=== PATIENT | male | born 2000 | race Caucasian/White ===

== ENCOUNTER 2025-04-09 11:07 | Inpatient (IN) | payer MEDICARE, MEDICAID, SELFPAY ==
[2025-04-09 11:44] VITALS: BP 115/53; PULSE 50; RESP 14; TEMP 36.3; O2SAT 100; BMI 29.8
--- NOTE | 2025-04-09 11:44 | ED.PSYCH ---
HPI - Psych General Chief Complaint: Psychiatric Symptoms Stated Complaint: Crisis Time Seen by Provider: 04/09/25 12:05 Source: patient Mode of arrival: ambulatory Limitations: no limitations History of Present Illness ED Provider: Hallie Núñez PA-C HPI Narrative: 25-year-old male with history of schizophrenia, recent homelessness who presents to the ER for psychiatric evaluation. He states he would like to talk to a psychiatric doctor because he is not feeling safe. He states he has been homeless for the last couple of days, previously residing at a friend's house but it ?was not a permanent solution. ? He states he has been hearing and seeing his uncle when he wakes up from sleeping and he is talking a lot of craziness. He also reports he is worried that his mom is in a gang and he feels unsafe. He states he is on risperidone, unknown dose, from [facility] and has been taking as prescribed. He is unable to endorse if the seeing/hearing his uncle is hallucinations or not. He denies any suicidal or homicidal thoughts. He states he is anxious and worried. He does not feel safe. MD complaint: anxiety Onset (ago): day(s) Duration: getting worse Context: significant life stressor Associated symptoms: denies other symptoms Treatments prior to arrival: none Related Data Home Medications ?Medication ?Instructions ?Recorded ?Confirmed lurasidone 40 mg tablet (Latuda) 40 mg PO DAILY@1700 04/10/25 04/10/25 melatonin 3 mg tablet 3 mg PO BEDTIME 04/10/25 04/10/25 Allergies Allergy/AdvReac Type Severity Reaction Status Date / Time peanut Allergy Hives Verified 04/09/25 11:48 Review of Systems Review of Systems: Yes all other systems are reviewed and are negative PMFSH Social History Social History Household Members: None Housing: Homeless Do you presently have visiting nurse or other home services: No Patient Tobacco Use Status: Never used Tobacco Smoked in Last 30 Days: No Use of substances other than those prescribed or required for medical reasons: Yes Substance Use Type: Marijuana Substance Use Frequency: Chronic Longstanding Last Used Substance: Hours (ago) Currently Displaying Signs/Symptoms of Drug Intoxication Withdrawal: No Any prior treatment program specific to substance use: No Have you been hit, kicked, punched, or otherwise hurt by someone within the past year? If so, by whom?: No Do you feel safe in your current relationship?: No Current Relationship Is there a partner from a previous relationship who is making you feel unsafe now?: No Are you made to feel afraid or neglected: No Advance Directives: No Advance Directives Information Provided: No Do you have thoughts of harming others: None Do you have a plan to hurt others: No Plan Recently lost weight without trying: No Eating poorly because of decreased appetite: No Nutrition Risks: No Nutritional Risk Poor oral hygiene: No service: No Sexual orientation: Decline to Answer Physical Exam Exam: Exam: Appearance: Alert. Oriented X3. No acute distress. Head: normocephalic, atraumatic. Eyes: Pupils equal, round and reactive to light. ENT: Pharynx normal. No tonsillar swelling or exudate. Neck: Normal inspection. Neck supple. CVS: Normal heart rate and rhythm. Pulses normal. Respiratory: No respiratory distress. Breath sounds normal. Abdomen: Soft and nontender. +BS x4 Skin: Skin warm and dry. Normal skin color. Normal skin turgor. No rashes. Extremities: No lower extremity edema. No joint swelling. Neuro/psych: Oriented X 3. No motor deficit. No sensory deficit. CN II-XII intact. Flat affect, makes eye contact. Difficulty answering some questions, delayed responses. no SI or HI. does not seem to be responding to any internal stimuli Vital Signs: Vital Signs: Last Vital Signs Temp 96.9 F 04/12/25 08:00 Pulse 71 04/12/25 08:00 Resp 18 04/12/25 08:00 BP 134/85 04/12/25 08:00 Pulse Ox 98 04/12/25 08:00 O2 Del Method Room Air 04/12/25 08:00 BMI result Body Mass Index 29.8 Course Course Course Narrative: This is a rapid medical exam performed by Jermaine Bruno NP: Additional HPI, ROS, PE not included below will be deferred to primary provider. Patient is a 25-year-old male presenting to the ED stating that he feels unsafe, but denies SI, HI, AH, VH. Flat affect in triage. States he is on the waiting list for a therapist, currently has a psychiatrist. Plan: Med clearance, CARE team eval Reevaluation(s) Reevaluation #1: Physician observation started at 12:44. Patient placed in physician observation because patient is awaiting CARE team evaluation for the possible need of inpatient psych admission. At the time observation was started patient's vital signs were stable. Patient is alert and oriented. Neuro exam is non-focal. CV: RRR and lungs are clear. Will continue to monitor. Time: 12:44 Reevaluation #2: patient seen by CARE team - recommending inpatient level of care, will be a section 12 Time: 13:28 Reevaluation #3: Time: 06:47 Date: 04/10/25 Provider: Giuliano Morgan MD Patient in physician observation for psychiatric evaluation.? No acute events reported overnight. No current complaints. VS stable.? Patient is in bed search status/pending CARE team evaluation. Will continue to monitor. Medications Administered Generic Name Dose Route Start Last Admin Trade Name Freq PRN Reason Stop Dose Admin Lurasidone HCl 40 mg 04/09/25 17:00 04/11/25 17:25 Lurasidone Hcl 40 Mg Tablet PO 40 mg DAILY@1700 RIKKI Administration Magnesium Hydroxide 30 ml 04/10/25 17:11 04/11/25 13:51 Milk Of Magnesia 30 Ml Oral.Susp PO 30 ml DAILY PRN Administration Constipation Melatonin 3 mg 04/10/25 21:00 04/11/25 21:03 Melatonin 3 Mg Tablet PO Not Given BEDTIME [facility] Medical Decision Making Medical Decision Making [facility] Narrative: 25 yo male with history of schizophrenia, homeless presenting with anxiety, feeling unsafe with concerns for his seeing and hearing of his uncle being hallucinations. labs show some mildly elevated bicarb 31, BUN 21 with normal SCr. likely due to some mild dehydration. he also has mildly elevated transaminases with normal bilirubin and ALP. no RUQ pain. denies drug use. does not have previous labs to compare. PO tray ordered. Will have the crisis team evaluate him for possible need of inpatient psychiatric care - admit to [facility] Differential Diagnosis Differential Diagnoses: The differential diagnosis associated with the presentation includes substance induced mood disorder, acute psychosis, schizophrenia, schizoaffective disorder, PTSD, bipolar disorder, major depression with psychotic features Admission/Observation Consideration of admission/observation: Escalation of care including admission/observation considered Lab Data [facility] Lab Attestation statement: I reviewed the patient's lab results. mild anemia, leukopenia, mildly elevated bicarb 04/09/25 11:54 04/11/25 09:09 Labs: Lab Results 04/09/25 04/09/25 Range/Units 11:54 12:23 WBC 3.0 L (4.8-10.8) X10*3/uL RBC 3.97 L (4.60-5.80) X10*6/uL Hgb 12.5 L (14.0-18.0) g/dl Hct 37.1 L (42.0-52.0) % MCV 93.5 (80.0-98.0) fL MCH 31.5 (27.0-33.0) pg MCHC 33.7 (31.0-36.0) g/dl RDW 13.2 (11.0-16.0) % Plt Count 236 (160-400) X10*3/uL MPV 9.9 (9.4-12.4) fL Immature Gran % (Auto) 0.0 (0.0-0.4) % Neut % (Auto) 45.0 (45-73) % Lymph % (Auto) 36.9 (20-40) % [place] % (Auto) 10.4 (2-11) % Eos % (Auto) 6.4 H (0-4) % Baso % (Auto) 1.3 (0-2) % Lymph # (Auto) 1.1 L (1.2-4.9) X10*3/uL [place] # (Auto) 0.3 (0.1-1.2) X10*3/uL Eos # (Auto) 0.2 (0.0-0.4) X10*3/uL Baso # (Auto) 0.0 (0.0-0.2) X10*3/uL Abs Immat Gran (auto) 0.00 (0.00-0.03) X10*3/uL Absolute Neuts (auto) 1.3 L (2.0-8.3) x10*3/uL Absolute Nucleated RBC 0.000 (0.0-0.012) X10*3/uL Nucleated RBC % (auto) 0.0 (0.0-0.2) /100WBC Sodium 140 (135-145) mmol/L Potassium 4.1 (3.3-5.1) mmol/L Chloride 103 (96-108) mmol/L Carbon Dioxide 31 H (22-29) mmol/L Anion Gap 10 L (12-20) BUN 21 H (9-16) mg/dL Creatinine 1.03 (0.5-1.4) mg/dL Estim Creat Clear Calc 122.5 Estimated GFR > 60 Random Glucose 93 (60-115) mg/dL Calcium 8.5 (8.4-10.2) mg/dL Total Bilirubin 0.4 (0.0-1.0) mg/dL AST 52 H (5-37) U/L ALT 45 H (0-40) U/L Alkaline Phosphatase 60 (39-117) U/L Total Protein 6.3 L (6.5-8.0) g/dL Albumin 4.3 (3.5-5.0) g/dL Urine Color Yellow Urine Appearance Clear Urine pH 7.0 (5.0-9.0) Ur Specific [place] <= 1.005 (1.005-1.025) Urine Protein Negative (Neg-Trace) mg/dL Urine Glucose (UA) Negative (Negative) mg/dL Urine Ketones Negative (Negative) mg/dL Urine Blood Negative (Negative) Urine Nitrite Negative (Negative) Ur Leukocyte Esterase Trace H (Negative) Urine RBC 0-2 (0-2) /HPF Urine WBC 0-5 (0-5) /HPF Ur Squamous Epith Cells 0-2 (0-2) /HPF Urine Bacteria None Seen (None Seen) Hyaline Casts 0-2 (0-2) /LPF Urine Opiates Screen Not Detected (Not Detect) Ur Buprenorphine Scrn Not Detected (Not Detect) ng/mL Ur Oxycodone Screen Not Detected (Not Detect) ng/mL Urine Methadone Screen Not Detected (Not Detect) ng/mL Urine Fentanyl Screen Not Detected (Not Detect) Ur Barbiturates Screen Not Detected (Not Detect) Ur Phencyclidine Scrn Not Detected (Not Detect) Ur Amphetamines Screen Not Detected (Not Detect) U Benzodiazepines Scrn Not Detected (Not Detect) Urine Cocaine Screen Not Detected (Not Detect) U Marijuana (THC) Screen POSITIVE H (Not Detect) Ethyl Alcohol 10 mg/dL Influenza Type A (PCR) NEGATIVE (Negative) Influenza Type B (PCR) NEGATIVE (Negative) RSV RNA Qual (PCR) NEGATIVE (Negative) SARS-CoV-2 RNA (RT-PCR) NEGATIVE (Negative) Prescription Management I considered prescription management with: Other (antipsychotic) Chronic Conditions Patient?s care impacted by: Other (schizophrenia) Social Determinants Patient?s care significantly limited by Social Determinants of Health including: Inadequate housing, Problems related to primary support group and Other Social Determinant of Health Critical Care Time Critical Care Time Critical Care Time: No Discharge Plan Discharge Clinical Impression: Schizophrenia Qualifiers: Schizophrenia type: unspecified Qualified Code(s): F20.9 - Schizophrenia, unspecified Patient Disposition: Admitted As Inpatient Interventions: Admission Worksheet (ED) Last Done: 04/10/25 17:39 Discharge Date/Time: 04/10/25 17:57
[2025-04-09 12:04] LABS: MANUAL DIFF FLAG NO
[2025-04-09 12:06] LABS: Hematocrit 37.1 % (42.0-52.0); Hemoglobin 12.5 g/dl (14.0-18.0); Imm Gran Abs Auto 0.00 X10*3/uL (0.00-0.03); Imm Gran Pct Auto 0.0 % (0.0-0.4); Lymphocytes Absolute Auto 1.1 X10*3/uL (1.2-4.9); Mean Corpuscular HGB Conc 33.7 g/dl (31.0-36.0); Mean Corpuscular Hemoglobin 31.5 pg (27.0-33.0); Mean Corpuscular Volume 93.5 fL (80.0-98.0); NRBC Abs Auto 0.000 X10*3/uL (0.0-0.012); NRBC Pct Auto 0.0 /100WBC (0.0-0.2); Platelet Count 236 X10*3/uL (160-400); Red Blood Count 3.97 X10*6/uL (4.60-5.80); White Blood Count 3.0 X10*3/uL (4.8-10.8)
[2025-04-09 12:27] LABS: Alanine Aminotransferase 45 U/L (0-40); Albumin Level 4.3 g/dL (3.5-5.0); Alkaline Phosphatase 60 U/L (39-117); Anion Gap 10 (12-20); Aspartate Amino Transferase 52 U/L (5-37); Blood Urea Nitrogen 21 mg/dL (9-16); Calcium 8.5 mg/dL (8.4-10.2); Carbon Dioxide 31 mmol/L (22-29); Chloride 103 mmol/L (96-108); Creatinine Clr Calc Pharmacy 122.5; Estimated Glomerular Filt Rate > 60; Potassium 4.1 mmol/L (3.3-5.1); Sodium 140 mmol/L (135-145); Total Protein 6.3 g/dL (6.5-8.0)
--- OUTSIDE RECORDS SUMMARY | 2025-04-09 12:33 | XMS_ITS | Clinical Summary ---
Author Organization [facility] Address [address] [place] [address] Phone Care Team Providers Care Mental Retardation Aide Name Role Phone Physician, Pcp Unknown Primary Care Provider Tomasa vailable Allergies Active Allergy Reactions Criticality Noted Date Comments Peanut 03/14/2025 Shellfish Derived 03/15/2025 Medications Lactobacillus acidophilus 100 mg (1 billion cell) capsule Take 1 capsule by mouth 2 (two) times a day. 60 each 5 04/14/20 25 Active metoclopramide (REGLAN) 10 mg tablet Take 1 tablet (10 mg total) by mouth every 6 (six) hours for 3 days. 12 each 5 03/18/20 25 Encounters Date Type Department Care Team Description 03/15/2025 10:20 PM EDT - 03/16/2025 12:12 AM EDT Emergency [facility] Emergency [address] [place] [phone] Nauseated (Primary Dx); Homeless Discharge Disposition: Home or Self Care 03/15/2025 12:12 AM EDT - 03/15/2025 12:29 AM EDT Emergency [facility] Emergency [address] [place] [phone] Lalit Garcia MD Diarrhea, unspecified type (Primary Dx) Discharge Disposition: Home or Self Care from Last 3 Months Social History Tobacco Use Types Packs/Day Years Used Date Smoking Tobacco: Never Smokeless Tobacco: Never Tobacco Cessation:Counseling Given: Not Answered Sex and Gender Information Value Date Recorded Sex Assigned at Not on file Legal Sex Male 1:55 PM EST Gender Identity Not on file Sexual Orientation Not on file Obstetrics History Last Filed Vital Signs Vital Sign Reading Time Taken Comments Blood Pressure 115/70 03/15/2025 9:38 PM EDT Pulse 56 03/15/2025 9:38 PM EDT Temperature 36.5 C (97.7 F) 03/15/2025 9:38 PM EDT Respiratory Rate 16 03/15/2025 9:38 PM EDT Oxygen Saturation 97% 03/15/2025 9:38 PM EDT Inhaled Oxygen Concentration - - Weight 85.3 kg (188 lb) 03/14/2025 10:48 PM EDT Height 175.3 cm (5' 9 ) 03/14/2025 10:48 PM EDT Body Mass Index 27.76 03/14/2025 10:48 PM EDT Plan of Treatment Health Maintenance Due Date Last Done Comments Pneumococcal Vaccine: Pediatrics (0 to 5 Years) and At-Risk Patients (6 to 49 Years) (1 of 1 - PPSV23) 2006 02/06/2002, 2000, 2000, Additional history exists HIV Screening 07/29/2022 Hepatitis C Screening 07/29/2022 Medicare Annual Wellness Visit 07/29/2022 Social Influencers of Health Screening 07/29/2022 COVID-19 Vaccine ( season) 2024 Depression Screening 08/30/2024 Influenza Vaccine (#1) 2025 , 11/27/2021, 06/17/2018, Additional history exists DTaP,Tdap,and Td Vaccines (8 - Td or Tdap) 02/14/2030 02/15/2020, 12/02/2011, 05/27/2005, Additional history exists Hepatitis B Vaccines Completed 2000, 2000, 2000 HIB Vaccines Completed 02/06/2002, 11/29, 2000, Additional history exists IPV Vaccines Completed 05/27/2005, 10/28, 2000, Additional history exists MMR Vaccines Completed 05/27/2005, 02/06/2002 Varicella Vaccines Completed 09/17/2010, 04/18/2001 Hepatitis A Vaccines Completed 12/02/2011, 12/07/19 08 HPV Vaccines Completed 03/30/2013, 05/01, 02/24/2012 Meningococcal ACWY Vaccine Completed 04/28/2016, Meningococcal B Vaccine Aged Out No l onger eligible based on patient's age to complete this topic RSV Immunization Patients Under 20 months Aged Out No longer eligible based on patient's age to complete this topic Insurance MEDICAID - [place] MEDICARE Care Teams Mental Retardation Aide Relationship Specialty Start Date End Date Physician, Pcp Unknown PCP - General 03/15/25
[2025-04-09 12:39] LABS: Appearance Urine Clear; Glucose Urine UA Negative (Negative); PH 7.0 (5.0-9.0); Specific Gravity - Urine <= 1.005 (1.005-1.025); UMIC TRIGGER UACC YES
[2025-04-09 12:42] LABS: Resp Syncy Virus RNA Qual PCR NEGATIVE (Negative); SARS COV2 PCR INHOUSE NEGATIVE (Negative)
[2025-04-09 12:47] LABS: Cannabinoid Screen Urine POSITIVE (Not Detect)
--- NOTE | 2025-04-09 14:01 | MHC.CARE ---
Patient will be ADULT IPLOC. Section 12a in chart for safety.
[2025-04-09 15:45] VITALS: BP 120/65; PULSE 58; RESP 16; TEMP 36.6; O2SAT 99
[2025-04-09 21:46] VITALS: BP 118/63; PULSE 56; RESP 16; TEMP 37.3; O2SAT 100
--- NOTE | 2025-04-10 | ECG_ITS ---
Test Reason : R/O PROLONGED QT Blood Pressure : */* mmHG Vent. Rate : 55 BPM Atrial Rate : 55 BPM P-R Int : 154 ms QRS Dur : 108 ms QT Int : 418 ms P-R-T Axes : 44 19 1 degrees QTcB Int : 399 ms Sinus bradycardia Nonspecific T wave abnormality Abnormal ECG No previous ECGs available Referred By: Valencia Núñez Electronically Signed By: Leif Ramsey
[2025-04-10 06:28] VITALS: BP 117/65; PULSE 60; RESP 16; TEMP 37.2; O2SAT 99
--- NOTE | 2025-04-10 07:58 | PC.NURSE ---
Assumed care of patient at 0645, patient appears to be in no apparent distress this am, calm and cooperative, resting on couch in BH 8. Continue plan of care for IPLOC
[2025-04-10 09:41] VITALS: BP 121/59; PULSE 68; RESP 16; TEMP 37.1; O2SAT 97
--- NOTE | 2025-04-10 10:51 | PHA.MEDREC ---
Addendum entered by Heidi Graf RPh 04/10/25 10:53: reviewed by ady Original Note: Pharmacy Consult ? Medication Reconciliation Pharmacy has completed the medication reconciliation. Spoke with pt and he confirmed he is only taking Lurasidone 40mg 1 QD and Melatonin 3mg tabs 1 at bedtime for sleep and nothing else at this time.
[2025-04-10 14:47] VITALS: BP 126/68; PULSE 78; RESP 15; TEMP 36; O2SAT 98
--- NOTE | 2025-04-10 18:47 | PC.ADMIT ---
PT IS A 25 YEAR OLD, MALE ADMITTED TO [facility] FROM [facility] ON A CONDITIONAL VOLUNTARY. PT HAS A PREVIOUS DIAGNOSIS OF SCHIZOPHRENIA. PT REPORTS THAT HE HAS BEEN MED COMPLIANT BUT NURSE TO NURSE FROM ED RN EXPRESSED NON-COMPLIANCE WITH PSYCHIATRIC MEDICATIONS PRIOR TO ARRIVAL TO HOSPITAL. PT IS INDEPENDENT WITH AMBULATION AND ADLS. DENIES ANY MEDICAL CONDITIONS. PT WAS COMPLIANT WITH FASHION MERCHANDISER AND SKIN CHECK WAS UNREMARKABLE. PT REPORTS THAT HE CAME IN BECAUSE HE HAS BEEN LIVING ON THE STREETS, HAS NO FAMILY OR SUPPORT SYSTEM OTHER THAN A FEW FRIENDS AND WAS SCARED FOR HIS LIFE . WHEN RN ASKED IF PT WAS AFRAID OF HIMSELF OR OTHERS, HE STATED MYSELF BUT DENIED ANY THOUGHTS TO HARM OR KILL HIMSELF. PT DENIES SI/HI. DENIES ANY AUDITORY, VISUAL, OR TACTILE DISTURBANCES. PT REPORTS SLEEPING WELL AND EATING WELL. PT HAS A CONSTRICTED AFFECT AND REPLIES IN WORD WORD ANSWERS. PT IS GUARDED AND DISMISSIVE BUT PLEASANT. DENIES HAVING ANY RESTRAINTS OR ASSAULTIVE BEHAVIORS DURING PRIOR HOSPITALIZATIONS. FEELS SAFE ON UNIT.
[2025-04-10 20:00] VITALS: BP 134/73; PULSE 82; RESP 16; TEMP 36.6; O2SAT 98
--- NOTE | 2025-04-10 20:29 | HO.PSYADMNOT ---
HPI Date of Service: 04/10/25 Chief Complaint: decompensated Sources of Information: patient interviewed, chart reviewed and crisis/core team assessment reviewed HPI Subjective Notes: Ward Warning and Conditional Voluntary Healthcare Proxy: No Guardianship: No Medical Problems Affecting Mental Status: No Narrative: Per care team note, patient is a 25 years old single Slovak-speaking male with history of schizophrenic who self presented to the ED reporting feeling unsafe and homelessness. Patient reports he has been seeing and hearing his uncle and unable to identify if this is a hallucinations or not. He also will believe his mom is in a gang. Precipitants: Been homeless for about a month, and feel unsafe in community, I was feeling unsafe, I do not want to get worse as I am on the street . Not able to identify what his mental health worse, increased depression anxiety Patient able to disclose more details why he does not feel safe, he reports that he getting sick easily, specific saying that he may get fever. Reports has no family support, no outpatient supports except for psychiatrist. He has not talking to family for a long time, as I do not want to talk to them. We are not understanding, and can not communicate well . Sometimes he stay with his friend. Denies any legal issues. However reports that the charge of stealing was dropped of this year Denies access to guns. Denies SI/SIB/HI/AVH. Denies suicidal thoughts history. Denies suicide attempt history. Mood is moderate anxiety and depression, denies sleep or appetite issues, speech is monotone, ? Thought blocks, he is limited, slow to respond, poor insight and judgment. Do not appear to be psychotic, do not make any delusional or paranoid statements. reports consistently taking medication. Housing is unstable, he is able to advocate for self. He has been staying with a friend for the past couple of weeks. He can not identify goals that he wants work on while he is here. . Past Psychiatric History: Reports at least 10 inpatient level of care admissions, with last admission was in January at [facility] for the same reason: Being homeless. No history of PHP, this tox. Outpatient psychiatrist Betzy Ribera- [facility]: Last seen was last month. He is on waiting list for therapist. He has PCP, however not sure when he last seen. Medication trials: Latuda. He can not recall any trials before. Medical Evaluation Reviewed: Yes PMFSH Narrative: Reports having asthma. Narrative: Surgery on left arm hx Family History: Reported that he left his parents at 18 years old, has not talking to them, feel like they can not communicate well, I do not want to talk to them we are not understanding . Reported that his parents have mental health illnesses, unsure in details. Reports that he is not sure if any substance use in his family. He also has a older brother who is autistic. Social History: He is single, never , has no children, graduated from high school, was in 1st year of college but dropped out. He used to work at [employer] in the [employer] back in 2022. Currently unemployed. Being homeless, sometimes stay with a friend. Substance History: Denies substance use. Denies cigarette smoking. However reports smoking marijuana daily. Trauma History: Denies trauma history Diagnostics Vital Signs (24Hr): Vital Signs - 24 hr 04/09/25 21:46 04/10/25 06:28 04/10/25 09:41 Temperature 99.2 F 98.9 F 98.7 F Pulse Rate 56 60 68 Respiratory Rate 16 16 16 Blood Pressure 118/63 117/65 121/59 L Pulse Oximetry 100 99 97 Oxygen Delivery Method Room Air Room Air Room Air 04/10/25 14:47 Temperature 96.8 F Pulse Rate 78 Respiratory Rate 15 Blood Pressure 126/68 Pulse Oximetry 98 Oxygen Delivery Method Room Air BMI result Body Mass Index 29.8 Labs 04/09/25 11:54 04/09/25 11:54 Labs: Laboratory Results - last 48 hr 04/09/25 04/09/25 11:54 12:23 WBC 3.0 L RBC 3.97 L Hgb 12.5 L Hct 37.1 L MCV 93.5 MCH 31.5 MCHC 33.7 RDW 13.2 Plt Count 236 MPV 9.9 Immature Gran % (Auto) 0.0 Neut % (Auto) 45.0 Lymph % (Auto) 36.9 [place] % (Auto) 10.4 Eos % (Auto) 6.4 H Baso % (Auto) 1.3 Lymph # (Auto) 1.1 L [place] # (Auto) 0.3 Eos # (Auto) 0.2 Baso # (Auto) 0.0 Abs Immat Gran (auto) 0.00 Absolute Neuts (auto) 1.3 L Absolute Nucleated RBC 0.000 Nucleated RBC % (auto) 0.0 Sodium 140 Potassium 4.1 Chloride 103 Carbon Dioxide 31 H Anion Gap 10 L BUN 21 H Creatinine 1.03 Estim Creat Clear Calc 122.5 Estimated GFR > 60 Random Glucose 93 Calcium 8.5 Total Bilirubin 0.4 AST 52 H ALT 45 H Alkaline Phosphatase 60 Total Protein 6.3 L Albumin 4.3 Urine Color Yellow Urine Appearance Clear Urine pH 7.0 Ur Specific [place] <= 1.005 Urine Protein Negative Urine Glucose (UA) Negative Urine Ketones Negative Urine Blood Negative Urine Nitrite Negative Ur Leukocyte Esterase Trace H Urine RBC 0-2 Urine WBC 0-5 Ur Squamous Epith Cells 0-2 Urine Bacteria None Seen Hyaline Casts 0-2 Urine Opiates Screen Not Detected Ur Buprenorphine Scrn Not Detected Ur Oxycodone Screen Not Detected Urine Methadone Screen Not Detected Urine Fentanyl Screen Not Detected Ur Barbiturates Screen Not Detected Ur Phencyclidine Scrn Not Detected Ur Amphetamines Screen Not Detected U Benzodiazepines Scrn Not Detected Urine Cocaine Screen Not Detected U Marijuana (THC) Screen POSITIVE H Ethyl Alcohol 10 Influenza Type A (PCR) NEGATIVE Influenza Type B (PCR) NEGATIVE RSV RNA Qual (PCR) NEGATIVE SARS-CoV-2 RNA (RT-PCR) NEGATIVE Meds/Allergies Meds Home Medications ?Medication ?Instructions ?Recorded ?Confirmed ?Type lurasidone 40 mg tablet (Latuda) 40 mg PO DAILY@1700 04/10/25 04/10/25 History melatonin 3 mg tablet 3 mg PO BEDTIME 04/10/25 04/10/25 History Allergies Allergies Allergy/AdvReac Type Severity Reaction Status Date / Time peanut Allergy Hives Verified 04/09/25 11:48 Mental Status Exam Mental Status Exam Narrative: Patient is alert and oriented; behavior is cooperative, with mild to moderate anxiety and depression; patient is not in distress; dressed in hospital attire with kempt hair and adequate hygiene; mood is described as anxious and affect congruent; eye contact appropriate; Speech is normal rate, not talkative, poverty of thoughts, volume and prosody and not pressured; no psychomotor agitation/retardation present; thought process is organized and goal directed; Thought content is WNL, pertinent to relevant topics and without any delusional content, paranoid ideation or grandiosity; ? if thought blocked or at baseline, slow to respond. denies any SI/SIB/HI. Denies AH and there is no evidence of perceptual disturbance. Patient's insight and judgment poor. Assessment & Plan Assessment & Plan (1) Schizophrenia: Status: Acute Qualifiers: Schizophrenia type: unspecified Qualified Code(s): F20.9 - Schizophrenia, unspecified Code(s): F20.9 - Schizophrenia, unspecified Plan HPI: patient is a 25 years old single Slovak-speaking male with history of schizophrenic who self presented to the ED reporting feeling unsafe and homelessness. Patient reports he has been seeing and hearing his uncle and unable to identify if this is a hallucinations or not. He also will believe his mom is in a gang. Formulation/clinical reasoning: Feeling unsafe in community, being homeless which increased depression and anxiety, no family support, no support system, self for the psychiatry. History of schizophrenic, potential not compliant with medication, or at risk of not able to access to care. Increased marijuana use, presented with paranoid thoughts. Given the above information, patient could be benefit to admitted to the restrictive environment, monitor for safety, monitor for mental status, monitor psychosis, provide therapeutic environment where patient can learn coping skills for his depression and anxiety. Possible refer patient back to outpatient psychiatry services, plus therapist for aftercare. Hospital course: 04/10/25: Continue with home medication. Educate patient on Latuda which should be taken with food. Plan Patient on 15 minute checks for safety. Admitted to M3. CV. Diagnosis if necessary. Work with treatment team to do collateral and possible senior living for aftercare. Refer patient back to outpatient psychiatric services. He is on waiting list for therapist. Patient educated on: diagnosis, medication risk/benefits, substance abuse and therapeutic strategies Reason for continued inpatient stay Substantial Risk for: med/psych decompensation Statement Statement: I have reviewed the history and physical and performed a pertinent examination on my patient. No changes have occurred unless specified. If the History and Physical was not performed prior to admission, the Hospitalist's service will be consulted for completing the admission physical. Time Spent With Patient Time: Total time managing care of this patient today ____ minutes.
[2025-04-11 07:51] VITALS: BP 149/96; PULSE 54; RESP 16; TEMP 36.2; O2SAT 98
--- NOTE | 2025-04-11 09:07 | P.PNPSI_ITS ---
Subjective Subjective Date of Service: 04/11/25 Reason For Visit: decompensated Subjective Notes: Conditional Voluntary Interim History: Patient notes that he is feeling good. He slept well last night. He denies anxiety or depression. He denies SI/HI/AH/VH. He notes that he has been homeless for a long time and has been struggling to find a jail. Medication Compliance: Yes Side effects from medications: No Attending Groups: Intermittent Review of Systems Acute medical concerns: No Mental Status Exam Mental Status Exam Narrative: Appearance: Casually dressed, adequate hygiene Behavior: Calm and cooperative throughout the interview. Eye contact is appropriate, and there are no signs of psychomotor agitation or retardation Speech: Normal volume and prosody Thought process: Logical and goal-directed Thought content: Future oriented no self-harming thoughts Mood: Calm Affect: Flat SI:denies HI:denies VH/AH:none Delusions: None Insight/judgment: Fair insight and judgment Memory/cog: Alert, oriented x 4. grossly intact to conversational testing Diagnostics Vital Signs (24Hr): Vital Signs - 24 hr 04/10/25 09:41 04/10/25 14:47 04/10/25 20:00 Temperature 98.7 F 96.8 F 97.8 F Pulse Rate 68 78 82 Respiratory Rate 16 15 16 Blood Pressure 121/59 L 126/68 134/73 Pulse Oximetry 97 98 98 Oxygen Delivery Method Room Air Room Air Room Air 04/11/25 07:51 Temperature 97.2 F Pulse Rate 54 Respiratory Rate 16 Blood Pressure 149/96 H Pulse Oximetry 98 Oxygen Delivery Method Room Air BMI result Body Mass Index 29.8 Labs 04/09/25 11:54 04/11/25 09:09 Labs: Laboratory Results - last 48 hr 04/09/25 04/09/25 11:54 12:23 WBC 3.0 L RBC 3.97 L Hgb 12.5 L Hct 37.1 L MCV 93.5 MCH 31.5 MCHC 33.7 RDW 13.2 Plt Count 236 MPV 9.9 Immature Gran % (Auto) 0.0 Neut % (Auto) 45.0 Lymph % (Auto) 36.9 [place] % (Auto) 10.4 Eos % (Auto) 6.4 H Baso % (Auto) 1.3 Lymph # (Auto) 1.1 L [place] # (Auto) 0.3 Eos # (Auto) 0.2 Baso # (Auto) 0.0 Abs Immat Gran (auto) 0.00 Absolute Neuts (auto) 1.3 L Absolute Nucleated RBC 0.000 Nucleated RBC % (auto) 0.0 Sodium 140 Potassium 4.1 Chloride 103 Carbon Dioxide 31 H Anion Gap 10 L BUN 21 H Creatinine 1.03 Estim Creat Clear Calc 122.5 Estimated GFR > 60 Random Glucose 93 Calcium 8.5 Total Bilirubin 0.4 AST 52 H ALT 45 H Alkaline Phosphatase 60 Total Protein 6.3 L Albumin 4.3 Urine Color Yellow Urine Appearance Clear Urine pH 7.0 Ur Specific [place] <= 1.005 Urine Protein Negative Urine Glucose (UA) Negative Urine Ketones Negative Urine Blood Negative Urine Nitrite Negative Ur Leukocyte Esterase Trace H Urine RBC 0-2 Urine WBC 0-5 Ur Squamous Epith Cells 0-2 Urine Bacteria None Seen Hyaline Casts 0-2 Urine Opiates Screen Not Detected Ur Buprenorphine Scrn Not Detected Ur Oxycodone Screen Not Detected Urine Methadone Screen Not Detected Urine Fentanyl Screen Not Detected Ur Barbiturates Screen Not Detected Ur Phencyclidine Scrn Not Detected Ur Amphetamines Screen Not Detected U Benzodiazepines Scrn Not Detected Urine Cocaine Screen Not Detected U Marijuana (THC) Screen POSITIVE H Ethyl Alcohol 10 Influenza Type A (PCR) NEGATIVE Influenza Type B (PCR) NEGATIVE RSV RNA Qual (PCR) NEGATIVE SARS-CoV-2 RNA (RT-PCR) NEGATIVE Medications Medications Current Medications Acetaminophen (Acetaminophen 325 Mg Tablet) 650 mg PO Q6H PRN PRN Reason: Headache/Pain, Scale 1-10 Al Hydroxide/Mg Hydroxide (Magnesium Hydrox/Alum Hydrox 30 Ml Oral.Susp) 30 ml PO Q6H PRN PRN Reason: Heartburn/Nausea Hydroxyzine HCl (Hydroxyzine Hcl 25 Mg Tablet) 25 mg PO Q6H PRN PRN Reason: mild anxiety Lurasidone HCl (Lurasidone Hcl 40 Mg Tablet) 40 mg PO DAILY@1700 [facility] Last Admin: 04/10/25 16:16 Dose: 40 mg Magnesium Hydroxide (Milk Of Magnesia 30 Ml Oral.Susp) 30 ml PO DAILY PRN PRN Reason: Constipation Melatonin (Melatonin 3 Mg Tablet) 3 mg PO BEDTIME [facility] Last Admin: 04/10/25 21:05 Dose: Not Given Nicotine (Nicotine 21 Mg Patch.Td24) 21 mg TRANSDERMA DAILY PRN PRN Reason: smoking cessation Nicotine Polacrilex (Nicotine Polacrilex 2 Mg Gum) 4 mg BUCCAL Q2H PRN PRN Reason: Nicotine Cravings Olanzapine (Olanzapine 5 Mg Tablet) 5 mg PO TID PRN PRN Reason: agitation Trazodone HCl (Trazodone Hcl 50 Mg Tablet) 50 mg PO BEDTIME MRX1 PRN PRN Reason: Insomnia Allergies Allergies Allergy/AdvReac Type Severity Reaction Status Date / Time peanut Allergy Hives Verified 04/09/25 11:48 Assessment & Plan Assessment & Plan (1) Schizophrenia: Qualifiers: Schizophrenia type: unspecified Qualified Code(s): F20.9 - Schizophrenia, unspecified Status: Acute Code(s): F20.9 - Schizophrenia, unspecified Plan HPI: patient is a 25 years old single [place] Islander-speaking male with history of schizophrenic who self presented to the ED reporting feeling unsafe and homelessness. Patient reports he has been seeing and hearing his uncle and unable to identify if this is a hallucinations or not. He also will believe his mom is in a gang. Formulation/clinical reasoning: Feeling unsafe in community, being homeless which increased depression and anxiety, no family support, no support system, self for the psychiatry. History of schizophrenic, potential not compliant with medication, or at risk of not able to access to care. Increased marijuana use, presented with paranoid thoughts. Given the above information, patient could be benefit to admitted to the restrictive environment, monitor for safety, monitor for mental status, monitor psychosis, provide therapeutic environment where patient can learn coping skills for his depression and anxiety. Possible refer patient back to outpatient psychiatry services, plus therapist for aftercare. Hospital course: 04/10/25: Continue with home medication. Educate patient on Latuda which should be taken with food. 04/11: Continue current treatment regimen. aircraft layout worker to assist with housing placement. Plan Patient on 15 minute checks for safety. Admitted to M3. CV. Diagnosis if necessary. Work with treatment team to do collateral and possible jail for aftercare. Refer patient back to outpatient psychiatric services. He is on waiting list for therapist. Patient educated on: therapeutic strategies Reason for continued inpatient stay Substantial Risk for: rapid decompensation Time Spent With Patient Time: Total time managing care of this patient today ____ minutes.
[2025-04-11 09:43] LABS: Alanine Aminotransferase 47 U/L (0-40); Albumin Level 4.7 g/dL (3.5-5.0); Alkaline Phosphatase 65 U/L (39-117); Anion Gap 12 (12-20); Aspartate Amino Transferase 36 U/L (5-37); Blood Urea Nitrogen 18 mg/dL (9-16); Calcium 9.3 mg/dL (8.4-10.2); Carbon Dioxide 29 mmol/L (22-29); Chloride 100 mmol/L (96-108); Cholesterol 171 mg/dL (<200); Creatinine Clr Calc Pharmacy 124.9; Estimated Glomerular Filt Rate > 60; HDL Cholesterol 66 mg/dL (>40); Potassium 4.4 mmol/L (3.3-5.1); Sodium 137 mmol/L (135-145); Total Protein 7.0 g/dL (6.5-8.0); Triglycerides 92 mg/dL (<150)
[2025-04-11 11:24] LABS: Hemoglobin A1C 161.3151 umol/L; Total Hemoglobin (HGBA1C) 4438.5322 umol/L
[2025-04-11] MEDS: Milk of Magnesia 30 ML ORAL.SUSP PO (13:51)
[2025-04-11 20:14] VITALS: BP 116/58; PULSE 84; RESP 16; TEMP 36.3; O2SAT 97
[2025-04-12 08:00] VITALS: BP 134/85; PULSE 71; RESP 18; TEMP 36.1; O2SAT 98
--- NOTE | 2025-04-12 09:14 | P.PNPSI_ITS ---
Subjective Subjective Date of Service: 04/12/25 Reason For Visit: decompensated Subjective Notes: Conditional Voluntary Interim History: She notes that he is feeling good. He denies anxiety or depression. He denies SI/HI/AVH. Observed pacing the hallway. Medication Compliance: Yes Side effects from medications: No Attending Groups: Intermittent Review of Systems Acute medical concerns: No Mental Status Exam Mental Status Exam Narrative: Appearance: Casually dressed, adequate hygiene Behavior: Calm and cooperative throughout the interview. Eye contact is appropriate, and there are no signs of psychomotor agitation or retardation Speech: Normal volume and prosody Thought process: Logical and goal-directed Thought content: Future oriented no self-harming thoughts Mood: Calm Affect: Flat SI:denies HI:denies VH/AH:none Delusions: None Insight/judgment: Fair insight and judgment Memory/cog: Alert, oriented x 4. grossly intact to conversational testing Diagnostics Vital Signs (24Hr): Vital Signs - 24 hr 04/11/25 20:14 04/12/25 08:00 Temperature 97.4 F 96.9 F Pulse Rate 84 71 Respiratory Rate 16 18 Blood Pressure 116/58 L 134/85 Pulse Oximetry 97 98 Oxygen Delivery Method Room Air Room Air BMI result Body Mass Index 29.8 Labs 04/09/25 11:54 04/11/25 09:09 Labs: Laboratory Results - last 48 hr 04/11/25 09:09 Sodium 137 Potassium 4.4 Chloride 100 Carbon Dioxide 29 Anion Gap 12 BUN 18 H Creatinine 1.01 Estim Creat Clear Calc 124.9 Estimated GFR > 60 Random Glucose 97 Estimat Average Glucose 111 Hemoglobin A1c % 5.5 Calcium 9.3 D Total Bilirubin 0.3 Direct Bilirubin 0.1 AST 36 ALT 47 H Alkaline Phosphatase 65 Total Protein 7.0 Albumin 4.7 Triglycerides 92 Cholesterol 171 LDL Cholesterol, Calc 87 HDL Cholesterol 66 Medications Medications Current Medications Acetaminophen (Acetaminophen 325 Mg Tablet) 650 mg PO Q6H PRN PRN Reason: Headache/Pain, Scale 1-10 Al Hydroxide/Mg Hydroxide (Magnesium Hydrox/Alum Hydrox 30 Ml Oral.Susp) 30 ml PO Q6H PRN PRN Reason: Heartburn/Nausea Hydroxyzine HCl (Hydroxyzine Hcl 25 Mg Tablet) 25 mg PO Q6H PRN PRN Reason: mild anxiety Lurasidone HCl (Lurasidone Hcl 40 Mg Tablet) 40 mg PO DAILY@1700 [id number] Last Admin: 04/11/25 17:25 Dose: 40 mg Magnesium Hydroxide (Milk Of Magnesia 30 Ml Oral.Susp) 30 ml PO DAILY PRN PRN Reason: Constipation Last Admin: 04/11/25 13:51 Dose: 30 ml Melatonin (Melatonin 3 Mg Tablet) 3 mg PO BEDTIME [facility] Last Admin: 04/11/25 21:03 Dose: Not Given Nicotine (Nicotine 21 Mg Patch.Td24) 21 mg TRANSDERMA DAILY PRN PRN Reason: smoking cessation Nicotine Polacrilex (Nicotine Polacrilex 2 Mg Gum) 4 mg BUCCAL Q2H PRN PRN Reason: Nicotine Cravings Olanzapine (Olanzapine 5 Mg Tablet) 5 mg PO TID PRN PRN Reason: agitation Trazodone HCl (Trazodone Hcl 50 Mg Tablet) 50 mg PO BEDTIME MRX1 PRN PRN Reason: Insomnia Allergies Allergies Allergy/AdvReac Type Severity Reaction Status Date / Time peanut Allergy Hives Verified 04/09/25 11:48 Assessment & Plan Assessment & Plan (1) Schizophrenia: Qualifiers: Schizophrenia type: unspecified Qualified Code(s): F20.9 - Schizophrenia, unspecified Status: Acute Code(s): F20.9 - Schizophrenia, unspecified Plan HPI: patient is a 25 years old single Stateless-speaking male with history of schizophrenic who self presented to the ED reporting feeling unsafe and homelessness. Patient reports he has been seeing and hearing his uncle and unable to identify if this is a hallucinations or not. He also will believe his mom is in a gang. Formulation/clinical reasoning: Feeling unsafe in community, being homeless which increased depression and anxiety, no family support, no support system, self for the psychiatry. History of schizophrenic, potential not compliant with medication, or at risk of not able to access to care. Increased marijuana use, presented with paranoid thoughts. Given the above information, patient could be benefit to admitted to the restrictive environment, monitor for safety, monitor for mental status, monitor psychosis, provide therapeutic environment where patient can learn coping skills for his depression and anxiety. Possible refer patient back to outpatient psychiatry services, plus therapist for aftercare. Hospital course: 04/10/25: Continue with home medication. Educate patient on Latuda which should be taken with food. 04/11: Continue current treatment regimen. pond worker to assist with housing placement. 04/12: Continue current treatment regimen. Plan Patient on 15 minute checks for safety. Admitted to M3. CV. Diagnosis if necessary. Work with treatment team to do collateral and possible custodial for aftercare. Refer patient back to outpatient psychiatric services. He is on waiting list for therapist. Patient educated on: therapeutic strategies Reason for continued inpatient stay Substantial Risk for: rapid decompensation Time Spent With Patient Time: Total time managing care of this patient today ____ minutes.
[2025-04-12 20:00] VITALS: BP 149/78; PULSE 75; RESP 18; TEMP 36.4; O2SAT 98
[2025-04-13 08:00] VITALS: BP 108/61; PULSE 70; RESP 18; TEMP 36.2; O2SAT 100
--- NOTE | 2025-04-13 09:53 | P.PNPSI_ITS ---
Subjective Subjective Date of Service: 04/13/25 Reason For Visit: decompensated Healthcare Proxy: No Guardianship: No Medical Problems Affecting Mental Status: No Interim History: Romeo is visable on the unit, yet isolative, walking the haley, appears focused, preoccupied and irritated. Questionably responding to internal stimuli. Denies questions or concerns when we met, denies symptoms of depression, anxiety. Denies AH, VH. Not attending milieu groups. Reports eating and sleeping are intact. Team is in the process of working on pt attending [facility] for housing. Pt reports, that is why he is here, for help with housing. Compliant with Latuda. Medication Compliance: Yes Side effects from medications: No Attending Groups: No Review of Systems Acute medical concerns: No Medical Review of Systems: unchanged Review of Systems Review of Systems Denies Mental Status Exam Mental Status Exam Patient Appearance: Appropriate Patient Orientation: Person, Place, Time and Situation Level of Consciousness: Alert Patient Behavior: Guarded, Suspicious, Avoidant and Good Eye Contact Mood Description: Constricted Affect Description: Constricted Patient Cognition Impaired: No Ability to Follow Directions: Good Speech Pattern: Spontaneous Speech Memory Description: Intact Hallucinations: None (denies) Thought Process: Distracted and Goal Oriented Thought Content: positive for Circumstantial, positive for Suicidal Ideation (denies) and positive for Homicidal Ideation (denies) Judgement: Fair Diagnostics Vital Signs (24Hr): Vital Signs - 24 hr 04/12/25 20:00 04/13/25 08:00 Temperature 97.6 F 97.1 F Pulse Rate 75 70 Respiratory Rate 18 18 Blood Pressure 149/78 H 108/61 Pulse Oximetry 98 100 Oxygen Delivery Method Room Air Room Air BMI result Body Mass Index 30.0 Labs 04/09/25 11:54 04/11/25 09:09 Labs: Laboratory Results - last 48 hr 04/11/25 09:09 Estimat Average Glucose 111 Hemoglobin A1c % 5.5 Medications Medications Current Medications Acetaminophen (Acetaminophen 325 Mg Tablet) 650 mg PO Q6H PRN PRN Reason: Headache/Pain, Scale 1-10 Al Hydroxide/Mg Hydroxide (Magnesium Hydrox/Alum Hydrox 30 Ml Oral.Susp) 30 ml PO Q6H PRN PRN Reason: Heartburn/Nausea Hydroxyzine HCl (Hydroxyzine Hcl 25 Mg Tablet) 25 mg PO Q6H PRN PRN Reason: mild anxiety Lurasidone HCl (Lurasidone Hcl 40 Mg Tablet) 40 mg PO DAILY@1700 [facility] Last Admin: 04/12/25 16:52 Dose: 40 mg Magnesium Hydroxide (Milk Of Magnesia 30 Ml Oral.Susp) 30 ml PO DAILY PRN PRN Reason: Constipation Last Admin: 04/11/25 13:51 Dose: 30 ml Melatonin (Melatonin 3 Mg Tablet) 3 mg PO BEDTIME [facility]KKI Last Admin: 04/12/25 20:30 Dose: Not Given Nicotine (Nicotine 21 Mg Patch.Td24) 21 mg TRANSDERMA DAILY PRN PRN Reason: smoking cessation Nicotine Polacrilex (Nicotine Polacrilex 2 Mg Gum) 4 mg BUCCAL Q2H PRN PRN Reason: Nicotine Cravings Olanzapine (Olanzapine 5 Mg Tablet) 5 mg PO TID PRN PRN Reason: agitation Trazodone HCl (Trazodone Hcl 50 Mg Tablet) 50 mg PO BEDTIME MRX1 PRN PRN Reason: Insomnia Allergies Allergies Allergy/AdvReac Type Severity Reaction Status Date / Time peanut Allergy Hives Verified 04/09/25 11:48 Assessment & Plan Assessment & Plan (1) Schizophrenia: Qualifiers: Schizophrenia type: unspecified Qualified Code(s): F20.9 - Schizophrenia, unspecified Status: Acute Code(s): F20.9 - Schizophrenia, unspecified Plan HPI: patient is a 25 years old single Trinidadian-speaking male with history of schizophrenic who self presented to the ED reporting feeling unsafe and homelessness. Patient reports he has been seeing and hearing his uncle and unable to identify if this is a hallucinations or not. He also will believe his mom is in a gang. Formulation/clinical reasoning: Feeling unsafe in community, being homeless which increased depression and anxiety, no family support, no support system, self for the psychiatry. History of schizophrenic, potential not compliant with medication, or at risk of not able to access to care. Increased marijuana use, presented with paranoid thoughts. Given the above information, patient could be benefit to admitted to the restrictive environment, monitor for safety, monitor for mental status, monitor psychosis, provide therapeutic environment where patient can learn coping skills for his depression and anxiety. Possible refer patient back to outpatient psychiatry services, plus therapist for aftercare. Hospital course: 04/10/25: Continue with home medication. Educate patient on Latuda which should be taken with food. 8/13: Continue current treatment regimen. sheet metal worker maintenance to assist with housing placement. 04/12: Continue current treatment regimen. 04/13: Continue tx Plan Patient on 15 minute checks for safety. Admitted to M3. CV. Diagnosis if necessary. Work with treatment team to do collateral and possible [facility] for aftercare. Refer patient back to outpatient psychiatric services. He is on waiting list for therapist. Reason for continued inpatient stay Substantial Risk for: rapid decompensation Time Spent With Patient Time: Total time managing care of this patient today ____ minutes.
[2025-04-14 08:00] VITALS: BP 124/61; PULSE 57; RESP 16; TEMP 36.4; O2SAT 100
--- NOTE | 2025-04-14 09:19 | P.PNPSI_ITS ---
Subjective Subjective Date of Service: 04/14/25 Reason For Visit: decompensated Interim History: met with patient; discussed with team Patient remains pacing by himself throughout the day; guarded but overall cooperative on approach. He says that he is good when asked and says that AH has resolved since getting on Latuda. Janitor And Cleaner discussed further increasing dose (as patient remains internally preoccupied and with some disorganized behavior, i.e. pacing nonstop, not interacting with peers) however patient declines, does not want increase at all because he feels it was enough to take the voices away. Asks about discharge and will discuss with primary team provider when she return. Mental Status Exam Mental Status Exam Narrative: Pt is alert and oriented; behavior is guarded but cooperative (superficially) on approach; pacing the halls most of the day by himself, not interacting much with others; patient is not in distress; dressed in casual attire with unkempt hair but adequate hygiene; mood is described as good and affect both blunted and constricted; eye contact appropriate; Speech is sparse but normal rate, volume and prosody and not pressured; some psychomotor agitation present; thought process is goal directed, though concrete; Thought content is on not disclosed other than discharge; no expressions of paranoid ideations; denies any SI/HI. Denies AVH (who appears internally preoccupied). Patients insight and judgment improved Diagnostics Vital Signs (24Hr): Vital Signs - 24 hr 04/14/25 08:00 Temperature 97.6 F Pulse Rate 57 Respiratory Rate 16 Blood Pressure 124/61 Pulse Oximetry 100 Oxygen Delivery Method Room Air BMI result Body Mass Index 30.0 Labs 04/09/25 11:54 04/11/25 09:09 Medications Medications Current Medications Acetaminophen (Acetaminophen 325 Mg Tablet) 650 mg PO Q6H PRN PRN Reason: Headache/Pain, Scale 1-10 Al Hydroxide/Mg Hydroxide (Magnesium Hydrox/Alum Hydrox 30 Ml Oral.Susp) 30 ml PO Q6H PRN PRN Reason: Heartburn/Nausea Hydroxyzine HCl (Hydroxyzine Hcl 25 Mg Tablet) 25 mg PO Q6H PRN PRN Reason: mild anxiety Lurasidone HCl (Lurasidone Hcl 40 Mg Tablet) 40 mg PO DAILY@1700 [facility] Last Admin: 04/13/25 17:03 Dose: 40 mg Magnesium Hydroxide (Milk Of Magnesia 30 Ml Oral.Susp) 30 ml PO DAILY PRN PRN Reason: Constipation Last Admin: 04/11/25 13:51 Dose: 30 ml Melatonin (Melatonin 3 Mg Tablet) 3 mg PO BEDTIME RIKKI Last Admin: 04/13/25 22:00 Dose: Not Given Nicotine (Nicotine 21 Mg Patch.Td24) 21 mg TRANSDERMA DAILY PRN PRN Reason: smoking cessation Nicotine Polacrilex (Nicotine Polacrilex 2 Mg Gum) 4 mg BUCCAL Q2H PRN PRN Reason: Nicotine Cravings Olanzapine (Olanzapine 5 Mg Tablet) 5 mg PO TID PRN PRN Reason: agitation Trazodone HCl (Trazodone Hcl 50 Mg Tablet) 50 mg PO BEDTIME MRX1 PRN PRN Reason: Insomnia Allergies Allergies Allergy/AdvReac Type Severity Reaction Status Date / Time peanut Allergy Hives Verified 04/09/25 11:48 Assessment & Plan Assessment & Plan (1) Schizophrenia: Qualifiers: Schizophrenia type: unspecified Qualified Code(s): F20.9 - Schizophrenia, unspecified Status: Acute Code(s): F20.9 - Schizophrenia, unspecified Plan HPI: patient is a 25 years old single Occitan-speaking male with history of schizophrenic who self presented to the ED reporting feeling unsafe and homelessness. Patient reports he has been seeing and hearing his uncle and unable to identify if this is a hallucinations or not. He also will believe his mom is in a gang. Formulation/clinical reasoning: Feeling unsafe in community, being homeless which increased depression and anxiety, no family support, no support system, self for the psychiatry. History of schizophrenic, potential not compliant with medication, or at risk of not able to access to care. Increased marijuana use, presented with paranoid thoughts. Given the above information, patient could be benefit to admitted to the restrictive environment, monitor for safety, monitor for mental status, monitor psychosis, provide therapeutic environment where patient can learn coping skills for his depression and anxiety. Possible refer patient back to outpatient psychiatry services, plus therapist for aftercare. Hospital course: 04/10/25: Continue with home medication. Educate patient on Latuda which should be taken with food. 04/11: Continue current treatment regimen. intake worker to assist with housing placement. 04/12: Continue current treatment regimen. 04/14 Patient remains pacing by himself throughout the day; guarded but overall cooperative on approach. He says that he is good when asked and says that AH has resolved since getting on Latuda. Janitor And Cleaner discussed further increasing dose (as patient remains internally preoccupied and with some disorganized behavior, i.e. pacing nonstop, not interacting with peers) however patient declines, does not want increase at all because he feels it was enough to take the voices away. Asks about discharge and will discuss with primary team provider when she return. -continue current treatment regimen Plan Patient on 15 minute checks for safety. Admitted to M3. CV. Diagnosis if necessary. Work with treatment team to do collateral and possible longterm for aftercare. Refer patient back to outpatient psychiatric services. He is on waiting list for therapist. Patient educated on: diagnosis and medication risk/benefits Informed Consent: understands and further education needed Reason for continued inpatient stay Substantial Risk for: med/psych decompensation Time Spent With Patient Time: Total time managing care of this patient today ____ minutes.
[2025-04-14 20:00] VITALS: RESP 18
[2025-04-15 07:59] VITALS: BP 127/79; PULSE 76; RESP 18; TEMP 36.8; O2SAT 99
--- NOTE | 2025-04-15 11:20 | HO.PSYCHPN ---
Subjective Subjective Date of Service: 04/15/25 Reason For Visit: decompensated Interim History: met with patient; discussed with team much more expressively paranoid today. refused Latuda last night; told nurse she's lying about chicken dinner....and therefore would not take Latuda -stands in front of nursing station...not saying anything, will slap counter...then if asked says yes he wants water... -oddly picking different foods, saying ill take this since it's sealed To television script writer pt saying his life is in danger, life is at risk due to kitchen food and wrong orders and thinks food is unsafe and perhaps mis-ordered on purpose. Pt asks for video to be watched of food prepares and if he can be transferred to a different hospital Discussed meds and since Latuda is supposed to be take with food (even though television script writer said he could take it w/out) he won't take it but agrees to reisperdal which he says he's been on before Mental Status Exam Mental Status Exam Narrative: Pt is alert and oriented; behavior is guarded, paranoid, pacing the halls much of the day by himself, not interacting much with others; patient is not in distress; dressed in casual attire with unkempt hair but adequate hygiene; mood is described as anxious-upset and affect constricted; eye contact appropriate; Speech normal rate, volume and prosody and not pressured; some psychomotor agitation present; thought process is goal directed, though concrete; Thought content is paranoid ideations, unsafe food; denies any SI/HI. Denies AVH (but internally preoccupied). Patients insight and judgment Diagnostics Vital Signs (24Hr): Vital Signs - 24 hr 04/14/25 20:00 04/15/25 07:59 Temperature 98.2 F Pulse Rate 76 Respiratory Rate 18 18 Blood Pressure 127/79 Pulse Oximetry 99 Oxygen Delivery Method Room Air BMI result Body Mass Index 30.0 Labs 04/09/25 11:54 04/11/25 09:09 Medications Medications Current Medications Acetaminophen (Acetaminophen 325 Mg Tablet) 650 mg PO Q6H PRN PRN Reason: Headache/Pain, Scale 1-10 Al Hydroxide/Mg Hydroxide (Magnesium Hydrox/Alum Hydrox 30 Ml Oral.Susp) 30 ml PO Q6H PRN PRN Reason: Heartburn/Nausea Hydroxyzine HCl (Hydroxyzine Hcl 25 Mg Tablet) 25 mg PO Q6H PRN PRN Reason: mild anxiety Lurasidone HCl (Lurasidone Hcl 40 Mg Tablet) 40 mg PO DAILY@1700 [facility] Last Admin: 04/14/25 17:52 Dose: Not Given Magnesium Hydroxide (Milk Of Magnesia 30 Ml Oral.Susp) 30 ml PO DAILY PRN PRN Reason: Constipation Last Admin: 04/11/25 13:51 Dose: 30 ml Melatonin (Melatonin 3 Mg Tablet) 3 mg PO BEDTIME [facility] Last Admin: 04/14/25 22:28 Dose: Not Given Nicotine (Nicotine 21 Mg Patch.Td24) 21 mg TRANSDERMA DAILY PRN PRN Reason: smoking cessation Nicotine Polacrilex (Nicotine Polacrilex 2 Mg Gum) 4 mg BUCCAL Q2H PRN PRN Reason: Nicotine Cravings Olanzapine (Olanzapine 5 Mg Tablet) 5 mg PO TID PRN PRN Reason: agitation Trazodone HCl (Trazodone Hcl 50 Mg Tablet) 50 mg PO BEDTIME MRX1 PRN PRN Reason: Insomnia Allergies Allergies Allergy/AdvReac Type Severity Reaction Status Date / Time peanut Allergy Hives Verified 04/09/25 11:48 Assessment & Plan Assessment & Plan (1) Schizophrenia: Qualifiers: Schizophrenia type: unspecified Qualified Code(s): F20.9 - Schizophrenia, unspecified Status: Acute Code(s): F20.9 - Schizophrenia, unspecified Plan HPI: patient is a 25 years old single Dive[place]-speaking male with history of schizophrenic who self presented to the ED reporting feeling unsafe and homelessness. Patient reports he has been seeing and hearing his uncle and unable to identify if this is a hallucinations or not. He also will believe his mom is in a gang. Formulation/clinical reasoning: Feeling unsafe in community, being homeless which increased depression and anxiety, no family support, no support system, self for the psychiatry. History of schizophrenic, potential not compliant with medication, or at risk of not able to access to care. Increased marijuana use, presented with paranoid thoughts. Given the above information, patient could be benefit to admitted to the restrictive environment, monitor for safety, monitor for mental status, monitor psychosis, provide therapeutic environment where patient can learn coping skills for his depression and anxiety. Possible refer patient back to outpatient psychiatry services, plus therapist for aftercare. Hospital course: 04/10/25: Continue with home medication. Educate patient on Latuda which should be taken with food. 04/11: Continue current treatment regimen. forensic social worker to assist with housing placement. 04/12: Continue current treatment regimen. 04/14 Patient remains pacing by himself throughout the day; guarded but overall cooperative on approach. He says that he is good when asked and says that AH has resolved since getting on Latuda. Home Energy Consultant Supervisor discussed further increasing dose (as patient remains internally preoccupied and with some disorganized behavior, i.e. pacing nonstop, not interacting with peers) however patient declines, does not want increase at all because he feels it was enough to take the voices away. Asks about discharge and will discuss with primary team provider when she return. -continue current treatment regimen 04/15 much more expressively paranoid today. refused Latuda last night; told nurse she's lying about chicken dinner....and therefore would not take Latuda -stands in front of nursing station...not saying anything, will slap counter...then if asked says yes he wants water... -oddly picking different foods, saying ill take this since it's sealed To television script writer pt saying his life is in danger, life is at risk due to kitchen food and wrong orders and thinks food is unsafe and perhaps mis-ordered on purpose. Pt asks for video to be watched of food prepares and if he can be transferred to a different hospital Discussed meds and since Latuda is supposed to be take with food (even though television script writer said he could take it w/out) he won't take it but agrees to reisperdal which he says he's been on before Plan Patient on 15 minute checks for safety. Admitted to M3. CV. HOLD Latuda START Risperdal 2mg bid (pt psychotic and has tolerated risperdal before) Diagnosis if necessary. Work with treatment team to do collateral and possible [facility] for aftercare. Refer patient back to outpatient psychiatric services. He is on waiting list for therapist. Patient educated on: diagnosis and medication risk/benefits Informed Consent: understands, does not understand and further education needed Reason for continued inpatient stay Substantial Risk for: inability to function Time Spent With Patient Time: Total time managing care of this patient today ____ minutes.
[2025-04-15] MEDS: Milk of Magnesia 30 ML ORAL.SUSP PO (14:30)
[2025-04-15 20:00] VITALS: BP 107/55; PULSE 80; TEMP 37.1; O2SAT 99
[2025-04-16 07:58] VITALS: BP 118/61; PULSE 65; RESP 18; TEMP 36.8; O2SAT 100
--- NOTE | 2025-04-16 10:01 | P.PNPSI_ITS ---
Subjective Subjective Date of Service: 04/16/25 Reason For Visit: decompensated Subjective Notes: Conditional Voluntary Healthcare Proxy: No Guardianship: No Medical Problems Affecting Mental Status: No Interim History: Pt approachable today. Latuda changed to Risperdal over the weekend. I think it will be better-I feel a lot of stress to eat something before I take the other med and sometimes I don't want to eat anything. This med is better for me . Discussed MURRAY if Risperdal continues to be tolerated-pt to consider. Today, visable on the unit, attentive to unit activity and process, responding to peers, team, with some improvement. Medication Compliance: Yes Side effects from medications: No Attending Groups: No Review of Systems Acute medical concerns: No Medical Review of Systems: unchanged Review of Systems Review of Systems no Mental Status Exam Mental Status Exam Patient Appearance: Appropriate Patient Orientation: Person, Place and Situation Level of Consciousness: Alert Patient Behavior: Guarded, Talkative and Good Eye Contact Mood Description: Constricted Affect Description: Constricted Patient Cognition Impaired: No Ability to Follow Directions: Good Speech Pattern: Spontaneous Speech Memory Description: Episodic Impaired Hallucinations: None (denies) Delusions: Present Thought Content: positive for [place] and positive for Circumstantial Judgement: Fair Diagnostics Vital Signs (24Hr): Vital Signs - 24 hr 04/15/25 20:00 04/16/25 07:58 Temperature 98.7 F 98.2 F Pulse Rate 80 65 Respiratory Rate 18 Blood Pressure 107/55 L 118/61 Pulse Oximetry 99 100 Oxygen Delivery Method Room Air Room Air BMI result Body Mass Index 30.0 Labs 04/09/25 11:54 04/11/25 09:09 Medications Medications Current Medications Acetaminophen (Acetaminophen 325 Mg Tablet) 650 mg PO Q6H PRN PRN Reason: Headache/Pain, Scale 1-10 Al Hydroxide/Mg Hydroxide (Magnesium Hydrox/Alum Hydrox 30 Ml Oral.Susp) 30 ml PO Q6H PRN PRN Reason: Heartburn/Nausea Hydroxyzine HCl (Hydroxyzine Hcl 25 Mg Tablet) 25 mg PO Q6H PRN PRN Reason: mild anxiety Lurasidone HCl (Lurasidone Hcl 40 Mg Tablet) 40 mg PO DAILY@1700 RIKKI On Hold: 04/15/25 11:49 Last Admin: 04/14/25 17:52 Dose: Not Given Magnesium Hydroxide (Milk Of Magnesia 30 Ml Oral.Susp) 30 ml PO DAILY PRN PRN Reason: Constipation Last Admin: 04/15/25 14:30 Dose: 30 ml Melatonin (Melatonin 3 Mg Tablet) 3 mg PO BEDTIME [facility] Last Admin: 04/15/25 21:23 Dose: Not Given Nicotine (Nicotine 21 Mg Patch.Td24) 21 mg TRANSDERMA DAILY PRN PRN Reason: smoking cessation Nicotine Polacrilex (Nicotine Polacrilex 2 Mg Gum) 4 mg BUCCAL Q2H PRN PRN Reason: Nicotine Cravings Olanzapine (Olanzapine 5 Mg Tablet) 5 mg PO TID PRN PRN Reason: agitation Risperidone (Risperidone 2 Mg Tablet) 2 mg PO BEDTIME RIKKI Last Admin: 04/15/25 21:22 Dose: 2 mg Risperidone (Risperidone 2 Mg Tablet) 2 mg PO DAILY [facility] Last Admin: 04/16/25 08:34 Dose: 2 mg Trazodone HCl (Trazodone Hcl 50 Mg Tablet) 50 mg PO BEDTIME MRX1 PRN PRN Reason: Insomnia Allergies Allergies Allergy/AdvReac Type Severity Reaction Status Date / Time peanut Allergy Hives Verified 04/09/25 11:48 Assessment & Plan Assessment & Plan (1) Schizophrenia: Qualifiers: Schizophrenia type: unspecified Qualified Code(s): F20.9 - Schizophrenia, unspecified Status: Acute Code(s): F20.9 - Schizophrenia, unspecified Plan HPI: patient is a 25 years old single Citizen [place]-speaking male with history of schizophrenic who self presented to the ED reporting feeling unsafe and homelessness. Patient reports he has been seeing and hearing his uncle and unable to identify if this is a hallucinations or not. He also will believe his mom is in a gang. Formulation/clinical reasoning: Feeling unsafe in community, being homeless which increased depression and anxiety, no family support, no support system, self for the psychiatry. History of schizophrenic, potential not compliant with medication, or at risk of not able to access to care. Increased marijuana use, presented with paranoid thoughts. Given the above information, patient could be benefit to admitted to the restrictive environment, monitor for safety, monitor for mental status, monitor psychosis, provide therapeutic environment where patient can learn coping skills for his depression and anxiety. Possible refer patient back to outpatient psychiatry services, plus therapist for aftercare. Hospital course: 04/10/25: Continue with home medication. Educate patient on Latuda which should be taken with food. 04/11: Continue current treatment regimen. dairy machine operator farmworker to assist with housing placement. 04/12: Continue current treatment regimen. 04/14 Patient remains pacing by himself throughout the day; guarded but overall cooperative on approach. He says that he is good when asked and says that AH has resolved since getting on Latuda. Packaging Coordinator discussed further increasing dose (as patient remains internally preoccupied and with some disorganized behavior, i.e. pacing nonstop, not interacting with peers) however patient declines, does not want increase at all because he feels it was enough to take the voices away. Asks about discharge and will discuss with primary team provider when she return. -continue current treatment regimen 04/15 much more expressively paranoid today. refused Latuda last night; told nurse she's lying about chicken dinner....and therefore would not take Latuda -stands in front of nursing station...not saying anything, will slap counter...then if asked says yes he wants water... -oddly picking different foods, saying ill take this since it's sealed To senior copywriter pt saying his life is in danger, life is at risk due to kitchen food and wrong orders and thinks food is unsafe and perhaps mis-ordered on purpose. Pt asks for video to be watched of food prepares and if he can be transferred to a different hospital Discussed meds and since Latuda is supposed to be take with food (even though senior copywriter said he could take it w/out) he won't take it but agrees to reisperdal which he says he's been on before 04/16: Continue Risperdal Plan Patient on 15 minute checks for safety. Admitted to M3. CV. HOLD Latuda START Risperdal 2mg bid (pt psychotic and has tolerated risperdal before) Diagnosis if necessary. Work with treatment team to do collateral and possible detention for aftercare. Refer patient back to outpatient psychiatric services. He is on waiting list for therapist. Reason for continued inpatient stay Substantial Risk for: rapid decompensation Time Spent With Patient Time: Total time managing care of this patient today ____ minutes.
[2025-04-16 19:38] VITALS: BP 136/83; PULSE 112; RESP 14; TEMP 36.6; O2SAT 98
[2025-04-17 08:00] VITALS: BP 149/76; PULSE 65; RESP 16; TEMP 36.9; O2SAT 99
--- NOTE | 2025-04-17 13:12 | P.PNPSI_ITS ---
Subjective Subjective Date of Service: 04/17/25 Reason For Visit: decompensated Subjective Notes: Conditional Voluntary and 3 Day Healthcare Proxy: No Guardianship: No Medical Problems Affecting Mental Status: No Interim History: I feel good, I want to leave. TDN submitted. Reports he does not have a home to return to. Team is working on fdc referrals. Declined team BAKARI for [facility] contact throughout this admission. Denies SI,HI, AH,VH Discussed difficulties with not getting what he ordered on his tray- discussed with pt and team with a positive outcome and plan for pt to approach team as needed if changes need to be made. Medication Compliance: Yes Side effects from medications: No Attending Groups: No Review of Systems Acute medical concerns: No Review of Systems Review of Systems Denies Mental Status Exam Mental Status Exam Patient Appearance: Appropriate Patient Orientation: Person, Place and Situation Level of Consciousness: Alert Patient Behavior: Guarded, Talkative and Good Eye Contact Mood Description: Constricted Affect Description: Constricted Patient Cognition Impaired: No Ability to Follow Directions: Good Speech Pattern: Spontaneous Speech Memory Description: Episodic Impaired Hallucinations: None (denies) Delusions: Not Present Thought Content: positive for [place] and positive for Circumstantial Judgement: Fair Diagnostics Vital Signs (24Hr): Vital Signs - 24 hr 04/16/25 19:38 04/17/25 08:00 Temperature 97.8 F 98.4 F Pulse Rate 112 H 65 Respiratory Rate 14 16 Blood Pressure 136/83 149/76 H Pulse Oximetry 98 99 Oxygen Delivery Method Room Air Room Air BMI result Body Mass Index 30.0 Labs 04/09/25 11:54 04/11/25 09:09 Medications Medications Current Medications Acetaminophen (Acetaminophen 325 Mg Tablet) 650 mg PO Q6H PRN PRN Reason: Headache/Pain, Scale 1-10 Al Hydroxide/Mg Hydroxide (Magnesium Hydrox/Alum Hydrox 30 Ml Oral.Susp) 30 ml PO Q6H PRN PRN Reason: Heartburn/Nausea Hydroxyzine HCl (Hydroxyzine Hcl 25 Mg Tablet) 25 mg PO Q6H PRN PRN Reason: mild anxiety Lurasidone HCl (Lurasidone Hcl 40 Mg Tablet) 40 mg PO DAILY@1700 RIKKI On Hold: 04/15/25 11:49 Last Admin: 04/14/25 17:52 Dose: Not Given Magnesium Hydroxide (Milk Of Magnesia 30 Ml Oral.Susp) 30 ml PO DAILY PRN PRN Reason: Constipation Last Admin: 04/15/25 14:30 Dose: 30 ml Melatonin (Melatonin 3 Mg Tablet) 3 mg PO BEDTIME RIKKI Last Admin: 04/16/25 21:14 Dose: Not Given Nicotine (Nicotine 21 Mg Patch.Td24) 21 mg TRANSDERMA DAILY PRN PRN Reason: smoking cessation Nicotine Polacrilex (Nicotine Polacrilex 2 Mg Gum) 4 mg BUCCAL Q2H PRN PRN Reason: Nicotine Cravings Olanzapine (Olanzapine 5 Mg Tablet) 5 mg PO TID PRN PRN Reason: agitation Risperidone (Risperidone 2 Mg Tablet) 2 mg PO BEDTIME RIKKI Last Admin: 04/16/25 21:13 Dose: 2 mg Risperidone (Risperidone 2 Mg Tablet) 2 mg PO DAILY [facility] Last Admin: 04/17/25 08:25 Dose: 2 mg Trazodone HCl (Trazodone Hcl 50 Mg Tablet) 50 mg PO BEDTIME MRX1 PRN PRN Reason: Insomnia Allergies Allergies Allergy/AdvReac Type Severity Reaction Status Date / Time peanut Allergy Hives Verified 04/09/25 11:48 Assessment & Plan Assessment & Plan (1) Schizophrenia: Qualifiers: Schizophrenia type: unspecified Qualified Code(s): F20.9 - Schizophrenia, unspecified Status: Acute Code(s): F20.9 - Schizophrenia, unspecified Plan HPI: patient is a 25 years old single [place]-speaking male with history of schizophrenic who self presented to the ED reporting feeling unsafe and homelessness. Patient reports he has been seeing and hearing his uncle and unable to identify if this is a hallucinations or not. He also will believe his mom is in a gang. Formulation/clinical reasoning: Feeling unsafe in community, being homeless which increased depression and anxiety, no family support, no support system, self for the psychiatry. History of schizophrenic, potential not compliant with medication, or at risk of not able to access to care. Increased marijuana use, presented with paranoid thoughts. Given the above information, patient could be benefit to admitted to the restrictive environment, monitor for safety, monitor for mental status, monitor psychosis, provide therapeutic environment where patient can learn coping skills for his depression and anxiety. Possible refer patient back to outpatient psychiatry services, plus therapist for aftercare. Hospital course: 04/10/25: Continue with home medication. Educate patient on Latuda which should be taken with food. 04/11: Continue current treatment regimen. telecommunications linesworker to assist with housing placement. 04/12: Continue current treatment regimen. 04/14 Patient remains pacing by himself throughout the day; guarded but overall cooperative on approach. He says that he is good when asked and says that AH has resolved since getting on Latuda. Construction Technician discussed further increasing dose (as patient remains internally preoccupied and with some disorganized behavior, i.e. pacing nonstop, not interacting with peers) however patient declines, does not want increase at all because he feels it was enough to take the voices away. Asks about discharge and will discuss with primary team provider when she return. -continue current treatment regimen 04/15 much more expressively paranoid today. refused Latuda last night; told nurse she's lying about chicken dinner....and therefore would not take Latuda -stands in front of nursing station...not saying anything, will slap counter...then if asked says yes he wants water... -oddly picking different foods, saying ill take this since it's sealed To telegraphic typewriter repairer pt saying his life is in danger, life is at risk due to kitchen food and wrong orders and thinks food is unsafe and perhaps mis-ordered on purpose. Pt asks for video to be watched of food prepares and if he can be transferred to a different hospital Discussed meds and since Latuda is supposed to be take with food (even though telegraphic typewriter repairer said he could take it w/out) he won't take it but agrees to reisperdal which he says he's been on before 04/17: Continue tx- TDN to 04/20. Plan Patient on 15 minute checks for safety. Admitted to M3. CV. HOLD Latuda START Risperdal 2mg bid (pt psychotic and has tolerated risperdal before) Diagnosis if necessary. Work with treatment team to do collateral and possible fdc for aftercare. Refer patient back to outpatient psychiatric services. He is on waiting list for therapist. Reason for continued inpatient stay Substantial Risk for: rapid decompensation Time Spent With Patient Time: Total time managing care of this patient today ____ minutes.
[2025-04-17] MEDS: Magnesium Hydrox/Alum Hydrox 30 ML ORAL.SUSP PO (19:46)
[2025-04-17 20:00] VITALS: BP 122/78; PULSE 90; RESP 16; TEMP 36.6; O2SAT 98
[2025-04-17] MEDS: Milk of Magnesia 30 ML ORAL.SUSP PO (21:27)
[2025-04-18 08:17] VITALS: BP 117/67; PULSE 93; RESP 16; TEMP 36.1; O2SAT 99
--- NOTE | 2025-04-18 10:02 | HO.PSYCHPN ---
Subjective Subjective Date of Service: 04/18/25 Reason For Visit: decompensated Subjective Notes: Conditional Voluntary and 3 Day Healthcare Proxy: No Guardianship: No Medical Problems Affecting Mental Status: No Interim History: TDN to 04/20. Pt wanting to leave early. Prison will [facility] back if he takes MURRAY x 2. Pt agreed. A Sustenna ordered, then changed his mind and declined. Medication Compliance: Intermittent Side effects from medications: No Attending Groups: Intermittent Review of Systems Acute medical concerns: No Review of Systems Review of Systems Denies Mental Status Exam Mental Status Exam Patient Appearance: Appropriate Patient Orientation: Person, Place and Situation Level of Consciousness: Alert Patient Behavior: Guarded, Talkative and Good Eye Contact Mood Description: Constricted Affect Description: Constricted Patient Cognition Impaired: No Ability to Follow Directions: Good Speech Pattern: Spontaneous Speech Memory Description: Episodic Impaired Hallucinations: None (denies) Delusions: Not Present Thought Content: positive for [place] and positive for Circumstantial Judgement: Fair Diagnostics Vital Signs (24Hr): Vital Signs - 24 hr 04/17/25 20:00 04/18/25 08:17 Temperature 97.9 F 96.9 F Pulse Rate 90 93 Respiratory Rate 16 16 Blood Pressure 122/78 117/67 Pulse Oximetry 98 99 Oxygen Delivery Method Room Air Room Air BMI result Body Mass Index 30.0 Labs 04/09/25 11:54 04/11/25 09:09 Medications Medications Current Medications Acetaminophen (Acetaminophen 325 Mg Tablet) 650 mg PO Q6H PRN PRN Reason: Headache/Pain, Scale 1-10 Al Hydroxide/Mg Hydroxide (Magnesium Hydrox/Alum Hydrox 30 Ml Oral.Susp) 30 ml PO Q6H PRN PRN Reason: Heartburn/Nausea Last Admin: 04/17/25 19:46 Dose: 30 ml Hydroxyzine HCl (Hydroxyzine Hcl 25 Mg Tablet) 25 mg PO Q6H PRN PRN Reason: mild anxiety Magnesium Hydroxide (Milk Of Magnesia 30 Ml Oral.Susp) 30 ml PO DAILY PRN PRN Reason: Constipation Last Admin: 04/17/25 21:27 Dose: 30 ml Melatonin (Melatonin 3 Mg Tablet) 3 mg PO BEDTIME RIKKI Last Admin: 04/17/25 21:24 Dose: Not Given Nicotine (Nicotine 21 Mg Patch.Td24) 21 mg TRANSDERMA DAILY PRN PRN Reason: smoking cessation Nicotine Polacrilex (Nicotine Polacrilex 2 Mg Gum) 4 mg BUCCAL Q2H PRN PRN Reason: Nicotine Cravings Olanzapine (Olanzapine 5 Mg Tablet) 5 mg PO TID PRN PRN Reason: agitation Risperidone (Risperidone 2 Mg Tablet) 2 mg PO BEDTIME RIKKI Last Admin: 04/17/25 21:21 Dose: 2 mg Trazodone HCl (Trazodone Hcl 50 Mg Tablet) 50 mg PO BEDTIME MRX1 PRN PRN Reason: Insomnia Allergies Allergies Allergy/AdvReac Type Severity Reaction Status Date / Time peanut Allergy Hives Verified 04/09/25 11:48 Assessment & Plan Assessment & Plan (1) Schizophrenia: Qualifiers: Schizophrenia type: unspecified Qualified Code(s): F20.9 - Schizophrenia, unspecified Status: Acute Code(s): F20.9 - Schizophrenia, unspecified Plan HPI: patient is a 25 years old single [place]-speaking male with history of schizophrenic who self presented to the ED reporting feeling unsafe and homelessness. Patient reports he has been seeing and hearing his uncle and unable to identify if this is a hallucinations or not. He also will believe his mom is in a gang. Formulation/clinical reasoning: Feeling unsafe in community, being homeless which increased depression and anxiety, no family support, no support system, self for the psychiatry. History of schizophrenic, potential not compliant with medication, or at risk of not able to access to care. Increased marijuana use, presented with paranoid thoughts. Given the above information, patient could be benefit to admitted to the restrictive environment, monitor for safety, monitor for mental status, monitor psychosis, provide therapeutic environment where patient can learn coping skills for his depression and anxiety. Possible refer patient back to outpatient psychiatry services, plus therapist for aftercare. Hospital course: 04/10/25: Continue with home medication. Educate patient on Latuda which should be taken with food. 04/11: Continue current treatment regimen. insemination worker to assist with housing placement. 04/12: Continue current treatment regimen. 04/14 Patient remains pacing by himself throughout the day; guarded but overall cooperative on approach. He says that he is good when asked and says that AH has resolved since getting on Latuda. Assistant Plant Control Operator discussed further increasing dose (as patient remains internally preoccupied and with some disorganized behavior, i.e. pacing nonstop, not interacting with peers) however patient declines, does not want increase at all because he feels it was enough to take the voices away. Asks about discharge and will discuss with primary team provider when she return. -continue current treatment regimen 04/15 much more expressively paranoid today. refused Latuda last night; told nurse she's lying about chicken dinner....and therefore would not take Latuda -stands in front of nursing station...not saying anything, will slap counter...then if asked says yes he wants water... -oddly picking different foods, saying ill take this since it's sealed To insurance underwriter pt saying his life is in danger, life is at risk due to kitchen food and wrong orders and thinks food is unsafe and perhaps mis-ordered on purpose. Pt asks for video to be watched of food prepares and if he can be transferred to a different hospital Discussed meds and since Latuda is supposed to be take with food (even though insurance underwriter said he could take it w/out) he won't take it but agrees to reisperdal which he says he's been on before 04/18: Declines MURRAY. TDN to 04/20 Plan Patient on 15 minute checks for safety. Admitted to M3. CV. HOLD Latuda START Risperdal 2mg bid (pt psychotic and has tolerated risperdal before) Diagnosis if necessary. Work with treatment team to do collateral and possible prison for aftercare. Refer patient back to outpatient psychiatric services. He is on waiting list for therapist. Reason for continued inpatient stay Substantial Risk for: rapid decompensation Time Spent With Patient Time: Total time managing care of this patient today ____ minutes.
[2025-04-18] MEDS: Milk of Magnesia 30 ML ORAL.SUSP PO (16:56)
[2025-04-18 20:00] VITALS: BP 148/72; PULSE 97; RESP 16; TEMP 36.2; O2SAT 99
[2025-04-19 08:00] VITALS: BP 131/70; PULSE 87; RESP 16; TEMP 36.6; O2SAT 98
--- NOTE | 2025-04-19 12:45 | P.PNPSI_ITS ---
Subjective Subjective Date of Service: 04/19/25 Reason For Visit: decompensated Subjective Notes: Conditional Voluntary and 3 Day Healthcare Proxy: No Guardianship: No Medical Problems Affecting Mental Status: No Interim History: Pt reports feeling ready for discharge. Three day notice to 04/20. Declines Invega Sustenna injection, prefers PO Risperdal. Visable in the milieu, however, continues to keep to himself. He is attentive to the environment, does initiate dialogue with select peers and team. Does approach tw often with appropriate questions and comments Medication Compliance: Yes Side effects from medications: No Attending Groups: No Review of Systems Acute medical concerns: No Review of Systems Review of Systems Denies Mental Status Exam Mental Status Exam Patient Appearance: Appropriate Patient Orientation: Person, Place and Situation Level of Consciousness: Alert Patient Behavior: Guarded, Talkative and Good Eye Contact Mood Description: Constricted Affect Description: Constricted Patient Cognition Impaired: No Ability to Follow Directions: Good Speech Pattern: Spontaneous Speech Memory Description: Episodic Impaired Hallucinations: None (denies) Delusions: Not Present Thought Content: positive for [place] and positive for Circumstantial Judgement: Fair Diagnostics Vital Signs (24Hr): Vital Signs - 24 hr 04/18/25 20:00 04/19/25 08:00 Temperature 97.1 F 97.8 F Pulse Rate 97 87 Respiratory Rate 16 16 Blood Pressure 148/72 H 131/70 Pulse Oximetry 99 98 Oxygen Delivery Method Room Air Room Air BMI result Body Mass Index 30.0 Labs 04/09/25 11:54 04/11/25 09:09 Medications Medications Current Medications Acetaminophen (Acetaminophen 325 Mg Tablet) 650 mg PO Q6H PRN PRN Reason: Headache/Pain, Scale 1-10 Al Hydroxide/Mg Hydroxide (Magnesium Hydrox/Alum Hydrox 30 Ml Oral.Susp) 30 ml PO Q6H PRN PRN Reason: Heartburn/Nausea Last Admin: 04/17/25 19:46 Dose: 30 ml Hydroxyzine HCl (Hydroxyzine Hcl 25 Mg Tablet) 25 mg PO Q6H PRN PRN Reason: mild anxiety Magnesium Hydroxide (Milk Of Magnesia 30 Ml Oral.Susp) 30 ml PO DAILY PRN PRN Reason: Constipation Last Admin: 04/18/25 16:56 Dose: 30 ml Melatonin (Melatonin 3 Mg Tablet) 3 mg PO BEDTIME RIKKI Last Admin: 04/18/25 21:44 Dose: Not Given Nicotine (Nicotine 21 Mg Patch.Td24) 21 mg TRANSDERMA DAILY PRN PRN Reason: smoking cessation Nicotine Polacrilex (Nicotine Polacrilex 2 Mg Gum) 4 mg BUCCAL Q2H PRN PRN Reason: Nicotine Cravings Olanzapine (Olanzapine 5 Mg Tablet) 5 mg PO TID PRN PRN Reason: agitation Risperidone (Risperidone 2 Mg Tablet) 2 mg PO BEDTIME RIKKI Last Admin: 04/18/25 21:44 Dose: 2 mg Trazodone HCl (Trazodone Hcl 50 Mg Tablet) 50 mg PO BEDTIME MRX1 PRN PRN Reason: Insomnia Allergies Allergies Allergy/AdvReac Type Severity Reaction Status Date / Time peanut Allergy Hives Verified 04/09/25 11:48 Assessment & Plan Assessment & Plan (1) Schizophrenia: Qualifiers: Schizophrenia type: unspecified Qualified Code(s): F20.9 - Schizophrenia, unspecified Status: Acute Code(s): F20.9 - Schizophrenia, unspecified Plan HPI: patient is a 25 years old single Haitian-speaking male with history of schizophrenic who self presented to the ED reporting feeling unsafe and homelessness. Patient reports he has been seeing and hearing his uncle and unable to identify if this is a hallucinations or not. He also will believe his mom is in a gang. Formulation/clinical reasoning: Feeling unsafe in community, being homeless which increased depression and anxiety, no family support, no support system, self for the psychiatry. History of schizophrenic, potential not compliant with medication, or at risk of not able to access to care. Increased marijuana use, presented with paranoid thoughts. Given the above information, patient could be benefit to admitted to the restrictive environment, monitor for safety, monitor for mental status, monitor psychosis, provide therapeutic environment where patient can learn coping skills for his depression and anxiety. Possible refer patient back to outpatient psychiatry services, plus therapist for aftercare. Hospital course: 04/10/25: Continue with home medication. Educate patient on Latuda which should be taken with food. 04/11: Continue current treatment regimen. monitor worker to assist with housing placement. 04/12: Continue current treatment regimen. 04/14 Patient remains pacing by himself throughout the day; guarded but overall cooperative on approach. He says that he is good when asked and says that AH has resolved since getting on Latuda. [employer] discussed further increasing dose (as patient remains internally preoccupied and with some disorganized behavior, i.e. pacing nonstop, not interacting with peers) however patient declines, does not want increase at all because he feels it was enough to take the voices away. Asks about discharge and will discuss with primary team provider when she return. -continue current treatment regimen 04/15 much more expressively paranoid today. refused Latuda last night; told nurse she's lying about chicken dinner....and therefore would not take Latuda -stands in front of nursing station...not saying anything, will slap counter...then if asked says yes he wants water... -oddly picking different foods, saying ill take this since it's sealed To check writer pt saying his life is in danger, life is at risk due to kitchen food and wrong orders and thinks food is unsafe and perhaps mis-ordered on purpose. Pt asks for video to be watched of food prepares and if he can be transferred to a different hospital Discussed meds and since Latuda is supposed to be take with food (even though check writer said he could take it w/out) he won't take it but agrees to reisperdal which he says he's been on before 04/18: Declines MURRAY. TDN to 04/20 04/19: DC 04/20 Plan Patient on 15 minute checks for safety. Admitted to [facility]. CV. HOLD Latuda START Risperdal 2mg bid (pt psychotic and has tolerated risperdal before) Diagnosis if necessary. Work with treatment team to do collateral and possible [facility] for aftercare. Refer patient back to outpatient psychiatric services. He is on waiting list for therapist. Reason for continued inpatient stay Substantial Risk for: stable for discharge Time Spent With Patient Time: Total time managing care of this patient today ____ minutes.
[2025-04-19 20:00] VITALS: BP 125/88; PULSE 85; RESP 16; TEMP 36.6; O2SAT 97
[2025-04-20 09:17] VITALS: BP 150/75; PULSE 101; TEMP 36.5; O2SAT 98
--- NOTE | 2025-04-20 10:01 | PM.PSYDC ---
DS: Providers Provider Date of admission: 04/10/25 17:12 Primary care physician: Manjula Medellin DO DS: Diagnosis Discharge Diagnosis (1) Schizophrenia: Status: Acute DS: Medications Discharge Medications Home Medications: Previous Rx's ?Medication ?Instructions ?Recorded risperidone 2 mg tablet 2 mg PO BEDTIME #30 tabs 04/19/25 DS: Summary Time Spent with Patient Time attestation: Total time managing care of this patient today ____ minutes. Discharge Plan Discharge Anticipated Discharge Date/Time: 04/20/25 12:00 Patient Disposition: Xfer Other Discharge Diagnosis: Schizophrenia Referrals: [facility]: Betzy Ramirez (psychiatry) [Other] - 05/24/25 11:00 am Referral Note: Hospital discharge appointment Appointment for psychiatric medication management. Appointment is by tele-health. [facility]: Katarzyna Pruitt (therapy) [Other] - 04/27/25 10:00 am Referral Note: Hospital discharge appointment Appointment in person at [facility]. [facility]) [Other] - 1 Week Referral Note: [facility] [Other] - 1 Week Referral Note: [facility] Manjula Medellin DO [Primary Care Provider, Pediatrics] - 1 Week Discharge Medications: New risperidone 2 mg Tablet 2 mg PO BEDTIME Qty: 30 0RF Discontinued melatonin 3 mg tablet 3 mg PO BEDTIME lurasidone [Latuda] 40 mg tablet 40 mg PO DAILY@1700 Discharge Orders: Discharge Order (Routine); Ordered 04/20/25 Ordered By: Doris Peñaloza Diet: Advance to usual diet Activity on Discharge: As tolerated Stand Alone Forms: Patient Portal Discharge page, Community Support Print Language: Syriac Care Plan Goals: Mood and Behavioral Stabilization Health Concerns: Mood and Behavioral Stabilization Plan of Treatment: Take medications as directed Attend appointments to continue your treatment Assessment: Discharge on a three day notice of intent Denies SI,HI,AH,VH. No sx of acute henrietta or psychosis
== END 2025-04-20 11:01 | disposition other institution (70) | DRG 885 ==
LOC: HO.ED 17:06 → HO.PM5 04-10 17:23
PROVIDERS: Registered Nurse Emergency; Admitting Provider Psychiatry & Neurology Psychiatry; Emergency Provider Emergency Medicine; PCP Pediatrics; Visit Provider Clinical Nurse Specialist Psychiatric/Mental Health, Adult
DX: F20.9 Schizophrenia, unspecified (principal); Z59.02 Unsheltered homelessness; Z20.822 Contact with and (suspected) exposure to COVID-19; Z91.148 Patient's other noncompliance with medication regimen for other reason; Z79.899 Other long term (current) drug therapy
CPT/HCPCS: 36415; 80053; 80061; 80307; 81001; 82248; 83036; 85025; 87637; 93005; 99285; S9485

== ENCOUNTER → 2025-04-10 09:41 | Outpatient (BNV) | payer MEDICARE, MEDICAID, SELFPAY | PROVIDERS: Emergency Provider Emergency Medicine; PCP Pediatrics; Visit Provider Internal Medicine Cardiovascular Disease | DX: R00.1 Bradycardia, unspecified (principal) | CPT/HCPCS: 93010 ==

== ENCOUNTER → 2025-04-10 17:12 | Outpatient (BNV) | payer MEDICARE, MEDICAID, SELFPAY | PROVIDERS: Admitting Provider Psychiatry & Neurology Psychiatry; Emergency Provider Emergency Medicine; PCP Pediatrics; Visit Provider Nurse Practitioner Psychiatric/Mental Health | DX: F20.9 Schizophrenia, unspecified (principal) | CPT/HCPCS: 90792; 99231; 99232 ==

== ENCOUNTER 2025-05-08 11:43 | Inpatient (IN) | payer MEDICARE, MEDICAID, SELFPAY ==
[2025-05-08 11:57] VITALS: BP 114/61; PULSE 84; RESP 18; TEMP 36.7; O2SAT 97; BMI 28.1
--- NOTE | 2025-05-08 12:00 | ED.PSYCH ---
HPI - Psych General Chief Complaint: Psychiatric Symptoms Stated Complaint: Crisis Time Seen by Provider: 05/08/25 12:22 Source: patient, RN notes reviewed and old records reviewed Mode of arrival: ambulatory History of Present Illness ED Provider: Kiana STRINGER Narrative: Patient is a 25-year-old male with history of schizophrenia presenting to the emergency department with complaint of auditory hallucinations which he describes as mumbling. He denies command auditory hallucinations to hurt or kill himself. He denies suicidal or homicidal ideation. Denies visual hallucinations. Reports increased anxiety and depression recently. States he has been taking his medications as prescribed. Requesting to speak with the care team. Denies any current physical complaints. MD complaint: feels depressed and hallucinations Related Data Home Medications ?Medication ?Instructions ?Recorded ?Confirmed hydroxyzine pamoate 25 mg capsule 25 mg PO Q6H PRN anxiety 05/08/25 05/08/25 risperidone 3 mg tablet 6 mg PO BEDTIME 05/08/25 05/08/25 Allergies Allergy/AdvReac Type Severity Reaction Status Date / Time peanut Allergy Hives Verified 05/08/25 12:02 seafood Allergy Unknown Verified 05/08/25 12:02 shellfish derived (shellfish) Allergy Unknown Verified 05/08/25 12:02 Review of Systems Review of Systems: As per HPI Yes all other systems are reviewed and are negative Constitutional: Constitutional: Reports as per HPI PMF Social History Social History Household Members: None Housing: Homeless Do you presently have visiting nurse or other home services: No Patient Tobacco Use Status: Never used Tobacco Smoked in Last 30 Days: No Substance Use Type: Marijuana Advance Directives: No Advance Directives Information Provided: Yes service: No Sexual orientation: Decline to Answer Physical Exam Vital Signs: Vital Signs: Last Vital Signs Temp 98.2 F 05/09/25 02:53 Pulse 58 05/09/25 02:53 Resp 16 05/09/25 02:53 BP 118/53 L 05/09/25 02:53 Pulse Ox 100 05/09/25 02:53 O2 Del Method Room Air 05/09/25 02:53 BMI result Body Mass Index 28.1 Vital signs have been reviewed and appear to be correct. Blood pressure normal. Heart rate normal. Respiratory rate normal. Temperature normal. Oxygen saturation normal. Const: General: cooperative, healthy appearing and no acute distress Orientation/consciousness: oriented to person, oriented to place, oriented to time and patient oriented x3 Limitations: no limitations HEENT: Head: Yes normocephalic and Yes atraumatic Ears: external ears normal General nose exam: Normal external nose present Face and sinus: Yes face symmetric Mouth: oropharynx normal and moist mucous membranes Throat: Yes uvula midline Eyes: Pupils: Equal, round and reactive pupils present Neck: Neck: Yes normal visual inspection and Yes supple Resp: Effort & Inspection: normal respiratory effort and able to speak in complete sentences Auscultation: clear to auscultation bilaterally Cardio: Rate: regular rate Rhythm: regular rhythm Heart sounds: S1 normal heart sound present and S2 normal heart sound present GI: Palpation (GI): Soft to palpation and nontender Auscultation: normoactive bowel sounds : General: Yes no CVA tenderness Back/Spine/Pelvis: Back: no CVA tenderness Skin: General skin exam: elasticity normal and turgor normal Neuro: General: oriented to person, oriented to place, oriented to time, patient oriented x3, moves all extremities, no focal motor deficits and CN's II-XI intact bilaterally Cranial nerves: Yes Equal, round and reactive pupils present Cognition (Neuro): normal cognition Extrem: General: Yes full ROM, Yes no pedal edema and Yes no calf tenderness Psych: Appearance: grossly normal Mental Status: mental status grossly normal Speech and movement: Slowed speech present (Psych) Affect: Blunted affect present Attitude: cooperative Thought process: Normal thought process present Thought content: suicidality, no homicidality, Hallucination(s) present auditory; not visual and not tactile and Depressive thoughts present Insight: Limited insight present (Psych) Judgement: Limited judgement present (Psych) Course Course Course Narrative: This is an RME: Additional HPI, ROS, PE not included below will be deferred to primary provider. RME assessment and note performed by: Abena Pace PA-C 25-year-old male with history of schizophrenia, recent homelessness who presents to the ER with complaints of auditory hallucinations. Pt was recently admitted on 04/10-04/20. Flat affect. Endorsing marijuana use, no other drug or etoh use. Reports hx of auditory hallucinations over the last week. No SI or HI. He has been compliant Plan: labs. ua, crisis Reevaluation(s) Reevaluation #1: Time: 06:20 Date: 05/09/25 Provider: Giuliano Morgan MD Patient in physician observation for psychiatric evaluation.? No acute events reported overnight. No current complaints. VS stable.? Patient is in bed search status/pending CARE team evaluation. Will continue to monitor. Reevaluation #2: 05/09/2025 11:56 seen by crisis again the patient will be admitted to the psych unit this will end the ED observation status Time: 11:57 Medical Decision Making Medical Decision Making [facility] Narrative: Patient is a 25-year-old male with history of schizophrenia presenting to the emergency department with complaint of auditory hallucinations which he describes as mumbling. On exam patient is awake, A+Ox3, VS WNL, afebrile, normal neurological exam without focal deficits, physical exam findings as above. Given reported symptoms and physical exam findings, initial differential includes but is not limited to schizophrenia, depression, anxiety. Will plan for medical clearance then CARE team evaluation. Labs unremarkable. Urinalysis is without evidence of infection. Urine drug screen positive for cannabis only. Will medically clear patient at this time and place on physician observation for evaluation by the care team. Differential Diagnosis Differential Diagnoses: The differential diagnosis associated with the presentation includes as per [facility] Admission/Observation Consideration of admission/observation: Escalation of care including admission/observation considered Patient would have been admitted to the hospital had their clinical presentation warranted hospital admission. Consult Healthcare Provider Management of the patient was discussed with: Behavioral Health Provider Lab Data [facility] Lab Attestation statement: I reviewed the patient's lab results. as per [facility] 05/08/25 12:40 05/08/25 12:40 Labs: Lab Results 05/08/25 05/08/25 Range/Units 12:32 12:40 WBC 3.8 L (4.8-10.8) X10*3/uL RBC 4.39 L (4.60-5.80) X10*6/uL Hgb 13.6 L (14.0-18.0) g/dl Hct 39.9 L (42.0-52.0) % MCV 90.9 (80.0-98.0) fL MCH 31.0 (27.0-33.0) pg MCHC 34.1 (31.0-36.0) g/dl RDW 13.6 (11.0-16.0) % Plt Count 298 D (160-400) X10*3/uL MPV 10.1 (9.4-12.4) fL Immature Gran % (Auto) 0.0 (0.0-0.4) % Neut % (Auto) 40.0 L (45-73) % Lymph % (Auto) 33.9 (20-40) % [place] % (Auto) 13.2 H (2-11) % Eos % (Auto) 11.6 H (0-4) % Baso % (Auto) 1.3 (0-2) % Lymph # (Auto) 1.3 (1.2-4.9) X10*3/uL [place] # (Auto) 0.5 (0.1-1.2) X10*3/uL Eos # (Auto) 0.4 (0.0-0.4) X10*3/uL Baso # (Auto) 0.1 (0.0-0.2) X10*3/uL Abs Immat Gran (auto) 0.00 (0.00-0.03) X10*3/uL Absolute Neuts (auto) 1.5 L (2.0-8.3) x10*3/uL Absolute Nucleated RBC 0.000 (0.0-0.012) X10*3/uL Nucleated RBC % (auto) 0.0 (0.0-0.2) /100WBC Sodium 142 (135-145) mmol/L Potassium 3.9 (3.3-5.1) mmol/L Chloride 105 (96-108) mmol/L Carbon Dioxide 29 (22-29) mmol/L Anion Gap 12 (12-20) BUN 23 H (9-16) mg/dL Creatinine 1.02 (0.5-1.4) mg/dL Estim Creat Clear Calc 120.4 Estimated GFR > 60 Random Glucose 119 H (60-115) mg/dL Calcium 8.9 (8.4-10.2) mg/dL Total Bilirubin 0.4 (0.0-1.0) mg/dL AST 110 H (5-37) U/L ALT 68 H (0-40) U/L Alkaline Phosphatase 62 (39-117) U/L Total Protein 6.9 (6.5-8.0) g/dL Albumin 4.8 (3.5-5.0) g/dL Urine Color Yellow Urine Appearance Clear Urine pH 6.5 (5.0-9.0) Ur Specific [place] 1.025 (1.005-1.025) Urine Protein Negative (Neg-Trace) mg/dL Urine Glucose (UA) Negative (Negative) mg/dL Urine Ketones Negative (Negative) mg/dL Urine Blood Negative (Negative) Urine Nitrite Negative (Negative) Ur Leukocyte Esterase Negative (Negative) Salicylates < 5.0 L (15-30) mg/dL Urine Opiates Screen Not Detected (Not Detect) Ur Buprenorphine Scrn Not Detected (Not Detect) ng/mL Ur Oxycodone Screen Not Detected (Not Detect) ng/mL Urine Methadone Screen Not Detected (Not Detect) ng/mL Urine Fentanyl Screen Not Detected (Not Detect) Acetaminophen < 3 (<30) mcg/mL Ur Barbiturates Screen Not Detected (Not Detect) Ur Phencyclidine Scrn Not Detected (Not Detect) Ur Amphetamines Screen Not Detected (Not Detect) U Benzodiazepines Scrn Not Detected (Not Detect) Urine Cocaine Screen Not Detected (Not Detect) U Marijuana (THC) Screen POSITIVE H (Not Detect) Ethyl Alcohol < 10 mg/dL External Record Review External record reviewed: Inpatient record, Office record and Outpatient record Discharge Plan Discharge Clinical Impression: Auditory hallucination, Schizophrenia Patient Disposition: Admitted As Inpatient Interventions: [place]-Suicide Risk Severity Scale Last Done: 05/08/25 13:20 Print Language: Turkish
[2025-05-08 12:45] LABS: MANUAL DIFF FLAG NO
[2025-05-08 12:50] LABS: Appearance Urine Clear; Glucose Urine UA Negative (Negative); PH 6.5 (5.0-9.0); Specific Gravity - Urine 1.025 (1.005-1.025)
[2025-05-08 12:50] LABS: Hematocrit 39.9 % (42.0-52.0); Hemoglobin 13.6 g/dl (14.0-18.0); Imm Gran Abs Auto 0.00 X10*3/uL (0.00-0.03); Imm Gran Pct Auto 0.0 % (0.0-0.4); Lymphocytes Absolute Auto 1.3 X10*3/uL (1.2-4.9); Mean Corpuscular HGB Conc 34.1 g/dl (31.0-36.0); Mean Corpuscular Hemoglobin 31.0 pg (27.0-33.0); Mean Corpuscular Volume 90.9 fL (80.0-98.0); NRBC Abs Auto 0.000 X10*3/uL (0.0-0.012); NRBC Pct Auto 0.0 /100WBC (0.0-0.2); Platelet Count 298 X10*3/uL (160-400); Red Blood Count 4.39 X10*6/uL (4.60-5.80); White Blood Count 3.8 X10*3/uL (4.8-10.8)
[2025-05-08 12:59] LABS: Cannabinoid Screen Urine POSITIVE (Not Detect)
[2025-05-08 13:03] LABS: Acetaminophen LAB < 3 mcg/mL (<30); Alanine Aminotransferase 68 U/L (0-40); Albumin Level 4.8 g/dL (3.5-5.0); Alkaline Phosphatase 62 U/L (39-117); Anion Gap 12 (12-20); Aspartate Amino Transferase 110 U/L (5-37); Blood Urea Nitrogen 23 mg/dL (9-16); Calcium 8.9 mg/dL (8.4-10.2); Carbon Dioxide 29 mmol/L (22-29); Chloride 105 mmol/L (96-108); Creatinine Clr Calc Pharmacy 120.4; Estimated Glomerular Filt Rate > 60; Potassium 3.9 mmol/L (3.3-5.1); Salicylate < 5.0 mg/dL (15-30); Sodium 142 mmol/L (135-145); Total Protein 6.9 g/dL (6.5-8.0)
--- NOTE | 2025-05-08 13:29 | ECG_ITS ---
Test Reason : R/O PROLONGED QT Blood Pressure : */* mmHG Vent. Rate : 62 BPM Atrial Rate : 62 BPM P-R Int : 146 ms QRS Dur : 116 ms QT Int : 416 ms P-R-T Axes : 53 56 23 degrees QTcB Int : 422 ms Normal sinus rhythm Normal ECG When compared with ECG of 10-Apr-2025 09:41, No significant change was found Referred By: Radha Rose Electronically Signed By: SONIYA PACK MD
--- OUTSIDE RECORDS SUMMARY | 2025-05-08 15:58 | XMS_ITS | Clinical Summary ---
Author Organization [facility] Address [address] [place] [address] Phone Care Team Providers Care Wire Sawyer Name Role Phone Physician, Pcp Unknown Primary Care Provider Tomasa vailable Allergies Active Allergy Reactions Criticality Noted Date Comments Peanut 03/14/2025 Shellfish Derived 03/15/2025 Medications hydrOXYzine HCL (ATARAX) 10 mg tablet Take 1 tablet (10 mg total) by mouth every 6 (six) hours if needed for anxiety for up to 10 days. 30 tablet Active Lactobacillus acidophilus 100 mg (1 billion cell) capsule Take 1 capsule by mouth 2 (two) times a day. 60 each 04/14/20 25 Encounters Date Type Department Care Team Description 04/25/2025 7:19 AM EDT - 04/25/2025 12:31 PM EDT [facility] Emergency [address] [place] [phone] Anxiety (Primary Dx) Discharge Disposition: Home or Self Care 04/24/2025 10:57 PM EDT - 04/24/2025 11:00 PM EDT Emergency [facility] Emergency [address] [place] [phone] Homelessness (Primary Dx) Discharge Disposition: Home or Self Care 03/15/2025 10:20 PM EDT - 03/16/2025 12:12 AM EDT [facility] Emergency [address] [place] [phone] Nauseated (Primary Dx); Homeless Discharge Disposition: Home or Self Care 03/15/2025 12:12 AM EDT - 03/15/2025 12:29 AM EDT [facility] Emergency [address] [place] [phone] Lalit Garcia MD Diarrhea, unspecified type (Primary [...] Sign Reading Time Taken Comments Blood Pressure 121/77 04/25/2025 6:30 AM EDT Pulse 58 04/25/2025 6:30 AM EDT Temperature 36.4 C (97.5 F) 04/25/2025 6:30 AM EDT Respiratory Rate 16 04/25/2025 6:30 AM EDT Oxygen Saturation 100% 04/25/2025 6:30 AM EDT Inhaled Oxygen Concentration - - Weight 77 kg (169 lb 12.1 oz) 04/25/2025 6:30 AM EDT Height 175 cm (5' 8.9 ) 04/25/2025 6:30 AM EDT Body Mass Index 25.14 04/25/2025 6:30 AM EDT Plan of Treatment Health Maintenance Due Date Last Done Comments Pneumococcal Vaccine: Pediatrics (0 to 5 Years) and At-Risk Patients (6 to 49 Years) (1 of 1 - PPSV23) 2006 02/06/2002, 2000, 2000, Additional history exists HIV Screening 07/29/2022 Hepatitis C Screening 07/29/2022 Medicare Annual Wellness Visit 07/29/2022 Social Influencers of Health Screening 07/29/2022 Depression Screening 08/30/2024 COVID-19 Vaccine ( season) 2025 Influenza Vaccine (#1) 2025 3, 11/27/2021, 06/17/2018, Additional history exists DTaP,Tdap,and Td [...] Insurance MEDICAID - [place] MEDICARE Care Teams Wire Sawyer Relationship Specialty Start Date End Date Physician, Pcp Unknown PCP - General 04/24/25
--- NOTE | 2025-05-08 19:00 | PC.NURSE ---
Assumed care of patient at 1900, patient currently resting in bed, patient appears to be in no apparent distress, plan of care ongoing.
[2025-05-09 02:53] VITALS: BP 118/53; PULSE 58; RESP 16; TEMP 36.8; O2SAT 100
--- NOTE | 2025-05-09 07:32 | PC.NURSE ---
Assumed care of pt this morning. Requiring assurance of contents of his breakfast tray, able to make needs known. No behavioral concerns at this time. Witnessed ambulating to restroom steadily and independently.
--- NOTE | 2025-05-09 12:02 | PC.NURSE ---
Report given to Abena ALEXANDRA from [facility].
[2025-05-09 12:50] VITALS: BP 109/52; PULSE 54; RESP 14; TEMP 36.7; O2SAT 100
[2025-05-09 13:14] VITALS: BMI 27.0
--- NOTE | 2025-05-09 18:08 | PC.ADMIT ---
Romeo was admitted to from [facility] pod on 05/09/25 at 12:39 for the treatment of auditory hallucinations. He self presented to the ED and reported having AH over the past week. He is alert and oriented to person, place, date, situation. Skin/contraband check was completed by this machine sign writer and another RN. He was pleasant and cooperative with admission process. He was guarded and made intense eye contact during conversation. He states he is unhoused with minimal supports. He reports using marijuana daily. Utox was positive for THC, BAL<10. He denies physical complaints and reports history of asthma. He denies current SI/HI/AVH. He reports his sleep is alright and states his appetite has been low. He was placed on 15 minute checks for safety.
[2025-05-09 20:00] VITALS: BP 107/63; PULSE 112; RESP 18; TEMP 36.5; O2SAT 97
--- NOTE | 2025-05-09 23:36 | PC.NURSE ---
Pt refused HS Risperidone @2100
[2025-05-10 08:15] VITALS: BP 125/71; PULSE 71; RESP 16; TEMP 36.4; O2SAT 100
--- NOTE | 2025-05-10 09:52 | HO.PSYADMNOT ---
HPI Date of Service: 05/10/25 Chief Complaint: Psychosis Sources of Information: patient interviewed, chart reviewed and crisis/core team assessment reviewed Additional Sources of Information: Pt seen 130pm HPI Subjective Notes: Ward Warning and Conditional Voluntary Healthcare Proxy: No Guardianship: No Medical Problems Affecting Mental Status: No Narrative: 25 yo male, history of schizophrenia, to ER with report of auditory perceptual alterations occurring for the past week. Recent M5 admit 04/10-04/20. Denied SI, HI, VH. Pt prior to admit has been noncompliant with medicine. He has a history of substance use and we were informed that family had considered Section 35 in the past. Toxicology positive for cannabis on admit. Pt reports sleep interruption with latency sx and THOMAS and poor appetite. He also reports an increase in anxiety and is willing to trial a mood stabilizer for sx mgt of anxiety. He remains homeless, reports he has been sleeping outside in [place] and is willing to look at some intermediate options. Discussed changing Risperdal to MURRAY which he declines at this time. Past Psychiatric History: Reports at least 10 inpatient level of care admissions, with last admission was in January at [facility] for the same reason: Being homeless. No history of PHP, this tox. Outpatient psychiatrist Betzy Mueller [facility]: Last seen was last month. He is on waiting list for therapist. He has PCP, however not sure when he last seen. Medication trials: Latuda. He can not recall any trials before. Medical Evaluation Reviewed: Yes [facility] Medical History (Updated 05/10/25 @ 17:37 by Doris Peñaloza, EMERGENCY SPILL RESPONSE TECHNICIAN) Cannabis use disorder Family History: Reported that he left his parents at 18 years old, has not talking to them, feel like they can not communicate well, I do not want to talk to them we are not understanding . Reported that his parents have mental health illnesses, unsure in details. Reports that he is not sure if any substance use in his family. He also has a older brother who is autistic. Social History: He is single, never , has no children, graduated from high school, was in 1st year of college but dropped out. He used to work at [employer] in the [employer] back in 2022. Currently unemployed. Being homeless, sometimes stay with a friend. Substance History: toxicology positive for cannabis Trauma History: Denies trauma history Diagnostics Vital Signs (24Hr): Vital Signs - 24 hr 05/09/25 12:50 05/09/25 20:00 05/10/25 08:15 Temperature 98.1 F 97.7 F 97.5 F Pulse Rate 54 112 H 71 Respiratory Rate 14 18 16 Blood Pressure 109/52 L 107/63 125/71 Pulse Oximetry 100 97 100 Oxygen Delivery Method Room Air Room Air Room Air BMI result Body Mass Index 27.0 Labs 05/08/25 12:40 05/08/25 12:40 Labs: Laboratory Results - last 48 hr 05/08/25 05/08/25 12:32 12:40 WBC 3.8 L RBC 4.39 L Hgb 13.6 L Hct 39.9 L MCV 90.9 MCH 31.0 MCHC 34.1 RDW 13.6 Plt Count 298 D MPV 10.1 Immature Gran % (Auto) 0.0 Neut % (Auto) 40.0 L Lymph % (Auto) 33.9 [place] % (Auto) 13.2 H Eos % (Auto) 11.6 H Baso % (Auto) 1.3 Lymph # (Auto) 1.3 [place] # (Auto) 0.5 Eos # (Auto) 0.4 Baso # (Auto) 0.1 Abs Immat Gran (auto) 0.00 Absolute Neuts (auto) 1.5 L Absolute Nucleated RBC 0.000 Nucleated RBC % (auto) 0.0 Sodium 142 Potassium 3.9 Chloride 105 Carbon Dioxide 29 Anion Gap 12 BUN 23 H Creatinine 1.02 Estim Creat Clear Calc 120.4 Estimated GFR > 60 Random Glucose 119 H Calcium 8.9 Total Bilirubin 0.4 AST 110 H ALT 68 H Alkaline Phosphatase 62 Total Protein 6.9 Albumin 4.8 Urine Color Yellow Urine Appearance Clear Urine pH 6.5 Ur Specific [place] 1.025 Urine Protein Negative Urine Glucose (UA) Negative Urine Ketones Negative Urine Blood Negative Urine Nitrite Negative Ur Leukocyte Esterase Negative Salicylates < 5.0 L Urine Opiates Screen Not Detected Ur Buprenorphine Scrn Not Detected Ur Oxycodone Screen Not Detected Urine Methadone Screen Not Detected Urine Fentanyl Screen Not Detected Acetaminophen < 3 Ur Barbiturates Screen Not Detected Ur Phencyclidine Scrn Not Detected Ur Amphetamines Screen Not Detected U Benzodiazepines Scrn Not Detected Urine Cocaine Screen Not Detected U Marijuana (THC) Screen POSITIVE H Ethyl Alcohol < 10 EKG EKG: reviewed EKG Comment: 05/09/25 WNL Meds/Allergies Meds Home Medications ?Medication ?Instructions ?Recorded ?Confirmed ?Type hydroxyzine pamoate 25 mg capsule 25 mg PO Q6H PRN anxiety 05/08/25 05/08/25 History risperidone 3 mg tablet 6 mg PO BEDTIME 05/08/25 05/08/25 History Allergies Allergies Allergy/AdvReac Type Severity Reaction Status Date / Time peanut Allergy Hives Verified 05/08/25 12:02 seafood Allergy Unknown Verified 05/08/25 12:02 shellfish derived (shellfish) Allergy Unknown Verified 05/08/25 12:02 Mental Status Exam Mental Status Exam Patient Appearance: Appropriate Patient Orientation: Person, Place, Time and Situation Level of Consciousness: Alert Patient Behavior: Talkative Mood Description: Blunted Affect Description: Blunted Patient Cognition Impaired: No Ability to Follow Directions: Good Speech Pattern: Difficulty Finding Words, Monotone, Spontaneous Speech and Delayed Memory Description: Episodic Impaired Hallucinations: Auditory Delusions: Not Present Thought Process: Distracted Thought Content: positive for Burns, positive for Circumstantial, positive for Thought Blocking, positive for Suicidal Ideation (denies) and positive for Homicidal Ideation (denies) Judgement: Fair Assessment & Plan Assessment & Plan (1) Schizophrenia: Status: Acute Qualifiers: Schizophrenia type: unspecified Qualified Code(s): F20.9 - Schizophrenia, unspecified Code(s): F20.9 - Schizophrenia, unspecified (2) Cannabis use disorder: Status: Acute Code(s): F12.90 - Cannabis use, unspecified, uncomplicated Plan 25 yo male, history of schizophrenia, to ER with report of auditory perceptual alterations occurring for the past week. Recent M5 admit 04/10-04/20. Denied SI, HI, VH. Pt prior to admit has been noncompliant with medicine. He has a history of substance use and we were informed that family had considered Section 35 in the past. Toxicology positive for cannabis on admit. Pt reports sleep interruption with latency sx and THOMAS and poor appetite. He also reports an increase in anxiety and is willing to trial a mood stabilizer for sx mgt of anxiety. He remains homeless, reports he has been sleeping outside in [place] and is willing to look at some intermediate options. Discussed changing Risperdal to MURRAY which he declines at this time. Plan: Admit to M5, CV, 15 minute checks Collateral Contacts Diagnostics as needed Continue regime Add Trileptal 300 mg bid for mood, anxiety, sleep assist Encourage full milieu Discharge planning Patient educated on: medication risk/benefits and therapeutic strategies Reason for continued inpatient stay Substantial Risk for: rapid decompensation Statement Statement: I have reviewed the history and physical and performed a pertinent examination on my patient. No changes have occurred unless specified. If the History and Physical was not performed prior to admission, the Hospitalist's service will be consulted for completing the admission physical. Time Spent With Patient Time: Total time managing care of this patient today ____ minutes.
--- NOTE | 2025-05-10 14:08 | P.CONHOSP_ITS ---
History of Present Illness Data of Consult Service Date: 05/10/25 Primary Care Provider: Unknown Physician HPI Reason for consult: Medical management 25-year-old male with a history of anxiety, depression and schizophrenia presented to the ED with auditory hallucination. Labs drawn were unremarkable, no urinary tract infection, drug screen positive for cannabis, patient was medically cleared and admitted to inpatient level of care. On exam he has no medical complaints, denies any shortness of breath, dizziness, lightheadedness or any other concerning symptoms. His vitals are stable. Review of Systems 2 Review of Systems: Denies any shortness of breath, chest pain, dizziness, lightheadedness, abdominal pain or discomfort, nausea vomiting or diarrhea PMFSH Social History Household Members: None Household Members Other:: unhoused Housing: Homeless Do you presently have visiting nurse or other home services: No Patient Tobacco Use Status: Current everyday Tobacco user Tobacco use type: Cigarette Smoked in Last 30 Days: Yes e-Cigarette/Vaping Use: Former Use Frequency of e-Cigarette/Vaping Use: once a week Patient Interested in Nicotine Replacement: No Patient Given Instructions on How to Stop Smoking: No Substance Use Type: Marijuana Currently Displaying Signs/Symptoms of Drug Intoxication Withdrawal: No Have you been hit, kicked, punched, or otherwise hurt by someone within the past year? If so, by whom?: No Do you feel safe in your current relationship?: No Current Relationship Is there a partner from a previous relationship who is making you feel unsafe now?: No Are you made to feel afraid or neglected: Yes (my parents) Advance Directives: No Advance Directives Information Provided: Yes Do you have thoughts of harming others: None Do you have a plan to hurt others: No Plan Recently lost weight without trying: No How much weight loss: Not applicable Eating poorly because of decreased appetite: Yes Nutrition screen score: 1 Nutrition Risks: No Nutritional Risk Poor oral hygiene: No service: No Sexual orientation: Straight/Heterosexual Meds Allergies Allergy/AdvReac Type Severity Reaction Status Date / Time peanut Allergy Hives Verified 05/08/25 12:02 seafood Allergy Unknown Verified 05/08/25 12:02 shellfish derived (shellfish) Allergy Unknown Verified 05/08/25 12:02 Active Medications: Current Medications Acetaminophen (Acetaminophen 325 Mg Tablet) 650 mg PO Q6H PRN PRN Reason: Headache/Pain, Scale 1-10 Al Hydroxide/Mg Hydroxide (Magnesium Hydrox/Alum Hydrox 30 Ml Oral.Susp) 30 ml PO Q6H PRN PRN Reason: Heartburn/Nausea Hydroxyzine HCl (Hydroxyzine Hcl 25 Mg Tablet) 25 mg PO Q6H PRN PRN Reason: mild anxiety Magnesium Hydroxide (Milk Of Magnesia 30 Ml Oral.Susp) 30 ml PO DAILY PRN PRN Reason: Constipation Nicotine (Nicotine 21 Mg Patch.Td24) 21 mg TRANSDERMA DAILY PRN PRN Reason: smoking cessation Olanzapine (Olanzapine 5 Mg Tablet) 5 mg PO TID PRN PRN Reason: agitation Risperidone (Risperidone 3 Mg Tablet) 6 mg PO BEDTIME RIKKI Last Admin: 05/09/25 22:05 Dose: Not Given Trazodone HCl (Trazodone Hcl 50 Mg Tablet) 50 mg PO BEDTIME MRX1 PRN PRN Reason: Insomnia Home Medications ?Medication ?Instructions ?Recorded ?Confirmed ?Last Taken ?Type hydroxyzine pamoate 25 mg capsule 25 mg PO Q6H PRN anx iety 05/08/25 05/08/25 Unknown History risperidone 3 mg tablet 6 mg PO BEDTIME 05/08/2505/24 Unknown History Physical Exam 2 Vital Signs and Narrative: Vital Signs: Last Vital Signs Temp 97.5 F 05/10/25 08:15 Pulse 71 05/10/25 08:15 Resp 16 05/10/25 08:15 BP 125/71 05/10/25 08:15 Pulse Ox 100 05/10/25 08:15 O2 Del Method Room Air 05/10/25 08:15 BMI result Body Mass Index 27.0 CONST: Alert and oriented, in NAD. Well nourished HEENT: Normocephalic, atraumatic, MMM, Eyes clear, Neck supple RESP: Lungs clear, RRR even and regular HEART:,RRR, S1, S2. No murmur, no edema GI:Abdomen Soft NT, ND. + BS times four :Deferred SKIN: Warm dry and intact, no visible lesions or rashes NEURO:CN II-XII Intact bilaterally, Sensation intact. Speech clear PSYCH: Flat affect, cooperative Results Labs 05/08/25 12:40 05/08/25 12:40 Assessment and Plan (1) Schizophrenia: Qualifiers: Schizophrenia type: unspecified Qualified Code(s): F20.9 - Schizophrenia, unspecified Status: Acute Plan 25-year-old male with history of schizophrenia, depression and anxiety, presented to the ED with auditory hallucinations, he is admitted to the inpatient level of care for treatment. Anxiety/depression/schizophrenia/auditory hallucinations Treatment per psychiatric team Thank you for allowing me to participate in the care of this patient. Signing off at this time. Please reconsult of any acute concerns or issues arise
[2025-05-10 20:00] VITALS: BP 110/55; PULSE 93; RESP 16; TEMP 37.1; O2SAT 96
[2025-05-11 08:25] VITALS: BP 111/58; PULSE 60; RESP 16; TEMP 35.9; O2SAT 99
--- NOTE | 2025-05-11 10:16 | HO.PSYCHPN ---
Subjective Subjective Date of Service: 05/11/25 Reason For Visit: Psychosis Subjective Notes: Conditional Voluntary Healthcare Proxy: No Guardianship: No Medical Problems Affecting Mental Status: No Interim History: Refused Risperdal last evening to take Trileptal. Discussed using both for improved efficacy. I can maybe try . Medication Compliance: Intermittent Side effects from medications: No Attending Groups: No Review of Systems Acute medical concerns: No Medical Review of Systems: unchanged Review of Systems Review of Systems Denies Mental Status Exam Mental Status Exam Patient Appearance: Appropriate Patient Orientation: Person, Place, Time and Situation Level of Consciousness: Alert Patient Behavior: Guarded Mood Description: Constricted Affect Description: Constricted Patient Cognition Impaired: Yes Ability to Follow Directions: Fair Speech Pattern: Spontaneous Speech Memory Description: Episodic Impaired Hallucinations: None (denies) Delusions: Paranoid Ideation Thought Process: Distracted Thought Content: positive for Circumstantial and positive for Perseveration Judgement: Fair Diagnostics Vital Signs (24Hr): Vital Signs - 24 hr 05/10/25 20:00 05/11/25 08:25 Temperature 98.8 F 96.7 F L Pulse Rate 93 60 Respiratory Rate 16 16 Blood Pressure 110/55 L 111/58 L Pulse Oximetry 96 99 Oxygen Delivery Method Room Air Room Air BMI result Body Mass Index 27.0 Labs 05/08/25 12:40 05/08/25 12:40 Medications Medications Current Medications Acetaminophen (Acetaminophen 325 Mg Tablet) 650 mg PO Q6H PRN PRN Reason: Headache/Pain, Scale 1-10 Al Hydroxide/Mg Hydroxide (Magnesium Hydrox/Alum Hydrox 30 Ml Oral.Susp) 30 ml PO Q6H PRN PRN Reason: Heartburn/Nausea Hydroxyzine HCl (Hydroxyzine Hcl 25 Mg Tablet) 25 mg PO Q6H PRN PRN Reason: mild anxiety Magnesium Hydroxide (Milk Of Magnesia 30 Ml Oral.Susp) 30 ml PO DAILY PRN PRN Reason: Constipation Nicotine (Nicotine 21 Mg Patch.Td24) 21 mg TRANSDERMA DAILY PRN PRN Reason: smoking cessation Olanzapine (Olanzapine 5 Mg Tablet) 5 mg PO TID PRN PRN Reason: agitation Oxcarbazepine (Oxcarbazepine 300 Mg Tablet) 300 mg PO BID [facility] Last Admin: 05/11/25 08:27 Dose: 300 mg Risperidone (Risperidone 3 Mg Tablet) 6 mg PO BEDTIME [facility] Last Admin: 05/10/25 21:35 Dose: Not Given Trazodone HCl (Trazodone Hcl 50 Mg Tablet) 50 mg PO BEDTIME MRX1 PRN PRN Reason: Insomnia Allergies Allergies Allergy/AdvReac Type Severity Reaction Status Date / Time peanut Allergy Hives Verified 05/08/25 12:02 seafood Allergy Unknown Verified 05/08/25 12:02 shellfish derived (shellfish) Allergy Unknown Verified 05/08/25 12:02 Assessment & Plan Assessment & Plan (1) Schizophrenia: Qualifiers: Schizophrenia type: unspecified Qualified Code(s): F20.9 - Schizophrenia, unspecified Status: Acute Code(s): F20.9 - Schizophrenia, unspecified (2) Cannabis use disorder: Status: Acute Code(s): F12.90 - Cannabis use, unspecified, uncomplicated Plan 25 yo male, history of schizophrenia, to ER with report of auditory perceptual alterations occurring for the past week. Recent M5 admit 04/10-04/20. Denied SI, HI, VH. Pt prior to admit has been noncompliant with medicine. He has a history of substance use and we were informed that family had considered Section 35 in the past. Toxicology positive for cannabis on admit. Pt reports sleep interruption with latency sx and THOMAS and poor appetite. He also reports an increase in anxiety and is willing to trial a mood stabilizer for sx mgt of anxiety. He remains homeless, reports he has been sleeping outside in [place] and is willing to look at some detention options. Discussed changing Risperdal to MURRAY which he declines at this time. 05/11: Continue tx. Encouarge both Risperdal and Trileptal compliance Plan: Admit to M5, CV, 15 minute checks Collateral Contacts Diagnostics as needed Continue regime Add Trileptal 300 mg bid for mood, anxiety, sleep assist Encourage full milieu Discharge planning Reason for continued inpatient stay Substantial Risk for: rapid decompensation Time Spent With Patient Time: Total time managing care of this patient today ____ minutes.
[2025-05-11] MEDS: Milk of Magnesia 30 ML ORAL.SUSP PO (15:02)
--- NOTE | 2025-05-12 08:04 | P.PNPSI_ITS ---
Subjective Subjective Date of Service: 05/12/25 Reason For Visit: Psychosis Subjective Notes: Conditional Voluntary Healthcare Proxy: No Guardianship: No Medical Problems Affecting Mental Status: No Interim History: Medical record and nursing notes reviewed; case discussed during rounds with team/nursing staff, and met with patient for supportive therapy/psychoeducation, as well as medication management. Patient slept 7 hours but suspect not want to taking Trileptap as nursing report patient displaced some behavior that suspected not wanting to take meds- dropped meds on the floor. Patient took this morning dose. However, nursing report that patient experience pink rash on the body with itchy feeling. Ordered benadryl 25mg x1 and hold Trileptal until this provider can physically can face to face assess patient tomorrow. Patient expressed wanting to to take Risperidone again. Denies SI/SIB/HI/AVH, anxiety or depression, appear to minimize symptoms as he appears to be preoccupied. Medication Compliance: Yes Side effects from medications: No Attending Groups: Intermittent Review of Systems Acute medical concerns: No Medical Review of Systems: unchanged Review of Systems Review of Systems Denies Mental Status Exam Mental Status Exam Patient Appearance: Appropriate Patient Orientation: Person, Place, Time and Situation Level of Consciousness: Alert Patient Behavior: Guarded Mood Description: Constricted Affect Description: Constricted Patient Cognition Impaired: Yes Ability to Follow Directions: Fair Speech Pattern: Spontaneous Speech Memory Description: Episodic Impaired Hallucinations: None (denies) Delusions: Paranoid Ideation Thought Process: Distracted Thought Content: positive for Circumstantial and positive for Perseveration Judgement: Fair Diagnostics Vital Signs (24Hr): Vital Signs - 24 hr 05/11/25 08:25 Temperature 96.7 F L Pulse Rate 60 Respiratory Rate 16 Blood Pressure 111/58 L Pulse Oximetry 99 Oxygen Delivery Method Room Air BMI result Body Mass Index 27.0 Labs 05/08/25 12:40 05/08/25 12:40 Medications Medications Current Medications Acetaminophen (Acetaminophen 325 Mg Tablet) 650 mg PO Q6H PRN PRN Reason: Headache/Pain, Scale 1-10 Al Hydroxide/Mg Hydroxide (Magnesium Hydrox/Alum Hydrox 30 Ml Oral.Susp) 30 ml PO Q6H PRN PRN Reason: Heartburn/Nausea Hydroxyzine HCl (Hydroxyzine Hcl 25 Mg Tablet) 25 mg PO Q6H PRN PRN Reason: mild anxiety Magnesium Hydroxide (Milk Of Magnesia 30 Ml Oral.Susp) 30 ml PO DAILY PRN PRN Reason: Constipation Last Admin: 05/11/25 15:02 Dose: 30 ml Nicotine (Nicotine 21 Mg Patch.Td24) 21 mg TRANSDERMA DAILY PRN PRN Reason: smoking cessation Olanzapine (Olanzapine 5 Mg Tablet) 5 mg PO TID PRN PRN Reason: agitation Oxcarbazepine (Oxcarbazepine 300 Mg Tablet) 300 mg PO BID RIKKI Last Admin: 05/11/25 21:06 Dose: 300 mg Risperidone (Risperidone 3 Mg Tablet) 6 mg PO BEDTIME RIKKI Last Admin: 05/11/25 21:06 Dose: 6 mg Trazodone HCl (Trazodone Hcl 50 Mg Tablet) 50 mg PO BEDTIME MRX1 PRN PRN Reason: Insomnia Allergies Allergies Allergy/AdvReac Type Severity Reaction Status Date / Time peanut Allergy Hives Verified 05/08/25 12:02 seafood Allergy Unknown Verified 05/08/25 12:02 shellfish derived (shellfish) Allergy Unknown Verified 05/08/25 12:02 Assessment & Plan Assessment & Plan (1) Schizophrenia: Qualifiers: Schizophrenia type: unspecified Qualified Code(s): F20.9 - Schizophrenia, unspecified Status: Acute Code(s): F20.9 - Schizophrenia, unspecified (2) Cannabis use disorder: Status: Acute Code(s): F12.90 - Cannabis use, unspecified, uncomplicated Plan 25 yo male, history of schizophrenia, to ER with report of auditory perceptual alterations occurring for the past week. Recent M5 admit 04/10-04/20. Denied SI, HI, VH. Pt prior to admit has been noncompliant with medicine. He has a history of substance use and we were informed that family had considered Section 35 in the past. Toxicology positive for cannabis on admit. Pt reports sleep interruption with latency sx and THOMAS and poor appetite. He also reports an increase in anxiety and is willing to trial a mood stabilizer for sx mgt of anxiety. He remains homeless, reports he has been sleeping outside in [place] and is willing to look at some intermediate options. Discussed changing Risperdal to MURRAY which he declines at this time. 05/11: Continue tx. Encouarge both Risperdal and Trileptal compliance 05/12/25: Patient slept 7 hours but suspect not want to taking Trileptap as nursing report patient displaced some behavior that suspected not wanting to take meds- dropped meds on the floor. Patient took this morning dose. However, nursing report that patient experience pink rash on the body with itchy feeling. Ordered benadryl 25mg x1 and hold Trileptal until this provider can physically can face to face assess patient tomorrow. Patient expressed wanting to to take Risperidone again. Denies SI/SIB/HI/AVH, anxiety or depression, appear to minimize symptoms as he appears to be preoccupied. Continue with treatment plan. will hold Trileptal tonight dose until able to do face to face assesment. Continue to encourage medication compliant and consistent. Plan: Admit to M5, CV, 15 minute checks Collateral Contacts Diagnostics as needed Continue regime Add Trileptal 300 mg bid for mood, anxiety, sleep assist: held on 05/12/25 d/t possibe rash side effects. Encourage full milieu Discharge planning Patient educated on: diagnosis, medication risk/benefits and therapeutic strategies Informed Consent: understands Reason for continued inpatient stay Substantial Risk for: med/psych decompensation Time Spent With Patient Time: Total time managing care of this patient today ____ minutes.
[2025-05-12 08:45] VITALS: BP 129/68; PULSE 92; RESP 16; TEMP 36.9; O2SAT 99
[2025-05-12 15:38] VITALS: TEMP 36.7
[2025-05-12] MEDS: Milk of Magnesia 30 ML ORAL.SUSP PO (15:38)
[2025-05-12 19:54] VITALS: BP 135/67; PULSE 84; RESP 15; TEMP 36.5; O2SAT 97
[2025-05-13 08:00] VITALS: BP 117/60; PULSE 93; RESP 18; O2SAT 98
[2025-05-13 19:56] VITALS: BP 132/77; PULSE 102; RESP 15; TEMP 36.4; O2SAT 97
--- NOTE | 2025-05-13 20:54 | P.PNPSI_ITS ---
Subjective Subjective Date of Service: 05/13/25 Reason For Visit: Psychosis Subjective Notes: Conditional Voluntary Healthcare Proxy: No Guardianship: No Medical Problems Affecting Mental Status: No Interim History: Medical record and nursing notes reviewed; case discussed during rounds with team/nursing staff, and met with patient for supportive therapy/psychoeducation, as well as medication management. Patient slept for 8 hours, was compliant with medications. Assess patient [id number] regarding the rash that started yesterday per nursing reports. Rash observed on bilateral arms and legs, more prominence on the legs than the upper arms. Suspected from the Trileptal. Therefore it is discontinued. . Patient reports still feeling itchy from the rash. No rash on the trunk or in the back. Encourage patient to continue taking risperidone which he has been in the past couple of days. Patient denies safety concerns or hallucinations. However, he appears to be preoccupied, superficial. Observe visible but isolated to himself, doing some pushups in room. No behavior issues. Medication Compliance: Yes Side effects from medications: Yes (From trileptal- Rash ) Attending Groups: No Review of Systems Acute medical concerns: No Medical Review of Systems: unchanged Review of Systems Review of Systems Denies. Report rash on upper arm and lower legs. Feeling itchy. Mental Status Exam Mental Status Exam Patient Appearance: Appropriate Patient Orientation: Person, Place, Time and Situation Level of Consciousness: Alert Patient Behavior: Guarded Mood Description: Constricted Affect Description: Constricted Patient Cognition Impaired: Yes Ability to Follow Directions: Fair Speech Pattern: Spontaneous Speech Memory Description: Episodic Impaired Hallucinations: None (denies) Delusions: Paranoid Ideation Thought Process: Distracted Thought Content: positive for Circumstantial and positive for Perseveration Judgement: Fair Diagnostics Vital Signs (24Hr): Vital Signs - 24 hr 05/13/25 08:00 05/13/25 19:56 Temperature 97.5 F Pulse Rate 93 102 H Respiratory Rate 18 15 Blood Pressure 117/60 132/77 Pulse Oximetry 98 97 Oxygen Delivery Method Room Air BMI result Body Mass Index 27.0 Labs 05/08/25 12:40 05/08/25 12:40 Medications Medications Current Medications Acetaminophen (Acetaminophen 325 Mg Tablet) 650 mg PO Q6H PRN PRN Reason: Headache/Pain, Scale 1-10 Al Hydroxide/Mg Hydroxide (Magnesium Hydrox/Alum Hydrox 30 Ml Oral.Susp) 30 ml PO Q6H PRN PRN Reason: Heartburn/Nausea Diphenhydramine HCl (Diphenhydramine Hcl 25 Mg Capsule) 25 mg PO Q6H PRN PRN Reason: Itching Hydroxyzine HCl (Hydroxyzine Hcl 25 Mg Tablet) 25 mg PO Q6H PRN PRN Reason: mild anxiety Last Admin: 05/12/25 16:33 Dose: 25 mg Magnesium Hydroxide (Milk Of Magnesia 30 Ml Oral.Susp) 30 ml PO DAILY PRN PRN Reason: Constipation Last Admin: 05/12/25 15:38 Dose: 30 ml Nicotine (Nicotine 21 Mg Patch.Td24) 21 mg TRANSDERMA DAILY PRN PRN Reason: smoking cessation Olanzapine (Olanzapine 5 Mg Tablet) 5 mg PO TID PRN PRN Reason: agitation Risperidone (Risperidone 3 Mg Tablet) 6 mg PO BEDTIME RIKKI Last Admin: 05/13/25 20:49 Dose: 6 mg Trazodone HCl (Trazodone Hcl 50 Mg Tablet) 50 mg PO BEDTIME MRX1 PRN PRN Reason: Insomnia Allergies Allergies Allergy/AdvReac Type Severity Reaction Status Date / Time peanut Allergy Hives Verified 05/08/25 12:02 seafood Allergy Unknown Verified 05/08/25 12:02 shellfish derived (shellfish) Allergy Unknown Verified 05/08/25 12:02 Assessment & Plan Assessment & Plan (1) Schizophrenia: Qualifiers: Schizophrenia type: unspecified Qualified Code(s): F20.9 - Schizophrenia, unspecified Status: Acute Code(s): F20.9 - Schizophrenia, unspecified (2) Cannabis use disorder: Status: Acute Code(s): F12.90 - Cannabis use, unspecified, uncomplicated Plan 25 yo male, history of schizophrenia, to ER with report of auditory perceptual alterations occurring for the past week. Recent M5 admit 04/10-04/20. Denied SI, HI, VH. Pt prior to admit has been noncompliant with medicine. He has a history of substance use and we were informed that family had considered Section 35 in the past. Toxicology positive for cannabis on admit. Pt reports sleep interruption with latency sx and THOMAS and poor appetite. He also reports an increase in anxiety and is willing to trial a mood stabilizer for sx mgt of anxiety. He remains homeless, reports he has been sleeping outside in [place] and is willing to look at some intermediate options. Discussed changing Risperdal to MURRAY which he declines at this time. 05/11: Continue tx. Encouarge both Risperdal and Trileptal compliance 05/12/25: Patient slept 7 hours but suspect not want to taking Trileptap as nursing report patient displaced some behavior that suspected not wanting to take meds- dropped meds on the floor. Patient took this morning dose. However, nursing report that patient experience pink rash on the body with itchy feeling. Ordered benadryl 25mg x1 and hold Trileptal until this provider can physically can face to face assess patient tomorrow. Patient expressed wanting to to take Risperidone again. Denies SI/SIB/HI/AVH, anxiety or depression, appear to minimize symptoms as he appears to be preoccupied. Continue with treatment plan. will hold Trileptal tonight dose until able to do face to face assesment. Continue to encourage medication compliant and consistent. 05/13/25: Patient slept for 8 hours, was compliant with medications. Assess patient [id number] regarding the rash that started yesterday per nursing reports. Rash observed on bilateral arms and legs, more prominence on the legs than the upper arms. Suspected from the Trileptal. Therefore it is discontinued. . Patient reports still feeling itchy from the rash. No rash on the trunk or in the back. Encourage patient to continue taking risperidone which he has been in the past couple of days. Patient denies safety concerns or hallucinations. However, he appears to be preoccupied, superficial. Observe visible but isolated to himself, doing some pushups in room. No behavior issues. Benadryl 25mg q6hr PRN for itching Discontinue Trileptal and added to allergy list. Plan: Admit to M5, CV, 15 minute checks Collateral Contacts Diagnostics as needed Continue regime Add Trileptal 300 mg bid for mood, anxiety, sleep assist: held on 05/12/25 d/t possibe rash side effects. Discontinue Trleptal. Encourage full milieu Discharge planning Patient educated on: medication risk/benefits and therapeutic strategies Informed Consent: understands and further education needed Reason for continued inpatient stay Substantial Risk for: med/psych decompensation Time Spent With Patient Time: Total time managing care of this patient today ____ minutes.
[2025-05-14 07:46] VITALS: BP 112/71; PULSE 78; TEMP 37.2; O2SAT 98
[2025-05-14 09:05] LABS: Alanine Aminotransferase 47 U/L (0-40); Albumin Level 4.6 g/dL (3.5-5.0); Alkaline Phosphatase 62 U/L (39-117); Anion Gap 15 (12-20); Aspartate Amino Transferase 35 U/L (5-37); Blood Urea Nitrogen 29 mg/dL (9-16); Calcium 8.8 mg/dL (8.4-10.2); Carbon Dioxide 25 mmol/L (22-29); Chloride 104 mmol/L (96-108); Cholesterol 167 mg/dL (<200); Creatinine Clr Calc Pharmacy 136.0; Estimated Glomerular Filt Rate > 60; HDL Cholesterol 59 mg/dL (>40); Potassium 4.5 mmol/L (3.3-5.1); Sodium 139 mmol/L (135-145); Total Protein 6.6 g/dL (6.5-8.0); Triglycerides 121 mg/dL (<150)
[2025-05-14 09:38] LABS: Hemoglobin A1C 123.5245 umol/L; Total Hemoglobin (HGBA1C) 3328.2430 umol/L
--- NOTE | 2025-05-14 11:26 | P.PNPSI_ITS ---
Subjective Subjective Date of Service: 05/14/25 Reason For Visit: Psychosis Interim History: met with patient; discussed with team; reviewed chart denies AH and paranoid ideations (and no paranoid ideations expressed). Discussed MURRAY and pt says no thank you... and that he changed his mind and just wants to take the pills by mouth; he says he has no hx of not taking medications in the community and that he always takes them..Denies depression or SI/HI. Mental Status Exam Mental Status Exam Narrative: Pt is alert and oriented; behavior is keeping to himself, but cooperative on approach; calm and in good behavioral/impulse control; patient is not in distress; dressed in casual attire with adequate hygiene and grooming; mood is described as good and affect blunted; eye contact appropriate; Speech is monotone; normal volume and prosody; no psychomotor agitation/retardation present; thought process is goal directed, concrete; Thought content is on dischage, treatment; otherwise pertinent to relevant topics and without any delusional content, paranoid ideations or grandiosity; denies any SI/HI. Denies AVH; no real thought blocking; maybe a little internally preoccupied. Patients insight and judgment fair. Diagnostics Vital Signs (24Hr): Vital Signs - 24 hr 05/13/25 19:56 05/14/25 07:46 Temperature 97.5 F 98.9 F Pulse Rate 102 H 78 Respiratory Rate 15 Blood Pressure 132/77 112/71 Pulse Oximetry 97 98 Oxygen Delivery Method Room Air BMI result Body Mass Index 27.0 Labs 05/08/25 12:40 05/14/25 08:36 Labs: Laboratory Results - last 48 hr 05/14/25 08:36 Sodium 139 Potassium 4.5 Chloride 104 Carbon Dioxide 25 Anion Gap 15 BUN 29 H Creatinine 0.83 Estim Creat Clear Calc 136.0 Estimated GFR > 60 Random Glucose 93 Estimat Average Glucose 111 Hemoglobin A1c % 5.5 Calcium 8.8 Total Bilirubin 0.2 AST 35 ALT 47 H Alkaline Phosphatase 62 Total Protein 6.6 Albumin 4.6 Triglycerides 121 Cholesterol 167 LDL Cholesterol, Calc 84 HDL Cholesterol 59 Medications Medications Current Medications Acetaminophen (Acetaminophen 325 Mg Tablet) 650 mg PO Q6H PRN PRN Reason: Headache/Pain, Scale 1-10 Al Hydroxide/Mg Hydroxide (Magnesium Hydrox/Alum Hydrox 30 Ml Oral.Susp) 30 ml PO Q6H PRN PRN Reason: Heartburn/Nausea Diphenhydramine HCl (Diphenhydramine Hcl 25 Mg Capsule) 25 mg PO Q6H PRN PRN Reason: Itching Hydroxyzine HCl (Hydroxyzine Hcl 25 Mg Tablet) 25 mg PO Q6H PRN PRN Reason: mild anxiety Last Admin: 05/12/25 16:33 Dose: 25 mg Magnesium Hydroxide (Milk Of Magnesia 30 Ml Oral.Susp) 30 ml PO DAILY PRN PRN Reason: Constipation Last Admin: 05/12/25 15:38 Dose: 30 ml Nicotine (Nicotine 21 Mg Patch.Td24) 21 mg TRANSDERMA DAILY PRN PRN Reason: smoking cessation Olanzapine (Olanzapine 5 Mg Tablet) 5 mg PO TID PRN PRN Reason: agitation Risperidone (Risperidone 3 Mg Tablet) 6 mg PO BEDTIME RIKKI Last Admin: 05/13/25 20:49 Dose: 6 mg Trazodone HCl (Trazodone Hcl 50 Mg Tablet) 50 mg PO BEDTIME MRX1 PRN PRN Reason: Insomnia Allergies Allergies Allergy/AdvReac Type Severity Reaction Status Date / Time peanut Allergy Hives Verified 05/08/25 12:02 seafood Allergy Unknown Verified 05/08/25 12:02 shellfish derived (shellfish) Allergy Unknown Verified 05/08/25 12:02 oxcarbazepine (From AdvReac Intermediate Rash Verified 05/13/25 21:02 Trileptal) Assessment & Plan Assessment & Plan (1) Schizophrenia: Qualifiers: Schizophrenia type: unspecified Qualified Code(s): F20.9 - Schizophrenia, unspecified Status: Acute Code(s): F20.9 - Schizophrenia, unspecified (2) Cannabis use disorder: Status: Acute Code(s): F12.90 - Cannabis use, unspecified, uncomplicated Plan 25 yo male, history of schizophrenia, to ER with report of auditory perceptual alterations occurring for the past week. Recent M5 admit 04/10-04/20. Denied SI, HI, VH. Pt prior to admit has been noncompliant with medicine. He has a history of substance use and we were informed that family had considered Section 35 in the past. Toxicology positive for cannabis on admit. Pt reports sleep interruption with latency sx and THOMAS and poor appetite. He also reports an increase in anxiety and is willing to trial a mood stabilizer for sx mgt of anxiety. He remains homeless, reports he has been sleeping outside in [place] and is willing to look at some retirement options. Discussed changing Risperdal to MURRAY which he declines at this time. 05/11: Continue tx. Encouarge both Risperdal and Trileptal compliance 05/12/25: Patient slept 7 hours but suspect not want to taking Trileptap as nursing report patient displaced some behavior that suspected not wanting to take meds- dropped meds on the floor. Patient took this morning dose. However, nursing report that patient experience pink rash on the body with itchy feeling. Ordered benadryl 25mg x1 and hold Trileptal until this provider can physically can face to face assess patient tomorrow. Patient expressed wanting to to take Risperidone again. Denies SI/SIB/HI/AVH, anxiety or depression, appear to minimize symptoms as he appears to be preoccupied. Continue with treatment plan. will hold Trileptal tonight dose until able to do face to face assesment. Continue to encourage medication compliant and consistent. 05/13/25: Patient slept for 8 hours, was compliant with medications. Assess patient [id number] regarding the rash that started yesterday per nursing reports. Rash observed on bilateral arms and legs, more prominence on the legs than the upper arms. Suspected from the Trileptal. Therefore it is discontinued. . Patient reports still feeling itchy from the rash. No rash on the trunk or in the back. Encourage patient to continue taking risperidone which he has been in the past couple of days. Patient denies safety concerns or hallucinations. However, he appears to be preoccupied, superficial. Observe visible but isolated to himself, doing some pushups in room. No behavior issues. Benadryl 25mg q6hr PRN for itching Discontinue Trileptal and added to allergy list. 05/14 denies AH and paranoid ideations (and no paranoid ideations expressed). Discussed MURRAY and pt says no thank you... and that he changed his mind and just wants to take the pills by mouth; he says he has no hx of not taking medications in the community and that he always takes them..Denies depression or SI/HI. -says sleeping well Pt at baseline; in good behavioral/impulse control Plan: Admit to M5, CV, 15 minute checks Collateral Contacts Diagnostics as needed Continue regime DC'd Trileptal d/t possibe rash side effects. Discontinue Trleptal. Encourage full milieu Discharge planning Patient educated on: diagnosis and medication risk/benefits Informed Consent: understands and further education needed Reason for continued inpatient stay Substantial Risk for: stable for discharge Time Spent With Patient Time: Total time managing care of this patient today ____ minutes.
[2025-05-14 20:00] VITALS: BP 133/74; PULSE 103; RESP 20; TEMP 36.9; O2SAT 97
[2025-05-15 08:00] VITALS: BP 137/83; PULSE 78; TEMP 36.6; O2SAT 99
--- NOTE | 2025-05-15 17:37 | HO.PSYCHPN ---
Subjective Subjective Date of Service: 05/15/25 Reason For Visit: Psychosis Interim History: Met with patient; discussed with team remains in good behavioral/impulse control. Denies AVH; denies depression and says in good mood. Focused on discharge planning. Discussed MRURAY again but not ready for it Mental Status Exam Mental Status Exam Narrative: Pt is alert and oriented; behavior is keeping to himself, but friendly and cooperative on approach; calm and in good behavioral/impulse control; patient is not in distress; dressed in casual attire with adequate hygiene and grooming; mood is described as good and affect blunted; eye contact appropriate; Speech is monotone; normal volume and prosody; no psychomotor agitation/retardation present; thought process is goal directed, concrete; Thought content is on discharge, treatment; otherwise pertinent to relevant topics and without any delusional content, paranoid ideations or grandiosity; denies any SI/HI. Denies AVH; no real thought blocking; maybe a little internally preoccupied. Patients insight and judgment fair. Diagnostics Vital Signs (24Hr): Vital Signs - 24 hr 05/14/25 20:00 05/15/25 08:00 Temperature 98.4 F 97.8 F Pulse Rate 103 H 78 Respiratory Rate 20 Blood Pressure 133/74 137/83 Pulse Oximetry 97 99 Oxygen Delivery Method Room Air Room Air BMI result Body Mass Index 27.0 Labs 05/08/25 12:40 05/14/25 08:36 Labs: Laboratory Results - last 48 hr 05/14/25 08:36 Sodium 139 Potassium 4.5 Chloride 104 Carbon Dioxide 25 Anion Gap 15 BUN 29 H Creatinine 0.83 Estim Creat Clear Calc 136.0 Estimated GFR > 60 Random Glucose 93 Estimat Average Glucose 111 Hemoglobin A1c % 5.5 Calcium 8.8 Total Bilirubin 0.2 AST 35 ALT 47 H Alkaline Phosphatase 62 Total Protein 6.6 Albumin 4.6 Triglycerides 121 Cholesterol 167 LDL Cholesterol, Calc 84 HDL Cholesterol 59 Medications Medications Current Medications Acetaminophen (Acetaminophen 325 Mg Tablet) 650 mg PO Q6H PRN PRN Reason: Headache/Pain, Scale 1-10 Al Hydroxide/Mg Hydroxide (Magnesium Hydrox/Alum Hydrox 30 Ml Oral.Susp) 30 ml PO Q6H PRN PRN Reason: Heartburn/Nausea Diphenhydramine HCl (Diphenhydramine Hcl 25 Mg Capsule) 25 mg PO Q6H PRN PRN Reason: Itching Last Admin: 05/14/25 21:47 Dose: 25 mg Hydroxyzine HCl (Hydroxyzine Hcl 25 Mg Tablet) 25 mg PO Q6H PRN PRN Reason: mild anxiety Last Admin: 05/14/25 21:47 Dose: 25 mg Magnesium Hydroxide (Milk Of Magnesia 30 Ml Oral.Susp) 30 ml PO DAILY PRN PRN Reason: Constipation Last Admin: 05/12/25 15:38 Dose: 30 ml Nicotine (Nicotine 21 Mg Patch.Td24) 21 mg TRANSDERMA DAILY PRN PRN Reason: smoking cessation Olanzapine (Olanzapine 5 Mg Tablet) 5 mg PO TID PRN PRN Reason: agitation Risperidone (Risperidone 3 Mg Tablet) 6 mg PO BEDTIME RIKKI Last Admin: 05/14/25 21:46 Dose: 6 mg Trazodone HCl (Trazodone Hcl 50 Mg Tablet) 50 mg PO BEDTIME MRX1 PRN PRN Reason: Insomnia Allergies Allergies Allergy/AdvReac Type Severity Reaction Status Date / Time peanut Allergy Hives Verified 05/08/25 12:02 seafood Allergy Unknown Verified 05/08/25 12:02 shellfish derived (shellfish) Allergy Unknown Verified 05/08/25 12:02 oxcarbazepine (From AdvReac Intermediate Rash Verified 05/13/25 21:02 Trileptal) Assessment & Plan Assessment & Plan (1) Schizophrenia: Qualifiers: Schizophrenia type: unspecified Qualified Code(s): F20.9 - Schizophrenia, unspecified Status: Acute Code(s): F20.9 - Schizophrenia, unspecified (2) Cannabis use disorder: Status: Acute Code(s): F12.90 - Cannabis use, unspecified, uncomplicated (3) Homeless: Status: Acute Code(s): Z59.00 - Homelessness unspecified (4) Anoxic brain injury: Status: Acute Code(s): G93.1 - Anoxic brain damage, not elsewhere classified Plan 25 yo male, history of schizophrenia, to ER with report of auditory perceptual alterations occurring for the past week. Recent M5 admit 04/10-04/20. Denied SI, HI, VH. Pt prior to admit has been noncompliant with medicine. He has a history of substance use and we were informed that family had considered Section 35 in the past. Toxicology positive for cannabis on admit. Pt reports sleep interruption with latency sx and THOMAS and poor appetite. He also reports an increase in anxiety and is willing to trial a mood stabilizer for sx mgt of anxiety. He remains homeless, reports he has been sleeping outside in [place] and is willing to look at some senior care options. Discussed changing Risperdal to MURRAY which he declines at this time. 05/11: Continue tx. Encouarge both Risperdal and Trileptal compliance 05/12/25: Patient slept 7 hours but suspect not want to taking Trileptap as nursing report patient displaced some behavior that suspected not wanting to take meds- dropped meds on the floor. Patient took this morning dose. However, nursing report that patient experience pink rash on the body with itchy feeling. Ordered benadryl 25mg x1 and hold Trileptal until this provider can physically can face to face assess patient tomorrow. Patient expressed wanting to to take Risperidone again. Denies SI/SIB/HI/AVH, anxiety or depression, appear to minimize symptoms as he appears to be preoccupied. Continue with treatment plan. will hold Trileptal tonight dose until able to do face to face assesment. Continue to encourage medication compliant and consistent. 05/13/25: Patient slept for 8 hours, was compliant with medications. Assess patient [id number] regarding the rash that started yesterday per nursing reports. Rash observed on bilateral arms and legs, more prominence on the legs than the upper arms. Suspected from the Trileptal. Therefore it is discontinued. . Patient reports still feeling itchy from the rash. No rash on the trunk or in the back. Encourage patient to continue taking risperidone which he has been in the past couple of days. Patient denies safety concerns or hallucinations. However, he appears to be preoccupied, superficial. Observe visible but isolated to himself, doing some pushups in room. No behavior issues. Benadryl 25mg q6hr PRN for itching Discontinue Trileptal and added to allergy list. 05/14 denies AH and paranoid ideations (and no paranoid ideations expressed). Discussed MURRAY and pt says no thank you... and that he changed his mind and just wants to take the pills by mouth; he says he has no hx of not taking medications in the community and that he always takes them..Denies depression or SI/HI. -says sleeping well 05/15 remains stable; continue ctp; SW learned history of anoxic brain injury at , IEP in school Pt at baseline; in good behavioral/impulse control; appropriate with peers and staff Plan: Admit to M5, CV, 15 minute checks Collateral Contacts Diagnostics as needed Continue regime DC'd Trileptal d/t possibe rash side effects. Discontinue Trleptal. Encourage full milieu Discharge planning Patient educated on: diagnosis and therapeutic strategies Informed Consent: understands Reason for continued inpatient stay Substantial Risk for: stable for discharge Time Spent With Patient Time: Total time managing care of this patient today ____ minutes.
[2025-05-15 20:00] VITALS: BP 142/80; PULSE 93; RESP 18; TEMP 36.8; O2SAT 98
[2025-05-16 08:07] VITALS: BP 132/81; PULSE 80; RESP 16; TEMP 36.8; O2SAT 99
[2025-05-16] MEDS: Milk of Magnesia 30 ML ORAL.SUSP PO (08:09)
--- NOTE | 2025-05-16 09:53 | HO.PSYCHPN ---
Subjective Subjective Date of Service: 05/16/25 Reason For Visit: Psychosis Interim History: met with patient; discussed with team no change in presentation; discussing aftercare. Discussed MURRAY and pt does not want Mental Status Exam Mental Status Exam Narrative: Pt is alert and oriented; behavior is keeping to himself, but friendly and cooperative on approach; calm and in good behavioral/impulse control; patient is not in distress; dressed in casual attire with adequate hygiene and grooming; mood is described as good and affect blunted; eye contact appropriate; Speech is monotone; normal volume and prosody; no psychomotor agitation/retardation present; thought process is goal directed, concrete; Thought content is on discharge, treatment; otherwise pertinent to relevant topics and without any delusional content, paranoid ideations or grandiosity; denies any SI/HI. Denies AVH; no real thought blocking; maybe a little internally preoccupied. Patients insight and judgment fair. Diagnostics Vital Signs (24Hr): Vital Signs - 24 hr 05/15/25 20:00 05/16/25 08:07 Temperature 98.2 F 98.3 F Pulse Rate 93 80 Respiratory Rate 18 16 Blood Pressure 142/80 H 132/81 Pulse Oximetry 98 99 Oxygen Delivery Method Room Air Room Air BMI result Body Mass Index 27.0 Labs 05/08/25 12:40 05/14/25 08:36 Medications Medications Current Medications Acetaminophen (Acetaminophen 325 Mg Tablet) 650 mg PO Q6H PRN PRN Reason: Headache/Pain, Scale 1-10 Al Hydroxide/Mg Hydroxide (Magnesium Hydrox/Alum Hydrox 30 Ml Oral.Susp) 30 ml PO Q6H PRN PRN Reason: Heartburn/Nausea Diphenhydramine HCl (Diphenhydramine Hcl 25 Mg Capsule) 25 mg PO Q6H PRN PRN Reason: Itching Last Admin: 05/14/25 21:47 Dose: 25 mg Hydroxyzine HCl (Hydroxyzine Hcl 25 Mg Tablet) 25 mg PO Q6H PRN PRN Reason: mild anxiety Last Admin: 05/14/25 21:47 Dose: 25 mg Magnesium Hydroxide (Milk Of Magnesia 30 Ml Oral.Susp) 30 ml PO DAILY PRN PRN Reason: Constipation Last Admin: 05/16/25 08:09 Dose: 30 ml Nicotine (Nicotine 21 Mg Patch.Td24) 21 mg TRANSDERMA DAILY PRN PRN Reason: smoking cessation Olanzapine (Olanzapine 5 Mg Tablet) 5 mg PO TID PRN PRN Reason: agitation Risperidone (Risperidone 3 Mg Tablet) 6 mg PO BEDTIME RIKKI Last Admin: 05/15/25 20:27 Dose: 6 mg Trazodone HCl (Trazodone Hcl 50 Mg Tablet) 50 mg PO BEDTIME MRX1 PRN PRN Reason: Insomnia Allergies Allergies Allergy/AdvReac Type Severity Reaction Status Date / Time peanut Allergy Hives Verified 05/08/25 12:02 seafood Allergy Unknown Verified 05/08/25 12:02 shellfish derived (shellfish) Allergy Unknown Verified 05/08/25 12:02 oxcarbazepine (From AdvReac Intermediate Rash Verified 05/13/25 21:02 Trileptal) Assessment & Plan Assessment & Plan (1) Schizophrenia: Qualifiers: Schizophrenia type: unspecified Qualified Code(s): F20.9 - Schizophrenia, unspecified Status: Acute Code(s): F20.9 - Schizophrenia, unspecified (2) Cannabis use disorder: Status: Acute Code(s): F12.90 - Cannabis use, unspecified, uncomplicated (3) Homeless: Status: Acute Code(s): Z59.00 - Homelessness unspecified (4) Brain injury: Status: Acute Code(s): S06.9XAA - Unspecified intracranial injury with loss of consciousness status unknown, initial encounter Plan 25 yo male, history of schizophrenia, to ER with report of auditory perceptual alterations occurring for the past week. Recent M5 admit 04/10-04/20. Denied SI, HI, VH. Pt prior to admit has been noncompliant with medicine. He has a history of substance use and we were informed that family had considered Section 35 in the past. Toxicology positive for cannabis on admit. Pt reports sleep interruption with latency sx and THOMAS and poor appetite. He also reports an increase in anxiety and is willing to trial a mood stabilizer for sx mgt of anxiety. He remains homeless, reports he has been sleeping outside in [place] and is willing to look at some care home options. Discussed changing Risperdal to MURRAY which he declines at this time. 05/11: Continue tx. Encouarge both Risperdal and Trileptal compliance 05/12/25: Patient slept 7 hours but suspect not want to taking Trileptap as nursing report patient displaced some behavior that suspected not wanting to take meds- dropped meds on the floor. Patient took this morning dose. However, nursing report that patient experience pink rash on the body with itchy feeling. Ordered benadryl 25mg x1 and hold Trileptal until this provider can physically can face to face assess patient tomorrow. Patient expressed wanting to to take Risperidone again. Denies SI/SIB/HI/AVH, anxiety or depression, appear to minimize symptoms as he appears to be preoccupied. Continue with treatment plan. will hold Trileptal tonight dose until able to do face to face assesment. Continue to encourage medication compliant and consistent. 05/13/25: Patient slept for 8 hours, was compliant with medications. Assess patient [id number] regarding the rash that started yesterday per nursing reports. Rash observed on bilateral arms and legs, more prominence on the legs than the upper arms. Suspected from the Trileptal. Therefore it is discontinued. . Patient reports still feeling itchy from the rash. No rash on the trunk or in the back. Encourage patient to continue taking risperidone which he has been in the past couple of days. Patient denies safety concerns or hallucinations. However, he appears to be preoccupied, superficial. Observe visible but isolated to himself, doing some pushups in room. No behavior issues. Benadryl 25mg q6hr PRN for itching Discontinue Trileptal and added to allergy list. 05/14 denies AH and paranoid ideations (and no paranoid ideations expressed). Discussed MURRAY and pt says no thank you... and that he changed his mind and just wants to take the pills by mouth; he says he has no hx of not taking medications in the community and that he always takes them..Denies depression or SI/HI. -says sleeping well 05/15 remains stable; continue ctp; SW learned history of brain injury at , IEP in school 05/16 CTP Pt at baseline; in good behavioral/impulse control; appropriate with peers and staff Plan: Admit to M5, CV, 15 minute checks Collateral Contacts Diagnostics as needed Continue regime DC'd Trileptal d/t possibe rash side effects. Discontinue Trleptal. Encourage full milieu Discharge planning Patient educated on: diagnosis and medication risk/benefits Informed Consent: understands, does not understand and further education needed Reason for continued inpatient stay Substantial Risk for: stable for discharge Time Spent With Patient Time: Total time managing care of this patient today ____ minutes.
[2025-05-16 20:00] VITALS: BP 130/70; PULSE 112; RESP 20; TEMP 37; O2SAT 98
[2025-05-17 08:55] VITALS: BP 133/63; PULSE 85; RESP 16; TEMP 36.9; O2SAT 99
--- NOTE | 2025-05-17 09:16 | P.PNPSI_ITS ---
Subjective Subjective Date of Service: 05/17/25 Reason For Visit: Psychosis Interim History: Met with patient; discussed with team Patient continues to deny psychiatric symptoms, wants no change in medications; no change in presentation Mental Status Exam Mental Status Exam Narrative: Pt is alert and oriented; behavior is keeping to himself, but friendly and cooperative on approach; calm and in good behavioral/impulse control; patient is not in distress; dressed in casual attire with adequate hygiene and grooming; mood is described as good and affect blunted; eye contact appropriate; Speech is monotone; normal volume and prosody; no psychomotor agitation/retardation present; thought process is goal directed, concrete; Thought content is on discharge, treatment; otherwise pertinent to relevant topics and without any delusional content, paranoid ideations or grandiosity; denies any SI/HI. Denies AVH; no real thought blocking; maybe a little internally preoccupied. Patients insight and judgment fair. Diagnostics Vital Signs (24Hr): Vital Signs - 24 hr 05/16/25 20:00 Temperature 98.6 F Pulse Rate 112 H Respiratory Rate 20 Blood Pressure 130/70 Pulse Oximetry 98 Oxygen Delivery Method Room Air BMI result Body Mass Index 27.0 Labs 05/08/25 12:40 05/14/25 08:36 Medications Medications Current Medications Acetaminophen (Acetaminophen 325 Mg Tablet) 650 mg PO Q6H PRN PRN Reason: Headache/Pain, Scale 1-10 Last Admin: 05/16/25 15:46 Dose: 650 mg Al Hydroxide/Mg Hydroxide (Magnesium Hydrox/Alum Hydrox 30 Ml Oral.Susp) 30 ml PO Q6H PRN PRN Reason: Heartburn/Nausea Diphenhydramine HCl (Diphenhydramine Hcl 25 Mg Capsule) 25 mg PO Q6H PRN PRN Reason: Itching Last Admin: 05/14/25 21:47 Dose: 25 mg Hydroxyzine HCl (Hydroxyzine Hcl 25 Mg Tablet) 25 mg PO Q6H PRN PRN Reason: mild anxiety Last Admin: 05/14/25 21:47 Dose: 25 mg Magnesium Hydroxide (Milk Of Magnesia 30 Ml Oral.Susp) 30 ml PO DAILY PRN PRN Reason: Constipation Last Admin: 05/16/25 08:09 Dose: 30 ml Nicotine (Nicotine 21 Mg Patch.Td24) 21 mg TRANSDERMA DAILY PRN PRN Reason: smoking cessation Olanzapine (Olanzapine 5 Mg Tablet) 5 mg PO TID PRN PRN Reason: agitation Polyethylene Glycol (Polyethylene Glycol 3350 17 Gm Powd.Pack) 17 gm PO DAILY RIKKI Last Admin: 05/17/25 08:55 Dose: 17 gm Risperidone (Risperidone 3 Mg Tablet) 6 mg PO BEDTIME RIKKI Last Admin: 05/16/25 20:51 Dose: 6 mg Trazodone HCl (Trazodone Hcl 50 Mg Tablet) 50 mg PO BEDTIME MRX1 PRN PRN Reason: Insomnia Allergies Allergies Allergy/AdvReac Type Severity Reaction Status Date / Time peanut Allergy Hives Verified 05/08/25 12:02 seafood Allergy Unknown Verified 05/08/25 12:02 shellfish derived (shellfish) Allergy Unknown Verified 05/08/25 12:02 oxcarbazepine (From AdvReac Intermediate Rash Verified 05/13/25 21:02 Trileptal) Assessment & Plan Assessment & Plan (1) Schizophrenia: Qualifiers: Schizophrenia type: unspecified Qualified Code(s): F20.9 - Schizophrenia, unspecified Status: Acute Code(s): F20.9 - Schizophrenia, unspecified (2) Cannabis use disorder: Status: Acute Code(s): F12.90 - Cannabis use, unspecified, uncomplicated (3) Homeless: Status: Acute Code(s): Z59.00 - Homelessness unspecified (4) Anoxic brain injury: Status: Acute Code(s): G93.1 - Anoxic brain damage, not elsewhere classified Plan 25 yo male, history of schizophrenia, to ER with report of auditory perceptual alterations occurring for the past week. Recent M5 admit 04/10-04/20. Denied SI, HI, VH. Pt prior to admit has been noncompliant with medicine. He has a history of substance use and we were informed that family had considered Section 35 in the past. Toxicology positive for cannabis on admit. Pt reports sleep interruption with latency sx and THOMAS and poor appetite. He also reports an increase in anxiety and is willing to trial a mood stabilizer for sx mgt of anxiety. He remains homeless, reports he has been sleeping outside in [place] and is willing to look at some intermediate options. Discussed changing Risperdal to MURRAY which he declines at this time. 05/11: Continue tx. Encouarge both Risperdal and Trileptal compliance 05/12/25: Patient slept 7 hours but suspect not want to taking Trileptap as nursing report patient displaced some behavior that suspected not wanting to take meds- dropped meds on the floor. Patient took this morning dose. However, nursing report that patient experience pink rash on the body with itchy feeling. Ordered benadryl 25mg x1 and hold Trileptal until this provider can physically can face to face assess patient tomorrow. Patient expressed wanting to to take Risperidone again. Denies SI/SIB/HI/AVH, anxiety or depression, appear to minimize symptoms as he appears to be preoccupied. Continue with treatment plan. will hold Trileptal tonight dose until able to do face to face assesment. Continue to encourage medication compliant and consistent. 05/13/25: Patient slept for 8 hours, was compliant with medications. Assess patient [id number] regarding the rash that started yesterday per nursing reports. Rash observed on bilateral arms and legs, more prominence on the legs than the upper arms. Suspected from the Trileptal. Therefore it is discontinued. . Patient reports still feeling itchy from the rash. No rash on the trunk or in the back. Encourage patient to continue taking risperidone which he has been in the past couple of days. Patient denies safety concerns or hallucinations. However, he appears to be preoccupied, superficial. Observe visible but isolated to himself, doing some pushups in room. No behavior issues. Benadryl 25mg q6hr PRN for itching Discontinue Trileptal and added to allergy list. 05/14 denies AH and paranoid ideations (and no paranoid ideations expressed). Discussed MURRAY and pt says no thank you... and that he changed his mind and just wants to take the pills by mouth; he says he has no hx of not taking medications in the community and that he always takes them..Denies depression or SI/HI. -says sleeping well 05/15 remains stable; continue ctp; SW learned history of brain injury at , IEP in school 05/16 CTP 05/17 continue treatment plan Pt at baseline; in good behavioral/impulse control; appropriate with peers and staff Plan: Admit to M5, CV, 15 minute checks Collateral Contacts Diagnostics as needed Continue regime DC'd Trileptal d/t possibe rash side effects. Discontinue Trleptal. Encourage full milieu Discharge planning Patient educated on: diagnosis and medication risk/benefits Informed Consent: understands, does not understand and further education needed Reason for continued inpatient stay Substantial Risk for: stable for discharge Time Spent With Patient Time: Total time managing care of this patient today ____ minutes.
[2025-05-17 20:00] VITALS: BP 129/58; PULSE 112; RESP 20; TEMP 37.1; O2SAT 97
[2025-05-18 08:08] VITALS: BP 134/97; PULSE 98; TEMP 36.6; O2SAT 98
--- NOTE | 2025-05-19 00:20 | HO.PSYCHPN ---
Subjective Subjective Date of Service: 05/18/25 Reason For Visit: Psychosis Interim History: Met with patient; discussed with team Patient continues to deny any psychiatric symptoms. Discussed added ADHD medication which he had been on in the past however he does not want it now. Discussed relationship with his mother and he says he does not trust her that she does not seem to be reliable Mental Status Exam Mental Status Exam Narrative: Pt is alert and oriented; behavior is keeping to himself, but friendly and cooperative on approach; calm and in good behavioral/impulse control; patient is not in distress; dressed in casual attire with adequate hygiene and grooming; mood is described as good and affect blunted; eye contact appropriate; Speech is monotone; normal volume and prosody; no psychomotor agitation/retardation present; thought process is goal directed, concrete; Thought content is on discharge, treatment; otherwise pertinent to relevant topics and without any delusional content, paranoid ideations or grandiosity; denies any SI/HI. Denies AVH; no real thought blocking; maybe a little internally preoccupied. Patients insight and judgment fair. Diagnostics Vital Signs (24Hr): Vital Signs - 24 hr 05/18/25 08:08 Temperature 97.8 F Pulse Rate 98 Blood Pressure 134/97 H Pulse Oximetry 98 Oxygen Delivery Method Room Air BMI result Body Mass Index 27.0 Labs 05/08/25 12:40 05/14/25 08:36 Medications Medications Current Medications Acetaminophen (Acetaminophen 325 Mg Tablet) 650 mg PO Q6H PRN PRN Reason: Headache/Pain, Scale 1-10 Last Admin: 05/18/25 22:03 Dose: 650 mg Al Hydroxide/Mg Hydroxide (Magnesium Hydrox/Alum Hydrox 30 Ml Oral.Susp) 30 ml PO Q6H PRN PRN Reason: Heartburn/Nausea Diphenhydramine HCl (Diphenhydramine Hcl 25 Mg Capsule) 25 mg PO Q6H PRN PRN Reason: Itching Last Admin: 05/14/25 21:47 Dose: 25 mg Hydroxyzine HCl (Hydroxyzine Hcl 25 Mg Tablet) 25 mg PO Q6H PRN PRN Reason: mild anxiety Last Admin: 05/14/25 21:47 Dose: 25 mg Magnesium Hydroxide (Milk Of Magnesia 30 Ml Oral.Susp) 30 ml PO DAILY PRN PRN Reason: Constipation Last Admin: 05/16/25 08:09 Dose: 30 ml Nicotine (Nicotine 21 Mg Patch.Td24) 21 mg TRANSDERMA DAILY PRN PRN Reason: smoking cessation Olanzapine (Olanzapine 5 Mg Tablet) 5 mg PO TID PRN PRN Reason: agitation Polyethylene Glycol (Polyethylene Glycol 3350 17 Gm Powd.Pack) 17 gm PO DAILY RIKKI Last Admin: 05/18/25 09:06 Dose: 17 gm Risperidone (Risperidone 3 Mg Tablet) 6 mg PO BEDTIME RIKKI Last Admin: 05/18/25 20:44 Dose: 6 mg Trazodone HCl (Trazodone Hcl 50 Mg Tablet) 50 mg PO BEDTIME MRX1 PRN PRN Reason: Insomnia Allergies Allergies Allergy/AdvReac Type Severity Reaction Status Date / Time peanut Allergy Hives Verified 05/08/25 12:02 seafood Allergy Unknown Verified 05/08/25 12:02 shellfish derived (shellfish) Allergy Unknown Verified 05/08/25 12:02 oxcarbazepine (From AdvReac Intermediate Rash Verified 05/13/25 21:02 Trileptal) Assessment & Plan Assessment & Plan (1) Schizophrenia: Qualifiers: Schizophrenia type: unspecified Qualified Code(s): F20.9 - Schizophrenia, unspecified Status: Acute Code(s): F20.9 - Schizophrenia, unspecified (2) Cannabis use disorder: Status: Acute Code(s): F12.90 - Cannabis use, unspecified, uncomplicated (3) Homeless: Status: Acute Code(s): Z59.00 - Homelessness unspecified (4) Anoxic brain injury: Status: Acute Code(s): G93.1 - Anoxic brain damage, not elsewhere classified Plan 25 yo male, history of schizophrenia, to ER with report of auditory perceptual alterations occurring for the past week. Recent M5 admit 04/10-04/20. Denied SI, HI, VH. Pt prior to admit has been noncompliant with medicine. He has a history of substance use and we were informed that family had considered Section 35 in the past. Toxicology positive for cannabis on admit. Pt reports sleep interruption with latency sx and THOMAS and poor appetite. He also reports an increase in anxiety and is willing to trial a mood stabilizer for sx mgt of anxiety. He remains homeless, reports he has been sleeping outside in [place] and is willing to look at some [place] [facility]. Discussed changing Risperdal to MURRAY which he declines at this time. 05/11: Continue tx. Encouarge both Risperdal and Trileptal compliance 05/12/25: Patient slept 7 hours but suspect not want to taking Trileptap as nursing report patient displaced some behavior that suspected not wanting to take meds- dropped meds on the floor. Patient took this morning dose. However, nursing report that patient experience pink rash on the body with itchy feeling. Ordered benadryl 25mg x1 and hold Trileptal until this provider can physically can face to face assess patient tomorrow. Patient expressed wanting to to take Risperidone again. Denies SI/SIB/HI/AVH, anxiety or depression, appear to minimize symptoms as he appears to be preoccupied. Continue with treatment plan. will hold Trileptal tonight dose until able to do face to face assesment. Continue to encourage medication compliant and consistent. 05/13/25: Patient slept for 8 hours, was compliant with medications. Assess patient [id number] regarding the rash that started yesterday per nursing reports. Rash observed on bilateral arms and legs, more prominence on the legs than the upper arms. Suspected from the Trileptal. Therefore it is discontinued. . Patient reports still feeling itchy from the rash. No rash on the trunk or in the back. Encourage patient to continue taking risperidone which he has been in the past couple of days. Patient denies safety concerns or hallucinations. However, he appears to be preoccupied, superficial. Observe visible but isolated to himself, doing some pushups in room. No behavior issues. Benadryl 25mg q6hr PRN for itching Discontinue Trileptal and added to allergy list. 05/14 denies AH and paranoid ideations (and no paranoid ideations expressed). Discussed MURRAY and pt says no thank you... and that he changed his mind and just wants to take the pills by mouth; he says he has no hx of not taking medications in the community and that he always takes them..Denies depression or SI/HI. -says sleeping well 05/15 remains stable; continue ctp; SW learned history of brain injury at , IEP in school 05/16 CTP 05/17 continue treatment plan 05/18 remains stable, good behavioral impulse control; at baseline; continue treatment plan Pt at baseline; in good behavioral/impulse control; appropriate with peers and staff Plan: Admit to M5, CV, 15 minute checks Collateral Contacts Diagnostics as needed Continue regime DC'd Trileptal d/t possibe rash side effects. Discontinue Trleptal. Encourage full milieu Discharge planning Patient educated on: diagnosis and medication risk/benefits Informed Consent: understands Reason for continued inpatient stay Substantial Risk for: stable for discharge Time Spent With Patient Time: Total time managing care of this patient today ____ minutes.
[2025-05-19 08:00] VITALS: BP 132/64; PULSE 113; TEMP 36.9; O2SAT 97
--- NOTE | 2025-05-19 09:27 | P.PNPSI_ITS ---
Subjective Subjective Date of Service: 05/19/25 Reason For Visit: Psychosis Interim History: met with patient; discussed with team; reviewed chart Patient reports he is doing good and he was more engaged today, asking development writer about whether or not he should moved to [place] where his friend is living and get a job there. Patient asked about how to think through the details of such a move. Rash observed, bilateral arms, calves and resolving Mental Status Exam Mental Status Exam Narrative: Pt is alert and oriented; behavior is keeping to himself, but friendly and cooperative on approach; calm and in good behavioral/impulse control; patient is not in distress; dressed in casual attire with adequate hygiene and grooming; mood is described as good and affect blunted; eye contact appropriate; Speech is monotone; normal volume and prosody; no psychomotor agitation/retardation present; thought process is goal directed, concrete; Thought content is on discharge, treatment; otherwise pertinent to relevant topics and without any delusional content, paranoid ideations or grandiosity; denies any SI/HI. Denies AVH; no thought blocking and does not seem particularly internally preoccupied. Patients insight and judgment fair. Diagnostics Vital Signs (24Hr): BMI result Body Mass Index 27.0 Labs 05/08/25 12:40 05/14/25 08:36 Medications Medications Current Medications Acetaminophen (Acetaminophen 325 Mg Tablet) 650 mg PO Q6H PRN PRN Reason: Headache/Pain, Scale 1-10 Last Admin: 05/18/25 22:03 Dose: 650 mg Al Hydroxide/Mg Hydroxide (Magnesium Hydrox/Alum Hydrox 30 Ml Oral.Susp) 30 ml PO Q6H PRN PRN Reason: Heartburn/Nausea Diphenhydramine HCl (Diphenhydramine Hcl 25 Mg Capsule) 25 mg PO Q6H PRN PRN Reason: Itching Last Admin: 05/14/25 21:47 Dose: 25 mg Hydroxyzine HCl (Hydroxyzine Hcl 25 Mg Tablet) 25 mg PO Q6H PRN PRN Reason: mild anxiety Last Admin: 05/14/25 21:47 Dose: 25 mg Magnesium Hydroxide (Milk Of Magnesia 30 Ml Oral.Susp) 30 ml PO DAILY PRN PRN Reason: Constipation Last Admin: 05/16/25 08:09 Dose: 30 ml Nicotine (Nicotine 21 Mg Patch.Td24) 21 mg TRANSDERMA DAILY PRN PRN Reason: smoking cessation Olanzapine (Olanzapine 5 Mg Tablet) 5 mg PO TID PRN PRN Reason: agitation Polyethylene Glycol (Polyethylene Glycol 3350 17 Gm Powd.Pack) 17 gm PO DAILY RIKKI Last Admin: 05/18/25 09:06 Dose: 17 gm Risperidone (Risperidone 3 Mg Tablet) 6 mg PO BEDTIME RIKKI Last Admin: 05/18/25 20:44 Dose: 6 mg Trazodone HCl (Trazodone Hcl 50 Mg Tablet) 50 mg PO BEDTIME MRX1 PRN PRN Reason: Insomnia Allergies Allergies Allergy/AdvReac Type Severity Reaction Status Date / Time peanut Allergy Hives Verified 05/08/25 12:02 seafood Allergy Unknown Verified 05/08/25 12:02 shellfish derived (shellfish) Allergy Unknown Verified 05/08/25 12:02 oxcarbazepine (From AdvReac Intermediate Rash Verified 05/13/25 21:02 Trileptal) Assessment & Plan Assessment & Plan (1) Schizophrenia: Qualifiers: Schizophrenia type: unspecified Qualified Code(s): F20.9 - Schizophrenia, unspecified Status: Acute Code(s): F20.9 - Schizophrenia, unspecified (2) Cannabis use disorder: Status: Acute Code(s): F12.90 - Cannabis use, unspecified, uncomplicated (3) Homeless: Status: Acute Code(s): Z59.00 - Homelessness unspecified (4) Anoxic brain injury: Status: Acute Code(s): G93.1 - Anoxic brain damage, not elsewhere classified Plan 25 yo male, history of schizophrenia, to ER with report of auditory perceptual alterations occurring for the past week. Recent M5 admit 04/10-04/20. Denied SI, HI, VH. Pt prior to admit has been noncompliant with medicine. He has a history of substance use and we were informed that family had considered Section 35 in the past. Toxicology positive for cannabis on admit. Pt reports sleep interruption with latency sx and THOMAS and poor appetite. He also reports an increase in anxiety and is willing to trial a mood stabilizer for sx mgt of anxiety. He remains homeless, reports he has been sleeping outside in [place] and is willing to look at some fci options. Discussed changing Risperdal to MURRAY which he declines at this time. 05/11: Continue tx. Encouarge both Risperdal and Trileptal compliance 05/12/25: Patient slept 7 hours but suspect not want to taking Trileptap as nursing report patient displaced some behavior that suspected not wanting to take meds- dropped meds on the floor. Patient took this morning dose. However, nursing report that patient experience pink rash on the body with itchy feeling. Ordered benadryl 25mg x1 and hold Trileptal until this provider can physically can face to face assess patient tomorrow. Patient expressed wanting to to take Risperidone again. Denies SI/SIB/HI/AVH, anxiety or depression, appear to minimize symptoms as he appears to be preoccupied. Continue with treatment plan. will hold Trileptal tonight dose until able to do face to face assesment. Continue to encourage medication compliant and consistent. 05/13/25: Patient slept for 8 hours, was compliant with medications. Assess patient [id number] regarding the rash that started yesterday per nursing reports. Rash observed on bilateral arms and legs, more prominence on the legs than the upper arms. Suspected from the Trileptal. Therefore it is discontinued. . Patient reports still feeling itchy from the rash. No rash on the trunk or in the back. Encourage patient to continue taking risperidone which he has been in the past couple of days. Patient denies safety concerns or hallucinations. However, he appears to be preoccupied, superficial. Observe visible but isolated to himself, doing some pushups in room. No behavior issues. Benadryl 25mg q6hr PRN for itching Discontinue Trileptal and added to allergy list. 05/14 denies AH and paranoid ideations (and no paranoid ideations expressed). Discussed MURRAY and pt says no thank you... and that he changed his mind and just wants to take the pills by mouth; he says he has no hx of not taking medications in the community and that he always takes them..Denies depression or SI/HI. -says sleeping well 05/15 remains stable; continue ctp; SW learned history of brain injury at , IEP in school 05/16 CTP 05/17 continue treatment plan 05/18 remains stable, good behavioral impulse control; at baseline; continue treatment plan 05/19 Patient reports he is doing good and he was more engaged today, asking development writer about whether or not he should moved to [place] where his friend is living and get a job there. Patient asked about how to think through the details of such a move. -Rash observed, bilateral arms, calves and resolving Pt at baseline; in good behavioral/impulse control; appropriate with peers and staff Plan: Admit to M5, CV, 15 minute checks Collateral Contacts Diagnostics as needed Continue regime DC'd Trileptal d/t possibe rash side effects. Discontinue Trleptal. Encourage full milieu Discharge planning Patient educated on: diagnosis Informed Consent: understands, does not understand and further education needed Reason for continued inpatient stay Substantial Risk for: stable for discharge Time Spent With Patient Time: Total time managing care of this patient today ____ minutes.
[2025-05-19 20:55] VITALS: BP 118/68; PULSE 112; RESP 18; TEMP 36.8; O2SAT 98
[2025-05-20 08:11] VITALS: BP 119/60; PULSE 81; TEMP 36.6; O2SAT 99
--- NOTE | 2025-05-20 12:40 | HO.PSYCHPN ---
Subjective Subjective Date of Service: 05/20/25 Reason For Visit: Psychosis Interim History: Met with patient; discussed with team Patient reports he is doing good and denies psychiatric symptoms. Remains stable, no complaints and no requests Mental Status Exam Mental Status Exam Narrative: Pt is alert and oriented; behavior is keeping to himself, but friendly and cooperative on approach; calm and in good behavioral/impulse control; patient is not in distress; dressed in casual attire with adequate hygiene and grooming; mood is described as good and affect blunted; eye contact appropriate; Speech is monotone; normal volume and prosody; no psychomotor agitation/retardation present; thought process is goal directed, concrete; Thought content is on discharge, treatment; otherwise pertinent to relevant topics and without any delusional content, paranoid ideations or grandiosity; denies any SI/HI. Denies AVH; no thought blocking and does not seem particularly internally preoccupied. Patients insight and judgment fair. Diagnostics Vital Signs (24Hr): Vital Signs - 24 hr 05/19/25 20:55 05/20/25 08:11 Temperature 98.2 F 97.8 F Pulse Rate 112 H 81 Respiratory Rate 18 Blood Pressure 118/68 119/60 Pulse Oximetry 98 99 Oxygen Delivery Method Room Air Room Air BMI result Body Mass Index 27.0 Labs 05/08/25 12:40 05/14/25 08:36 Medications Medications Current Medications Acetaminophen (Acetaminophen 325 Mg Tablet) 650 mg PO Q6H PRN PRN Reason: Headache/Pain, Scale 1-10 Last Admin: 05/18/25 22:03 Dose: 650 mg Al Hydroxide/Mg Hydroxide (Magnesium Hydrox/Alum Hydrox 30 Ml Oral.Susp) 30 ml PO Q6H PRN PRN Reason: Heartburn/Nausea Diphenhydramine HCl (Diphenhydramine Hcl 25 Mg Capsule) 25 mg PO Q6H PRN PRN Reason: Itching Last Admin: 05/14/25 21:47 Dose: 25 mg Hydroxyzine HCl (Hydroxyzine Hcl 25 Mg Tablet) 25 mg PO Q6H PRN PRN Reason: mild anxiety Last Admin: 05/14/25 21:47 Dose: 25 mg Magnesium Hydroxide (Milk Of Magnesia 30 Ml Oral.Susp) 30 ml PO DAILY PRN PRN Reason: Constipation Last Admin: 05/16/25 08:09 Dose: 30 ml Nicotine (Nicotine 21 Mg Patch.Td24) 21 mg TRANSDERMA DAILY PRN PRN Reason: smoking cessation Olanzapine (Olanzapine 5 Mg Tablet) 5 mg PO TID PRN PRN Reason: agitation Polyethylene Glycol (Polyethylene Glycol 3350 17 Gm Powd.Pack) 17 gm PO DAILY RIKKI Last Admin: 05/20/25 09:51 Dose: 17 gm Risperidone (Risperidone 3 Mg Tablet) 6 mg PO BEDTIME RIKKI Last Admin: 05/19/25 20:33 Dose: 6 mg Trazodone HCl (Trazodone Hcl 50 Mg Tablet) 50 mg PO BEDTIME MRX1 PRN PRN Reason: Insomnia Allergies Allergies Allergy/AdvReac Type Severity Reaction Status Date / Time peanut Allergy Hives Verified 05/08/25 12:02 seafood Allergy Unknown Verified 05/08/25 12:02 shellfish derived (shellfish) Allergy Unknown Verified 05/08/25 12:02 oxcarbazepine (From AdvReac Intermediate Rash Verified 05/13/25 21:02 Trileptal) Assessment & Plan Assessment & Plan (1) Schizophrenia: Qualifiers: Schizophrenia type: unspecified Qualified Code(s): F20.9 - Schizophrenia, unspecified Status: Acute Code(s): F20.9 - Schizophrenia, unspecified (2) Cannabis use disorder: Status: Acute Code(s): F12.90 - Cannabis use, unspecified, uncomplicated (3) Homeless: Status: Acute Code(s): Z59.00 - Homelessness unspecified (4) Anoxic brain injury: Status: Acute Code(s): G93.1 - Anoxic brain damage, not elsewhere classified Plan 25 yo male, history of schizophrenia, to ER with report of auditory perceptual alterations occurring for the past week. Recent M5 admit 04/10-04/20. Denied SI, HI, VH. Pt prior to admit has been noncompliant with medicine. He has a history of substance use and we were informed that family had considered Section 35 in the past. Toxicology positive for cannabis on admit. Pt reports sleep interruption with latency sx and THOMAS and poor appetite. He also reports an increase in anxiety and is willing to trial a mood stabilizer for sx mgt of anxiety. He remains homeless, reports he has been sleeping outside in [place] and is willing to look at some fpc options. Discussed changing Risperdal to MURRAY which he declines at this time. 05/11: Continue tx. Encouarge both Risperdal and Trileptal compliance 05/12/25: Patient slept 7 hours but suspect not want to taking Trileptap as nursing report patient displaced some behavior that suspected not wanting to take meds- dropped meds on the floor. Patient took this morning dose. However, nursing report that patient experience pink rash on the body with itchy feeling. Ordered benadryl 25mg x1 and hold Trileptal until this provider can physically can face to face assess patient tomorrow. Patient expressed wanting to to take Risperidone again. Denies SI/SIB/HI/AVH, anxiety or depression, appear to minimize symptoms as he appears to be preoccupied. Continue with treatment plan. will hold Trileptal tonight dose until able to do face to face assesment. Continue to encourage medication compliant and consistent. 05/13/25: Patient slept for 8 hours, was compliant with medications. Assess patient [id number] regarding the rash that started yesterday per nursing reports. Rash observed on bilateral arms and legs, more prominence on the legs than the upper arms. Suspected from the Trileptal. Therefore it is discontinued. . Patient reports still feeling itchy from the rash. No rash on the trunk or in the back. Encourage patient to continue taking risperidone which he has been in the past couple of days. Patient denies safety concerns or hallucinations. However, he appears to be preoccupied, superficial. Observe visible but isolated to himself, doing some pushups in room. No behavior issues. Benadryl 25mg q6hr PRN for itching Discontinue Trileptal and added to allergy list. 05/14 denies AH and paranoid ideations (and no paranoid ideations expressed). Discussed MURRAY and pt says no thank you... and that he changed his mind and just wants to take the pills by mouth; he says he has no hx of not taking medications in the community and that he always takes them..Denies depression or SI/HI. -says sleeping well 05/15 remains stable; continue ctp; SW learned history of brain injury at , IEP in school 05/16 CTP 05/17 continue treatment plan 05/18 remains stable, good behavioral impulse control; at baseline; continue treatment plan 05/19 Patient reports he is doing good and he was more engaged today, asking internal communications writer about whether or not he should moved to [place] where his friend is living and get a job there. Patient asked about how to think through the details of such a move. -Rash observed, bilateral arms, calves and resolving 05/20 remained stable, at baseline. In good behavioral and impulse control and appropriate with peers and staff Pt at baseline; in good behavioral/impulse control; appropriate with peers and staff Plan: Admit to M5, CV, 15 minute checks Collateral Contacts Diagnostics as needed Continue regime DC'd Trileptal d/t possibe rash side effects. Discontinue Trleptal. Encourage full milieu Discharge planning Patient educated on: diagnosis Informed Consent: understands Reason for continued inpatient stay Substantial Risk for: stable for discharge Time Spent With Patient Time: Total time managing care of this patient today ____ minutes.
[2025-05-20 20:00] VITALS: BP 140/90; PULSE 103; RESP 18; TEMP 36.9; O2SAT 98
[2025-05-21 08:00] VITALS: BP 143/67; PULSE 104; TEMP 36.4; O2SAT 98
--- NOTE | 2025-05-21 10:33 | P.DS_ITS ---
DS: Providers Provider Date of Service: 05/21/25 Date of admission: 05/09/25 11:45 Date of discharge: 05/21/25 Primary care physician: Unknown Physician Attending physician on discharge: Luis Alberto Chung DS: Diagnosis Discharge Diagnosis (1) Schizophrenia: Status: Acute (2) Cannabis use disorder: Status: Acute (3) Homeless: Status: Acute (4) Anoxic brain injury: Status: Acute DS: Medications Discharge Medications Home Medications: Previous Rx's ?Medication ?Instructions ?Recorded hydroxyzine pamoate 25 mg capsule 25 mg PO Q6H PRN anx iety 30 days 05/21/25 #60 caps nicotine (polacrilex) 4 mg gum 4 mg buccal Q2H PRN ruby otine 05/21/25 (Nicorette) cravings 30 days #100 ea polyethylene glycol 3350 17 gram 17 g PO DAILY PRN con stipation 30 05/21/25 oral powder packet days #30 ea risperidone 3 mg tablet 6 mg (2 x 3 mg) PO BEDTIME 3 0 days 05/21/25 #60 tabs Mental Status Exam Mental Status Exam Narrative: Pt is alert and oriented; behavior is keeping to himself, but friendly and cooperative on approach; calm and in good behavioral/impulse control; patient is not in distress; dressed in casual attire with adequate hygiene and grooming; mood is described as good and affect blunted; eye contact appropriate; Speech is monotone; normal volume and prosody; no psychomotor agitation/retardation present; thought process is goal directed, concrete; Thought content is on discharge, treatment; otherwise pertinent to relevant topics and without any delusional content, paranoid ideations or grandiosity; denies any SI/HI. Denies AVH; no thought blocking and does not seem particularly internally preoccupied. Patients insight and judgment fair. DS: Summary Hospital Course Hospital Course: HPI: 25 yo male, history of schizophrenia, anoxic brain injury () to ER with report of auditory perceptual alterations occurring for the past week. Recent M5 admit 04/10-04/20. Denied SI, HI, VH. Pt prior to admit has been noncompliant with medicine. He has a history of substance use and we were informed that family had considered Section 35 in the past. Toxicology positive for cannabis on admit. Pt reports sleep interruption with latency sx and THOMAS and poor appetite. He also reports an increase in anxiety and is willing to trial a mood stabilizer for sx mgt of anxiety. He remains homeless, reports he has been sleeping outside in [place] and is willing to look at some intermediate options. Discussed changing Risperdal to MURRAY which he declines at this time. 05/11: Continue tx. Encouarge both Risperdal and Trileptal compliance 05/12/25: Patient slept 7 hours but suspect not want to taking Trileptap as nursing report patient displaced some behavior that suspected not wanting to take meds- dropped meds on the floor. Patient took this morning dose. However, nursing report that patient experience pink rash on the body with itchy feeling. Ordered benadryl 25mg x1 and hold Trileptal until this provider can physically can face to face assess patient tomorrow. Patient expressed wanting to to take Risperidone again. Denies SI/SIB/HI/AVH, anxiety or depression, appear to minimize symptoms as he appears to be preoccupied. 05/13/25: Patient slept for 8 hours, was compliant with medications. Assess patient [id number] regarding the rash that started yesterday per nursing reports. Rash observed on bilateral arms and legs, more prominence on the legs than the upper arms. Suspected from the Trileptal. Therefore it is discontinued. . Patient reports still feeling itchy from the rash. No rash on the trunk or in the back. Encourage patient to continue taking risperidone which he has been in the past couple of days. Patient denies safety concerns or hallucinations. However, he appears to be preoccupied, superficial. Observe visible but isolated to himself, doing some pushups in room. No behavior issues. Benadryl 25mg q6hr PRN for itching Discontinue Trileptal and added to allergy list. Patient returned to baseline. He remained in good behavioral and impulse control throughout his admission; he mostly kept to himself but was otherwise appropriate with peers and staff; organized in speech and behavior. Pt was eating and sleeping well; he was in good mood, denied any SI and AH remained resolved. He remains vulnerable to medication non-adherence, especially as he refused MURRAY; this is a chronic struggle and now patient is a [facility] client improving his community support. Pt felt ready for discharge and plans to stay with a friend. He is not in imminent risk of harm to self or others and appropriate to return to the community for treatment. Medications: Risperdal 6mg qhs Time spent discussing smoking cessation with patient: 3 to 10 minutes Status at Discharge Functional status at discharge: independent ambulation Overall status at discharge: patient is back to baseline Time Spent with Patient Time attestation: Total time managing care of this patient today _40___ minutes. Time spent: Greater than 30 minutes Specific discharge activities: met with patient; discussed with team; scripts, charting Discharge Plan Discharge Anticipated Discharge Date/Time: 05/21/25 10:32 Patient Disposition: Intermediate Discharge Diagnosis: Schizophrenia Referrals: Physician,Alana J [Primary Care Provider, Medical] - 1 Week Discharge Medications: New polyethylene glycol 3350 17 gram Powder In Packet 17 g PO DAILY PRN (Reason: constipation) 30 Days Qty: 30 0RF nicotine (polacrilex) [Nicorette] 4 mg gum 4 mg buccal Q2H PRN (Reason: nicotine cravings) 30 Days Qty: 100 0RF Continued risperidone 3 mg tablet 6 mg PO BEDTIME 30 Days Qty: 60 1RF hydroxyzine pamoate 25 mg capsule 25 mg PO Q6H PRN (Reason: anxiety) 30 Days Qty: 60 1RF Discharge Orders: Discharge Order (Routine); Ordered 05/21/25 Ordered By: Luis Alberto Chung Diet: Regular diet Activity on Discharge: As tolerated Stand Alone Forms: Patient Portal Discharge page Print Language: Lao Care Plan Goals: Maintain mood and safe behaviors Take medications as prescribed Continue to pursue sobriety Practice coping skills Continue with outpatient providers and reach out to them as needed Health Concerns: Mood stability and behaviors Plan of Treatment: Follow up with your PCP, psychiatric provider and other outpatient providers regarding above concerns Take medications as prescribed Assessment: Risk assessment at time of discharge:? Patient was interviewed prior to discharge and found to be fully oriented and without any SI or HI. Patient has improved insight and judgment and wants to continue treatment. Patient is not in imminent risk of harm to self or others and has a safety plan that includes presenting to the closest ER or calling 911 if feeling unsafe.? Patient has been observed closely by nursing and unit staff throughout admission; patient has not engaged in any behaviors that suggest dangerousness to self or others and has demonstrated appropriate behaviors and impulse control
== END 2025-05-21 11:44 | disposition home or self-care (01) | DRG 885 ==
LOC: HO.ED 05-09 11:52 → HO.PM5 05-09 12:08
PROVIDERS: Physician Assistant Medical; Admitting Provider Psychiatry & Neurology Psychiatry; Emergency Provider Emergency Medicine; Visit Provider Psychiatry & Neurology Psychiatry
DX: F20.9 Schizophrenia, unspecified (principal); Z59.02 Unsheltered homelessness; G93.1 Anoxic brain damage, not elsewhere classified; F17.210 Nicotine dependence, cigarettes, uncomplicated; Z91.148 Patient's other noncompliance with medication regimen for other reason; Z71.6 Tobacco abuse counseling; Z79.899 Other long term (current) drug therapy
CPT/HCPCS: 36415; 80053; 80061; 80143; 80179; 80307; 81003; 83036; 85025; 93005; 99285; S9485

== ENCOUNTER → 2025-05-08 13:29 | Outpatient (BNV) | payer MEDICARE, MEDICAID, SELFPAY | PROVIDERS: Emergency Provider Emergency Medicine; Visit Provider Internal Medicine Cardiovascular Disease | DX: Z13.6 Encounter for screening for cardiovascular disorders (principal) | CPT/HCPCS: 93010 ==

== ENCOUNTER → 2025-05-09 11:45 | Outpatient (BNV) | payer MEDICARE, MEDICAID, SELFPAY | PROVIDERS: Admitting Provider Psychiatry & Neurology Psychiatry; Emergency Provider Emergency Medicine; Visit Provider Clinical Nurse Specialist Psychiatric/Mental Health, Adult | DX: F20.0 Paranoid schizophrenia (principal); F12.90 Cannabis use, unspecified, uncomplicated; Z59.00 Homelessness unspecified; G93.1 Anoxic brain damage, not elsewhere classified | CPT/HCPCS: 90792; 99231; 99232; 99239 ==

== ENCOUNTER → 2025-05-09 11:45 | Outpatient (BNV) | payer MEDICARE, MEDICAID, SELFPAY | PROVIDERS: Admitting Provider Psychiatry & Neurology Psychiatry; Emergency Provider Emergency Medicine; Visit Provider Nurse Practitioner Family | DX: F20.9 Schizophrenia, unspecified (principal) | CPT/HCPCS: 99221 ==

== ENCOUNTER 2025-06-25 19:16 | Inpatient (IN) | payer MEDICARE, MEDICAID, SELFPAY ==
[2025-06-25 19:42] VITALS: BP 126/61; PULSE 84; RESP 16; TEMP 36.7; O2SAT 95; BMI 32.2
--- NOTE | 2025-06-25 19:43 | ED.GENADULT ---
HPI - General Adult General Chief complaint: Psychiatric Symptoms Stated complaint: PSYCH EVAL, WANTS TO SPEAK TO SOMEONE Time Seen by Provider: 06/25/25 22:42 Source: patient Mode of arrival: ambulatory Limitations: no limitations History of Present Illness ED Provider: Dr. Jane Barnes HPI narrative: 25-year-old male with a history of housing insecurity, schizophrenia presenting with auditory hallucinations ongoing for ?a long time?. Patient states that he is currently homeless. Feels unsafe. Unable to elaborate further on this. Denies visual hallucinations. Denies drug or alcohol use. No thoughts of self-harm or of harming anyone else. Denies other illness including fever, cough or cold-type symptoms, nausea, vomiting, bowel changes, urinary complaints. Related Data Previous Rx's ?Medication ?Instructions ?Recorded hydroxyzine pamoate 25 mg capsule 25 mg PO Q6H PRN anxiety 30 days 05/21/25 #60 caps nicotine (polacrilex) 4 mg gum 4 mg buccal Q2H PRN nicotine 05/21/25 (Nicorette) cravings 30 days #100 ea polyethylene glycol 3350 17 gram 17 g PO DAILY PRN constipation 30 05/21/25 oral powder packet days #30 ea risperidone 3 mg tablet 6 mg (2 x 3 mg) PO BEDTIME 30 days 05/21/25 #60 tabs Allergies Allergy/AdvReac Type Severity Reaction Status Date / Time peanut Allergy Hives Verified 06/25/25 19:43 seafood Allergy Unknown Verified 06/25/25 19:43 shellfish derived (shellfish) Allergy Unknown Verified 06/25/25 19:43 oxcarbazepine (From AdvReac Intermediate Rash Verified 06/25/25 19:43 Trileptal) Review of Systems Review of Systems: as per HPI, full review of systems performed and negative but for the above mentioned pertinent positives and negatives. PMFSH Past Medical History Medical History Anoxic brain injury Homeless Cannabis use disorder Social History Social History Household Members: None Household Members Other:: unhoused Housing: Homeless Do you presently have visiting nurse or other home services: No Patient Tobacco Use Status: Current everyday Tobacco user Tobacco use type: Cigarette e-Cigarette/Vaping Use: Former Use Substance Use Type: Marijuana Advance Directives: No Advance Directives Information Provided: No Do you have a plan to hurt others: No Plan service: No Sexual orientation: Straight/Heterosexual Physical Exam ED Exam Exam: GENERAL: Unkempt, no acute distress. SKIN: Normal skin color for ethnicity, warm, dry, no rashes noted. HEENT:? Normocephalic, atraumatic, no stridor, posterior oropharynx nonerythematous, dentition intact, EOMI. NECK: Soft, supple, full ROM, midline structures nontender, no step-offs, no deformities, no lymphadenopathy. CHEST: Heart regular rate and rhythm, no murmurs, symmetric chest rise and fall. PULMONARY: Clear to auscultation bilaterally, no labored breathing, no wheezes/rhales/rhonchi. ABDOMINAL: Soft, nondistended, nontender, positive bowel sounds in all quadrants. : Deferred. MUSCULOSKELETAL: Normal tone, full range of motion, no deformities, no peripheral edema. NEURO: Alert and oriented x3, CN II through XII intact, equal strength and sensation bilateral upper and lower extremities, no focal neurologic deficits.? PSYCHIATRIC: Flat affect, aggressive eye contact, withdrawn Vital Signs: Vital Signs - 24 hr 06/25/25 19:42 06/26/25 06:00 06/26/25 08:10 Temperature 98.1 F 97.7 F Pulse Rate 84 79 Respiratory Rate 16 17 16 Blood Pressure 126/61 135/68 Pulse Oximetry 95 99 Oxygen Delivery Method Room Air Room Air BMI result Body Mass Index 32.2 Course Course Course Narrative: Rapid medical examination performed in triage by Lesly Heredia PA-C. Patient is a 25 year old assigned male at presenting to the emergency department with auditory hallucinations. Patient states that he is hearing voices and this has happened before. Patient denies any thoughts of hurting himself or others. Patient denies any visual hallucinations. Detailed physical exam and review of systems are deferred to the property management coordinator. Patient placed back in the waiting room pending room availability. Reevaluation(s) Reevaluation #1: Time: 06:34 Date: 06/26/25 Provider: Giuliano Morgan MD Patient in physician observation for psychiatric evaluation.? No acute events reported overnight. No current complaints. VS stable.? Patient is in bed search status/pending CARE team evaluation. Will continue to monitor. Reevaluation #2: 06/26/2025 12:56 patient will be admitted to the psychiatric unit this will end the ED observation status Time: 12:56 Medical Decision Making Medical Decision Making [facility] Narrative: Patient presents with psychologic complaints. Differential diagnosis includes suicidal ideations, homicidal ideations, depression, anxiety, mood disorder, decompensated mental illnesses such as schizophrenia or bipolar disorder, medication noncompliance, among many others. Medical clearance protocol was initiated. Differential Diagnosis Differential Diagnoses: The differential diagnosis associated with the presentation includes (as above) Admission/Observation Consideration of admission/observation: Escalation of care including admission/observation considered Consult Healthcare Provider Management of the patient was discussed with: Behavioral Health Provider Lab Data [facility] Lab Attestation statement: I reviewed the patient's lab results. 06/25/25 20:35 06/25/25 20:35 Labs: Lab Results 06/25/25 06/26/25 Range/Units 20:35 01:55 WBC 4.8 (4.8-10.8) X10*3/uL RBC 3.94 L (4.60-5.80) X10*6/uL Hgb 12.3 L (14.0-18.0) g/dl Hct 36.0 L (42.0-52.0) % MCV 91.4 (80.0-98.0) fL MCH 31.2 (27.0-33.0) pg MCHC 34.2 (31.0-36.0) g/dl RDW 13.6 (11.0-16.0) % Plt Count 258 (160-400) X10*3/uL MPV 9.6 (9.4-12.4) fL Immature Gran % (Auto) 0.4 (0.0-0.4) % Neut % (Auto) 33.2 L (45-73) % Lymph % (Auto) 43.9 H (20-40) % [place] % (Auto) 14.6 H (2-11) % Eos % (Auto) 7.3 H (0-4) % Baso % (Auto) 0.6 (0-2) % Lymph # (Auto) 2.1 (1.2-4.9) X10*3/uL [place] # (Auto) 0.7 (0.1-1.2) X10*3/uL Eos # (Auto) 0.4 (0.0-0.4) X10*3/uL Baso # (Auto) 0.0 (0.0-0.2) X10*3/uL Abs Immat Gran (auto) 0.02 (0.00-0.03) X10*3/uL Absolute Neuts (auto) 1.6 L (2.0-8.3) x10*3/uL Absolute Nucleated RBC 0.000 (0.0-0.012) X10*3/uL Nucleated RBC % (auto) 0.0 (0.0-0.2) /100WBC Sodium 140 (135-145) mmol/L Potassium 3.5 D (3.3-5.1) mmol/L Chloride 103 (96-108) mmol/L Carbon Dioxide 27 (22-29) mmol/L Anion Gap 14 (12-20) BUN 18 H (9-16) mg/dL Creatinine 1.00 (0.5-1.4) mg/dL Estim Creat Clear Calc 130.9 Estimated GFR > 60 Random Glucose 107 (60-115) mg/dL Calcium 9.3 (8.4-10.2) mg/dL Total Bilirubin 0.3 (0.0-1.0) mg/dL AST 54 H (5-37) U/L ALT 67 H (0-40) U/L Alkaline Phosphatase 69 (39-117) U/L Total Protein 7.0 (6.5-8.0) g/dL Albumin 4.8 (3.5-5.0) g/dL Urine Color Yellow Urine Appearance Clear Urine pH 6.5 (5.0-9.0) Ur Specific [place] 1.020 (1.005-1.025) Urine Protein Negative (Neg-Trace) mg/dL Urine Glucose (UA) Negative (Negative) mg/dL Urine Ketones Negative (Negative) mg/dL Urine Blood Negative (Negative) Urine Nitrite Negative (Negative) Ur Leukocyte Esterase Negative (Negative) Salicylates < 5.0 L (15-30) mg/dL Urine Opiates Screen Not Detected (Not Detect) Ur Buprenorphine Scrn Not Detected (Not Detect) ng/mL Ur Oxycodone Screen Not Detected (Not Detect) ng/mL Urine Methadone Screen Not Detected (Not Detect) ng/mL Urine Fentanyl Screen Not Detected (Not Detect) Acetaminophen < 3 (<30) mcg/mL Ur Barbiturates Screen Not Detected (Not Detect) Ur Phencyclidine Scrn Not Detected (Not Detect) Ur Amphetamines Screen Not Detected (Not Detect) U Benzodiazepines Scrn Not Detected (Not Detect) Urine Cocaine Screen Not Detected (Not Detect) U Marijuana (THC) Screen POSITIVE H (Not Detect) Ethyl Alcohol < 10 mg/dL External Record Review External record reviewed: Inpatient record Chronic Conditions Patient?s care impacted by: Other (Schizophrenia) Social Determinants Patient?s care significantly limited by Social Determinants of Health including: Inadequate housing, Problems related to primary support group and Other Social Determinant of Health Discharge Plan Discharge Clinical Impression: Auditory hallucinations, Housing insecurity Interventions: Sargent-Suicide Risk Severity Scale Last Done: 06/26/25 07:59 Admission Worksheet (ED) Last Done: 06/26/25 12:28
[2025-06-25 20:39] LABS: MANUAL DIFF FLAG NO
[2025-06-25 20:42] LABS: Hematocrit 36.0 % (42.0-52.0); Hemoglobin 12.3 g/dl (14.0-18.0); Imm Gran Abs Auto 0.02 X10*3/uL (0.00-0.03); Imm Gran Pct Auto 0.4 % (0.0-0.4); Lymphocytes Absolute Auto 2.1 X10*3/uL (1.2-4.9); Mean Corpuscular HGB Conc 34.2 g/dl (31.0-36.0); Mean Corpuscular Hemoglobin 31.2 pg (27.0-33.0); Mean Corpuscular Volume 91.4 fL (80.0-98.0); NRBC Abs Auto 0.000 X10*3/uL (0.0-0.012); NRBC Pct Auto 0.0 /100WBC (0.0-0.2); Platelet Count 258 X10*3/uL (160-400); Red Blood Count 3.94 X10*6/uL (4.60-5.80); White Blood Count 4.8 X10*3/uL (4.8-10.8)
[2025-06-25 20:54] LABS: Acetaminophen LAB < 3 mcg/mL (<30); Alanine Aminotransferase 67 U/L (0-40); Albumin Level 4.8 g/dL (3.5-5.0); Alkaline Phosphatase 69 U/L (39-117); Anion Gap 14 (12-20); Aspartate Amino Transferase 54 U/L (5-37); Blood Urea Nitrogen 18 mg/dL (9-16); Calcium 9.3 mg/dL (8.4-10.2); Carbon Dioxide 27 mmol/L (22-29); Chloride 103 mmol/L (96-108); Creatinine Clr Calc Pharmacy 130.9; Estimated Glomerular Filt Rate > 60; Potassium 3.5 mmol/L (3.3-5.1); Salicylate < 5.0 mg/dL (15-30); Sodium 140 mmol/L (135-145); Total Protein 7.0 g/dL (6.5-8.0)
--- NOTE | 2025-06-25 22:14 | PC.NURSE ---
Arrived to ED POD, wearing appropriate attire. Presents with intense stare and blunted affect. Speech is clear, but latent in response. Endorses command auditory hallucinations stating They are telling me I'm not safe here. Denies SI/HI/VH. Agreeable to alert staff if feeling unsafe. Denies alcohol or drug use. Patient provided with urine specimen cup, awaiting collection.
--- NOTE | 2025-06-25 22:49 | MHC.EDTECH ---
t/w asked pt to provide ua sample as pt was walking to the bathroom to use the bathroom, pt stated i don't need to right now. rn aware. will attempt to collect ua sample when pt goes to the bathroom againl.
[2025-06-26 02:05] LABS: Appearance Urine Clear; Glucose Urine UA Negative (Negative); PH 6.5 (5.0-9.0); Specific Gravity - Urine 1.020 (1.005-1.025)
[2025-06-26 02:15] LABS: Cannabinoid Screen Urine POSITIVE (Not Detect)
[2025-06-26 06:00] VITALS: RESP 17
--- NOTE | 2025-06-26 07:05 | PC.NURSE ---
Assumed care of pt. Pt is laying down with their eyes closed, no s/s of distress. RR even and unlabored.
[2025-06-26 08:10] VITALS: BP 135/68; PULSE 79; RESP 16; TEMP 36.5; O2SAT 99
--- NOTE | 2025-06-26 09:01 | ECG_ITS ---
Test Reason : check prolong qt Blood Pressure : */* mmHG Vent. Rate : 68 BPM Atrial Rate : 68 BPM P-R Int : 140 ms QRS Dur : 118 ms QT Int : 400 ms P-R-T Axes : 47 39 21 degrees QTcB Int : 425 ms Normal sinus rhythm Non-specific intra-ventricular conduction delay Borderline ECG When compared with ECG of 08-May-2025 13:50, No significant change was found Referred By: Jane Barnes Electronically Signed By: KARLIE ISSA
--- NOTE | 2025-06-26 12:34 | PC.NURSE ---
Report called to [facility] RN. Report accepted.
[2025-06-26 12:55] VITALS: BP 120/76; PULSE 72; TEMP 35.7; O2SAT 97
[2025-06-26 13:03] VITALS: BMI 30.9
--- NOTE | 2025-06-26 14:09 | PC.NURSE ---
Pt declined flu vaccine at this time
--- NOTE | 2025-06-26 14:16 | PC.ADMIT ---
Romeo is a 25-year-old male admitted from [facility] Pod to [facility] on a CV for treatment of schizophrenia. Tox screen positive for THC. Pt denies medical issues however crisis eval reports hx anoxic brain injury. Per crisis eval, pt presented to [facility] ED secondary to experiencing auditory hallucinations which made him feel unsafe and non-compliance with medications since being discharged from on 05/22/25. Pt stated he is homeless, not engaging with outpatient providers and endorsed poor sleep. Upon arrival to M3, pt was A&Ox4, pleasant and cooperative. Skin check unremarkable with the exception of dry bilateral feet. Pt was cooperative with admission process however was difficult to engage with and only answered questions with yes or no. Affect was blunted with monotone speech, eye contact was intermittent. Pt reported the reason for his admission was because I was feeling unsafe however pt now reports that he feels safe, denies SI/HI/AH/VH but will reach out to staff if thoughts occur. When RN asked what his goals were for admission, pt stated I'm not sure. Pt placed on 15 min safety checks.
[2025-06-26 20:09] VITALS: BP 117/65; PULSE 69; RESP 16; TEMP 36.1; O2SAT 96
[2025-06-27 07:56] LABS: Hemoglobin A1C 80.7013 umol/L; Total Hemoglobin (HGBA1C) 2501.0203 umol/L
[2025-06-27 08:00] VITALS: BP 130/73; PULSE 94; RESP 18; TEMP 36.6; O2SAT 98
[2025-06-27 08:03] LABS: Alanine Aminotransferase 55 U/L (0-40); Albumin Level 4.7 g/dL (3.5-5.0); Alkaline Phosphatase 69 U/L (39-117); Aspartate Amino Transferase 37 U/L (5-37); Blood Urea Nitrogen 22 mg/dL (9-16); Calcium 9.3 mg/dL (8.4-10.2); Cholesterol 196 mg/dL (<200); Creatinine Clr Calc Pharmacy 138.1; Estimated Glomerular Filt Rate > 60; HDL Cholesterol 62 mg/dL (>40); Total Protein 7.2 g/dL (6.5-8.0); Triglycerides 148 mg/dL (<150)
[2025-06-27 08:12] LABS: Anion Gap 16 (12-20); Carbon Dioxide 26 mmol/L (22-29); Chloride 105 mmol/L (96-108); Potassium 4.6 mmol/L (3.3-5.1); Sodium 142 mmol/L (135-145)
--- NOTE | 2025-06-27 08:45 | P.CONHOSP_ITS ---
History of Present Illness Data of Consult Service Date: 06/27/25 Primary Care Provider: PATRICIA Mendoza [facility] Reason for consult: Medical consult 25-year-old male with a history of anxiety, depression and schizophrenia presented to the ED with auditory hallucination. No leukocytosis, no anemia, no electrolyte imbalances no urinary tract infection, drug screen positive for cannabis, patient was medically cleared and admitted to inpatient level of care. On exam he has no medical complaints, denies any shortness of breath, dizziness, lightheadedness or any other concerning symptoms. His vitals are stable. Quiet and cooperative. Review of Systems 2 Review of Systems: Denies any shortness of breath, chest pain, dizziness, lightheadedness, abdominal pain or discomfort, nausea vomiting or diarrhea PMFSH Medical History Anoxic brain injury Homeless Cannabis use disorder Social History Household Members: None Household Members Other:: unhoused Housing: Homeless Do you presently have visiting nurse or other home services: No Patient Tobacco Use Status: Never used Tobacco Tobacco use type: Cigarette e-Cigarette/Vaping Use: Former Use Substance Use Type: Marijuana Currently Displaying Signs/Symptoms of Drug Intoxication Withdrawal: No Have you been hit, kicked, punched, or otherwise hurt by someone within the past year? If so, by whom?: No Do you feel safe in your current relationship?: No Current Relationship Is there a partner from a previous relationship who is making you feel unsafe now?: No Are you made to feel afraid or neglected: No Advance Directives: No Advance Directives Information Provided: No Do you have thoughts of harming others: None Do you have a plan to hurt others: No Plan Recently lost weight without trying: No Nutrition Risks: No Nutritional Risk Poor oral hygiene: No service: No Sexual orientation: Don't Know Meds Allergies Allergy/AdvReac Type Severity Reaction Status Date / Time peanut Allergy Hives Verified 06/25/25 19:43 seafood Allergy Unknown Verified 06/25/25 19:43 shellfish derived (shellfish) Allergy Unknown Verified 06/25/25 19:43 oxcarbazepine (From AdvReac Intermediate Rash Verified 06/25/25 19:43 Trileptal) Active Medications: Current Medications Acetaminophen (Acetaminophen 325 Mg Tablet) 650 mg PO Q6H PRN PRN Reason: Headache/Pain, Scale 1-10 Al Hydroxide/Mg Hydroxide (Magnesium Hydrox/Alum Hydrox 30 Ml Oral.Susp) 30 ml PO Q6H PRN PRN Reason: Heartburn/Nausea Hydroxyzine HCl (Hydroxyzine Hcl 25 Mg Tablet) 25 mg PO Q6H PRN PRN Reason: mild anxiety Magnesium Hydroxide (Milk Of Magnesia 30 Ml Oral.Susp) 30 ml PO DAILY PRN PRN Reason: Constipation Nicotine (Nicotine 21 Mg Patch.Td24) 21 mg TRANSDERMA DAILY [facility] Last Admin: 06/27/25 08:24 Dose: Not Given Nicotine Polacrilex (Nicotine Polacrilex 2 Mg Gum) 4 mg BUCCAL Q2H PRN PRN Reason: Nicotine Cravings Olanzapine (Olanzapine 5 Mg Tablet) 5 mg PO Q4H PRN PRN Reason: agitation Risperidone (Risperidone 3 Mg Tablet) 6 mg PO BEDTIME [facility] Last Admin: 06/26/25 21:50 Dose: 6 mg Trazodone HCl (Trazodone Hcl 50 Mg Tablet) 50 mg PO BEDTIME MRX1 PRN PRN Reason: Insomnia Physical Exam 2 Vital Signs and Narrative: Vital Signs: Last Vital Signs Temp 97.8 F 06/27/25 08:00 Pulse 94 06/27/25 08:00 Resp 18 06/27/25 08:00 BP 130/73 06/27/25 08:00 Pulse Ox 98 06/27/25 08:00 O2 Del Method Room Air 06/27/25 08:00 BMI result Body Mass Index 30.9 CONST: Alert and oriented, in NAD. Well nourished HEENT: Normocephalic, atraumatic, MMM, Eyes clear, Neck supple RESP: Lungs clear, RRR even and regular HEART:,RRR, S1, S2. No murmur, no edema GI:Abdomen Soft NT, ND. + BS times four :Deferred SKIN: Warm dry and intact, no visible lesions or rashes NEURO:CN II-XII Intact bilaterally, Sensation intact. Speech clear PSYCH: Flat affect, cooperative Results Labs 06/25/25 20:35 06/27/25 07:33 Labs: Laboratory Results - last 24 hr 06/27/25 07:33 Anion Gap 16 Estim Creat Clear Calc 138.1 Estimated GFR > 60 Random Glucose 93 Estimat Average Glucose 100 Hemoglobin A1c % 5.1 Calcium 9.3 Total Bilirubin 0.4 AST 37 ALT 55 H Alkaline Phosphatase 69 Total Protein 7.2 Albumin 4.7 Triglycerides 148 Cholesterol 196 LDL Cholesterol, Calc 105 H HDL Cholesterol 62 Assessment and Plan (1) Auditory hallucinations: Status: Acute Plan 25-year-old male with history of schizophrenia, depression and anxiety, causing and security presented to the ED with auditory hallucinations, he is admitted to the inpatient level of care for treatment. Anxiety/depression/schizophrenia/auditory hallucinations/housing insecurity Treatment per psychiatric team Thank you for allowing me to participate in the care of this patient. Signing off at this time. Please reconsult of any acute concerns or issues arise
--- NOTE | 2025-06-27 09:05 | P.HPPS_ITS ---
[facility] Date of Service: 06/27/25 Chief Complaint: crisis Sources of Information: patient interviewed, chart reviewed and crisis/core team assessment reviewed [facility] Subjective Notes: Ward Warning and Conditional Voluntary Narrative: Patient is a 25-year-old male with history of schizophrenia who presented to ER due to auditory hallucinations secondary to medication noncompliance. Per crisis report, patient was discharged from on 05/22/2025. Patient reports he is homeless and not engaging with his outpatient providers. Patient stated his hallucinations are telling him he is not safe . Patient presented as guarded and paranoid. He reports poor sleep but good appetite. Denied SI/HI/VH. History of multiple inpatient psychiatric hospitalizations. History of marijuana use. Denies any other substance use. During admission assessment, patient presents alert and oriented x3. Calm and cooperative. Patient reports feeling anxious ; patient stated, I'm not feeling safe sleeping outside. Anything can happen. The long term they brought me to doesn't let you smoke weed so I have to find a different long term . Patient reports having auditory hallucinations telling him that he is not safe. Patient reports he has been medication compliant since discharge. Patient stated, I'm not sure where they got that from. I have been taking them everyday since I got discharged . Patient reports he came to the hospital due to having auditory hallucinations. Patient stated, I'm not hearing them anymore. I have never had thoughts of hurting myself . Patient denies SI/HI/VH/AH. Past Psychiatric History: History of multiple inpatient psychiatric hospitalizations. Outpatient psychiatrist Betzy Ramirez- [facility] Therapist: Does not have one. [facility] renal case manager: Sivakumar Salmeron Medical Evaluation Reviewed: Yes COUNTS INCLUDE 234 BEDS AT THE [facility] Medical History Anoxic brain injury Homeless Cannabis use disorder Family History: unknown Social History: Homeless. single. no kids. disability. high school diploma. Substance History: Pt reports marijuana use daily. denies any other substance use. Trauma History: Denies Diagnostics Vital Signs (24Hr): Vital Signs - 24 hr 06/26/25 12:55 06/26/25 20:09 06/27/25 08:00 Temperature 96.3 F L 97 F 97.8 F Pulse Rate 72 69 94 Respiratory Rate 16 18 Blood Pressure 120/76 117/65 130/73 Pulse Oximetry 97 96 98 Oxygen Delivery Method Room Air Room Air Room Air BMI result Body Mass Index 30.9 Labs 06/25/25 20:35 06/27/25 07:33 Labs: Laboratory Results - last 48 hr 06/25/25 06/26/25 06/27/25 20:35 01:55 07:33 WBC 4.8 RBC 3.94 L Hgb 12.3 L Hct 36.0 L MCV 91.4 MCH 31.2 MCHC 34.2 RDW 13.6 Plt Count 258 MPV 9.6 Immature Gran % (Auto) 0.4 Neut % (Auto) 33.2 L Lymph % (Auto) 43.9 H [place] % (Auto) 14.6 H Eos % (Auto) 7.3 H Baso % (Auto) 0.6 Lymph # (Auto) 2.1 [place] # (Auto) 0.7 Eos # (Auto) 0.4 Baso # (Auto) 0.0 Abs Immat Gran (auto) 0.02 Absolute Neuts (auto) 1.6 L Absolute Nucleated RBC 0.000 Nucleated RBC % (auto) 0.0 Sodium 140 142 Potassium 3.5 D 4.6 D Chloride 103 105 Carbon Dioxide 27 26 Anion Gap 14 16 BUN 18 H 22 H Creatinine 1.00 0.93 Estim Creat Clear Calc 130.9 138.1 Estimated GFR > 60 > 60 Random Glucose 107 93 Estimat Average Glucose 100 Hemoglobin A1c % 5.1 Calcium 9.3 9.3 Total Bilirubin 0.3 0.4 AST 54 H 37 ALT 67 H 55 H Alkaline Phosphatase 69 69 Total Protein 7.0 7.2 Albumin 4.8 4.7 Triglycerides 148 Cholesterol 196 LDL Cholesterol, Calc 105 H HDL Cholesterol 62 Urine Color Yellow Urine Appearance Clear Urine pH 6.5 Ur Specific [place] 1.020 Urine Protein Negative Urine Glucose (UA) Negative Urine Ketones Negative Urine Blood Negative Urine Nitrite Negative Ur Leukocyte Esterase Negative Salicylates < 5.0 L Urine Opiates Screen Not Detected Ur Buprenorphine Scrn Not Detected Ur Oxycodone Screen Not Detected Urine Methadone Screen Not Detected Urine Fentanyl Screen Not Detected Acetaminophen < 3 Ur Barbiturates Screen Not Detected Ur Phencyclidine Scrn Not Detected Ur Amphetamines Screen Not Detected U Benzodiazepines Scrn Not Detected Urine Cocaine Screen Not Detected U Marijuana (THC) Screen POSITIVE H Ethyl Alcohol < 10 Meds/Allergies Allergies Allergies Allergy/AdvReac Type Severity Reaction Status Date / Time peanut Allergy Hives Verified 06/25/25 19:43 seafood Allergy Unknown Verified 06/25/25 19:43 shellfish derived (shellfish) Allergy Unknown Verified 06/25/25 19:43 oxcarbazepine (From AdvReac Intermediate Rash Verified 06/25/25 19:43 Trileptal) Mental Status Exam Mental Status Exam Patient Appearance: Appropriate Patient Orientation: Person, Place, Time and Situation Level of Consciousness: Awake and Alert Patient Behavior: Appropriate, Cooperative and Good Eye Contact Mood Description: Calm and Fearful Affect Description: Calm Ability to Follow Directions: Good Speech Pattern: Clear and Soft-Spoken Memory Description: Intact Hallucinations: None Delusions: Not Present Thought Process: Intact Thought Content: positive for Intact Assessment & Plan Assessment & Plan (1) Schizophrenia: Status: Acute Code(s): F20.9 - Schizophrenia, unspecified (2) Homeless: Status: Acute Code(s): Z59.00 - Homelessness unspecified Plan Patient is a 25-year-old male with history of schizophrenia who presented to ER due to auditory hallucinations secondary to medication noncompliance. Plan: CV 15 minute safety checks continue home medications obtain collateral referral to outpatient therapist encourage groups encourage medication compliance. discharge planning Patient educated on: diagnosis and medication risk/benefits Reason for continued inpatient stay Substantial Risk for: med/psych decompensation Statement Statement: I have reviewed the history and physical and performed a pertinent examination on my patient. No changes have occurred unless specified. If the History and Physical was not performed prior to admission, the Hospitalist's service will be consulted for completing the admission physical. Time Spent With Patient Time: Total time managing care of this patient today _60___ minutes.
--- NOTE | 2025-06-27 13:40 | PC.NURSE ---
pt signed 3 day up on Wednesday07/02/25
[2025-06-27 20:00] VITALS: BP 129/82; PULSE 73; RESP 16; TEMP 36.9; O2SAT 99
[2025-06-28 08:00] VITALS: BP 139/88; PULSE 97; RESP 16; TEMP 36.8; O2SAT 99
--- NOTE | 2025-06-28 10:00 | HO.PSYCHPN ---
Subjective Subjective Reason For Visit: crisis Diagnostics Vital Signs (24Hr): Vital Signs - 24 hr 06/27/25 20:00 Temperature 98.5 F Pulse Rate 73 Respiratory Rate 16 Blood Pressure 129/82 Pulse Oximetry 99 Oxygen Delivery Method Room Air BMI result Body Mass Index 30.9 Labs 06/25/25 20:35 06/27/25 07:33 Labs: Laboratory Results - last 48 hr 06/27/25 07:33 Sodium 142 Potassium 4.6 D Chloride 105 Carbon Dioxide 26 Anion Gap 16 BUN 22 H Creatinine 0.93 Estim Creat Clear Calc 138.1 Estimated GFR > 60 Random Glucose 93 Estimat Average Glucose 100 Hemoglobin A1c % 5.1 Calcium 9.3 Total Bilirubin 0.4 AST 37 ALT 55 H Alkaline Phosphatase 69 Total Protein 7.2 Albumin 4.7 Triglycerides 148 Cholesterol 196 LDL Cholesterol, Calc 105 H HDL Cholesterol 62 Medications Medications Current Medications Acetaminophen (Acetaminophen 325 Mg Tablet) 650 mg PO Q6H PRN PRN Reason: Headache/Pain, Scale 1-10 Al Hydroxide/Mg Hydroxide (Magnesium Hydrox/Alum Hydrox 30 Ml Oral.Susp) 30 ml PO Q6H PRN PRN Reason: Heartburn/Nausea Hydroxyzine HCl (Hydroxyzine Hcl 25 Mg Tablet) 25 mg PO Q6H PRN PRN Reason: mild anxiety Magnesium Hydroxide (Milk Of Magnesia 30 Ml Oral.Susp) 30 ml PO DAILY PRN PRN Reason: Constipation Nicotine (Nicotine 21 Mg Patch.Td24) 21 mg TRANSDERMA DAILY [facility] Last Admin: 06/27/25 08:24 Dose: Not Given Nicotine Polacrilex (Nicotine Polacrilex 2 Mg Gum) 4 mg BUCCAL Q2H PRN PRN Reason: Nicotine Cravings Olanzapine (Olanzapine 5 Mg Tablet) 5 mg PO Q4H PRN PRN Reason: agitation Risperidone (Risperidone 3 Mg Tablet) 6 mg PO BEDTIME [facility] Last Admin: 06/27/25 20:30 Dose: 6 mg Trazodone HCl (Trazodone Hcl 50 Mg Tablet) 50 mg PO BEDTIME MRX1 PRN PRN Reason: Insomnia Allergies Allergies Allergy/AdvReac Type Severity Reaction Status Date / Time peanut Allergy Hives Verified 06/25/25 19:43 seafood Allergy Unknown Verified 06/25/25 19:43 shellfish derived (shellfish) Allergy Unknown Verified 06/25/25 19:43 oxcarbazepine (From AdvReac Intermediate Rash Verified 06/25/25 19:43 Trileptal) Assessment & Plan Assessment & Plan (1) Auditory hallucinations: Status: Acute Code(s): R44.0 - Auditory hallucinations Plan 25-year-old male with history of schizophrenia, depression and anxiety, causing and security presented to the ED with auditory hallucinations, he is admitted to the inpatient level of care for treatment. Anxiety/depression/schizophrenia/auditory hallucinations/housing insecurity Treatment per psychiatric team Thank you for allowing me to participate in the care of this patient. Signing off at this time. Please reconsult of any acute concerns or issues arise Time Spent With Patient Time: Total time managing care of this patient today ____ minutes.
--- NOTE | 2025-06-28 14:16 | PM.PSYDC ---
DS: Providers Provider Date of Service: 06/28/25 Date of admission: 06/26/25 11:44 Date of discharge: 06/28/25 Primary care physician: PATRICIA Mendoza Admitting clinician: Tati Valdez Attending physician on admission: Amish Martin Attending physician on discharge: Amish Martin Discharging clinician: Tati Valdez DS: Diagnosis Discharge Diagnosis (1) Auditory hallucinations: Status: Acute DS: Medications Discharge Medications Home Medications: Previous Rx's ?Medication ?Instructions ?Recorded hydroxyzine pamoate 25 mg capsule 25 mg PO Q6H PRN anxiety 30 days 05/21/25 #60 caps nicotine (polacrilex) 4 mg gum 4 mg buccal Q2H PRN nicotine 05/21/25 (Nicorette) cravings 30 days #100 ea polyethylene glycol 3350 17 gram 17 g PO DAILY PRN constipation 30 05/21/25 oral powder packet days #30 ea risperidone 3 mg tablet 6 mg (2 x 3 mg) PO BEDTIME 30 days 05/21/25 #60 tabs Mental Status Exam Mental Status Exam Narrative: Pt is alert and oriented; behavior is cooperative and calm; dressed in casual attire; mood is described as good ; eye contact appropriate; Speech is normal rate, volume and not pressured; thought process is organized; Thought content is on discharge; denies SI/HI/VH/AH. Data Data Completed and Pending Completed studies during hospitalization [Text1]: 06/25/25 06/26/25 06/27/25 20:35 01:55 07:33 WBC 4.8 RBC 3.94 L Hgb 12.3 L Hct 36.0 L MCV 91.4 MCH 31.2 MCHC 34.2 RDW 13.6 Plt Count 258 MPV 9.6 Immature Gran % (Auto) 0.4 Neut % (Auto) 33.2 L Lymph % (Auto) 43.9 H Pettis % (Auto) 14.6 H Eos % (Auto) 7.3 H Baso % (Auto) 0.6 Lymph # (Auto) 2.1 Pettis # (Auto) 0.7 Eos # (Auto) 0.4 Baso # (Auto) 0.0 Abs Immat Gran (auto) 0.02 Absolute Neuts (auto) 1.6 L Absolute Nucleated RBC 0.000 Nucleated RBC % (auto) 0.0 Sodium 140 142 Potassium 3.5 D 4.6 D Chloride 103 105 Carbon Dioxide 27 26 Anion Gap 14 16 BUN 18 H 22 H Creatinine 1.00 0.93 Estim Creat Clear Calc 130.9 138.1 Estimated GFR > 60 > 60 Random Glucose 107 93 Estimat Average Glucose 100 Hemoglobin A1c % 5.1 Calcium 9.3 9.3 Total Bilirubin 0.3 0.4 AST 54 H 37 ALT 67 H 55 H Alkaline Phosphatase 69 69 Total Protein 7.0 7.2 Albumin 4.8 4.7 Triglycerides 148 Cholesterol 196 LDL Cholesterol, Calc 105 H HDL Cholesterol 62 Urine Color Yellow Urine Appearance Clear Urine pH 6.5 Ur Specific Avery 1.020 Urine Protein Negative Urine Glucose (UA) Negative Urine Ketones Negative Urine Blood Negative Urine Nitrite Negative Ur Leukocyte Esterase Negative Salicylates < 5.0 L Urine Opiates Screen Not Detected Ur Buprenorphine Scrn Not Detected Ur Oxycodone Screen Not Detected Urine Methadone Screen Not Detected Urine Fentanyl Screen Not Detected Acetaminophen < 3 Ur Barbiturates Screen Not Detected Ur Phencyclidine Scrn Not Detected Ur Amphetamines Screen Not Detected U Benzodiazepines Scrn Not Detected Urine Cocaine Screen Not Detected U Marijuana (THC) Screen POSITIVE H Ethyl Alcohol < 10 DS: Summary Hospital Course Hospital Course: Patient is a 25-year-old male with history of schizophrenia who presented to ER due to auditory hallucinations secondary to medication noncompliance. Per crisis report, patient was discharged from on 05/22/2025. Patient reports he is homeless and not engaging with his outpatient providers. Patient stated his hallucinations are telling him he is not safe . Patient presented as guarded and paranoid. He reports poor sleep but good appetite. Denied SI/HI/VH. History of multiple inpatient psychiatric hospitalizations. History of marijuana use. Denies any other substance use. During admission assessment, patient presents alert and oriented x3. Calm and cooperative. Patient reports feeling anxious ; patient stated, I'm not feeling safe sleeping outside. Anything can happen. The long term they brought me to doesn't let you smoke weed so I have to find a different long term . Patient reports having auditory hallucinations telling him that he is not safe. Patient reports he has been medication compliant since discharge. Patient stated, I'm not sure where they got that from. I have been taking them everyday since I got discharged . Patient reports he came to the hospital due to having auditory hallucinations. Patient stated, I'm not hearing them anymore. I have never had thoughts of hurting myself . Patient denies SI/HI/VH/AH. Plan: CV 15 minute safety checks continue home medications obtain collateral referral to outpatient therapist encourage groups encourage medication compliance. discharge planning Patient reports feeling good ; Patient stated, I'm not feeling anxious or depressed. I slept good . Per nursing, slept 7 hours last night. Continues to deny SI/HI/VH/AH. Patient reports he was able to obtain a bed at [facility] in [place], [place]. Patient is requesting to be discharged today to be able to keep bed at long term. Patient reports he plans on following up with his outpatient providers and states he does not need refills on his prescription since he already has them . Status at Discharge Cognitive/behavioral status at discharge: Patient has insight and demonstrates good judgment in terms of wanting to pursue treatment. Patient has a safety plan that includes presenting to the closest ER or calling 911 if feeling unsafe. Functional status at discharge: independent ambulation Overall status at discharge: patient is back to baseline Time Spent with Patient Time attestation: Total time managing care of this patient today _20___ minutes. Time spent: Less than 30 minutes Discharge Plan Discharge Anticipated Discharge Date/Time: 06/28/25 15:00 Patient Disposition: Home, Self-Care Discharge Diagnosis: Schizophrenia Referrals: Angie Pruitt (Therapy) [Other] - 07/09/25 10:00 am Referral Note: IN OFFICE APPOINTMENT Betzy Ramirez (Psychiatry) [Other] - 07/24/25 9:00 am Referral Note: TELEHEALTH APPOINTMENT Grecia Holder FNP [Primary Care Provider, Family Practice] - 1 Week Discharge Medications: Continued risperidone 3 mg tablet 6 mg PO BEDTIME 30 Days Qty: 60 1RF Discontinued polyethylene glycol 3350 17 gram Powder In Packet 17 g PO DAILY PRN (Reason: constipation) 30 Days Qty: 30 0RF nicotine (polacrilex) [Nicorette] 4 mg gum 4 mg buccal Q2H PRN (Reason: nicotine cravings) 30 Days Qty: 100 0RF hydroxyzine pamoate 25 mg capsule 25 mg PO Q6H PRN (Reason: anxiety) 30 Days Qty: 60 1RF Discharge Orders: Discharge Order (Routine); Ordered 06/28/25 Ordered By: Tati Valdez Diet: Regular diet Activity on Discharge: As tolerated Stand Alone Forms: Patient Portal Discharge page Print Language: Ecuadorean Care Plan Goals: Maintain mood and safe behaviors Take medications as prescribed Practice coping skills Continue with outpatient providers and reach out to them as needed Health Concerns: Mood stability and behaviors Plan of Treatment: Follow up with your PCP, psychiatric provider and other outpatient providers regarding above concerns Take medications as prescribed Assessment: Patient has insight and demonstrates good judgment in terms of wanting to pursue treatment. Patient has a safety plan that includes presenting to the closest ER or calling 911 if feeling unsafe.
== END 2025-06-28 14:52 | disposition home or self-care (01) | DRG 885 ==
LOC: HO.ED 22:42 → HO.PADLT16 06-26 11:50
PROVIDERS: Physician Assistant Medical; Admitting Provider Registered Nurse; Emergency Provider Emergency Medicine; PCP Registered Nurse; Responsible Provider Registered Nurse; Visit Provider Psychiatry & Neurology Psychiatry
DX: F20.9 Schizophrenia, unspecified (principal); Z59.02 Unsheltered homelessness
CPT/HCPCS: 36415; 80053; 80061; 80143; 80179; 80307; 81003; 83036; 85025; 93005; 99285; S9485

== ENCOUNTER → 2025-06-26 09:01 | Outpatient (BNV) | payer MEDICARE, MEDICAID, SELFPAY | PROVIDERS: Admitting Provider Registered Nurse; Emergency Provider Emergency Medicine; PCP Registered Nurse; Visit Provider Internal Medicine | DX: I45.4 Nonspecific intraventricular block (principal) | CPT/HCPCS: 93010 ==

== ENCOUNTER → 2025-06-26 11:44 | Outpatient (BNV) | payer MEDICARE, MEDICAID, SELFPAY | PROVIDERS: Admitting Provider Registered Nurse; Emergency Provider Emergency Medicine; PCP Registered Nurse; Responsible Provider Registered Nurse; Visit Provider Nurse Practitioner Family | DX: R44.0 Auditory hallucinations (principal) | CPT/HCPCS: 99221 ==

== ENCOUNTER → 2025-06-26 11:44 | Outpatient (BNV) | payer MEDICARE, MEDICAID, SELFPAY | PROVIDERS: Admitting Provider Registered Nurse; Emergency Provider Emergency Medicine; PCP Registered Nurse; Responsible Provider Registered Nurse; Visit Provider Registered Nurse | DX: F20.9 Schizophrenia, unspecified (principal); Z59.00 Homelessness unspecified | CPT/HCPCS: 90792 ==